=== PATIENT | female | born 1945 | race Caucasian/White ===

== ENCOUNTER 2017-12-02 12:15 | Inpatient (IN) | payer MEDICARE ==
[2017-12-02] MEDS ORDERED: Albuterol Sulfate 2.5 mg/3 ml Neb ONE ×2 (12:41→12:42)
[2017-12-02] MEDS ORDERED: methylPREDNISolone Sod Succ/PF 125 MG/2 ML VIAL ONE (13:09)
[2017-12-02] MEDS ORDERED: Water For Inject, Bacteriostat 30 ML ONE (13:09)
[2017-12-02 13:13] LABS: #Eosinphils 0.1 thou/uL (0.0-0.7); #Lymphocytes 0.6 thou/uL (1.20-3.40); #Monocytes 0.8 thou/uL (0.11-0.59); #Neutrophils 6.8 thou/uL (1.40-6.50); %Basophils 0.1 % (0.0-1.0); %Eosinophils 1.3 % (0.0-10.0); %Lymphocytes 7.5 % (21.0-51.0); %Monocytes 9.6 % (0.0-10.0); %Neutrophils 81.4 % (42.0-75.0); Hemoglobin 9.9 g/dL (12.0-16.0); Mean Corpuscular HGB CONC 31.2 g/dL (32.0-36.0); Mean Corpuscular Hemoglobin 30.4 pg (27.0-31.0); Mean Corpuscular Volume 97.5 fL (78.0-98.0); Mean Platelet Volume 8.8 fL (7.4-10.4); Platelet Count 173 thou/uL (130-400); RBC Distribution Width 14.3 % (11.5-14.5); Red Blood Cell (RBC) Count 3.25 mill/uL (4.20-5.40); White Blood Cell (WBC) Count 8.4 thou/uL (4.8-10.8)
[2017-12-02 13:26] LABS: ALT (SGPT) 21 U/L (8-55); AST (SGOT) 31 U/L (5-34); Albumin 3.8 g/dL (3.4-4.8); Alkaline Phosphatase 64 U/L (40-150); BUN (Urea Nitrogen) 66 mg/dL (9.8-20.1); Bilirubin, Total 0.5 mg/dL (0.2-1.2); CK (CPK) 42 U/L (29-168); Calc. Creatinine Clearance 0 mL/min (70-130); Calcium 9.9 mg/dL (7.8-10.44); Estimated GFR-MDRD 33; Globulin 5.1 g/dL (2.4-3.5); Glucose 171 mg/dL (80-115); Protein, Total 8.9 g/dL (6.0-8.3)
[2017-12-02 13:30] LABS: CKMB 2.4 ng/mL (0-6.6); Troponin I 0.086 ng/mL (< 0.028)
[2017-12-02] MEDS ORDERED: Magnesium 2 GM/50 ML 2 GM in Premix Bag 1 BAG IVPB SCH (13:30)
[2017-12-02 13:36] LABS: Anion Gap 22 mmol/L (10-20); Carbon Dioxide 32 mmol/L (23-31); Chloride 87 mmol/L (98-107); Potassium 5.1 mmol/L (3.5-5.1); Sodium 136 mmol/L (136-145)
[2017-12-02 13:47] LABS: Actual Bicarbonate (HCO3a) 55.2 mEq/L (22-28); Analyzer IN Cardio ER; Base Excess (BEa) 21.9 mEq/L (-2.0 to +3.0); Calcium, Ionized 1.21 mmol/L (1.12-1.30); Hemoglobin (Hb) 10.5 g/dL (12.0-16.0); O2 Tension (PaO2) 66.4 mmHg (> 70.0); Potassium - ABG Lab 4.64 mmol/L (3.70-5.30)
[2017-12-02 14:23] LABS: Lactic Acid 2.7 mmol/L (0.5-2.2)
--- NOTE | 2017-12-02 14:33 | RAD ---
CHEST 1 VIEW: Date: 12/02/17 HISTORY: 71-year-old female with history of dyspnea, history of CODP, worse today. COMPARISON: 07/29/16. FINDINGS: Cardiomegaly with bilateral vascular congestion and interstitial and alveolar parenchymal changes, wh ich appear slightly more prominent in the right upper lobe than on the most recent study of 07/29/16, although when compared to an older study of 07/26/16, the overall appearance is stable. IMPRESSION: Marked stable cardiomegaly with bilateral vascular congestion and increased linear and interstitial m arkings noted bilaterally with small pleural effusions. Slightly more focally prominent alveolar and interstitial parenchymal disease in the right upper lobe when compared to 07/29/16, raising concern f or small patchy of right upper lobe pneumonia. Correlation with clinical and laboratory findings. Tessa rt-term follow-up for complete clearing or stability is suggested. POS: [facility]
[2017-12-02] MEDS ORDERED: Cefepime 2 GM VIAL ONE (15:15)
[2017-12-02] MEDS ORDERED: ISOVUE-370 76%-LOCM 1 ML ONE (15:17)
[2017-12-02] MEDS ORDERED: CCU Electrolyte Replacement 1 EACH IVPB SCH (15:55)
[2017-12-02] MEDS ORDERED: Bisacodyl 5 MG TAB PO PRN (15:55)
[2017-12-02] MEDS ORDERED: Acetaminophen 650 MG Suppository PR PRN (15:55)
--- NOTE | 2017-12-02 16:24 | CT ---
CTA CHEST WITH CONTRAST WITH 3D VOLUME RENDERING: Indication: Chest pain. Shortness of breath. FINDINGS: There is prominence of the pulmonary arterial system which may relate to sequellae from pulmonary art tamir hypertension. There is no significant filling defect to indicate acute pulmonary embolus. Scatter ed vascular disease is present including coronary artery calcium. There is enlargement of the cardiac chambers. Several enlarged thoracic lymph nodes are present. There is a 3.8 cm transverse left poste rior apical mass with spiculated enlargement. Diffuse ground glass opacity and interstitial prominenc e of lung is present. There is bilobed nodularity of the anterior right upper lobe measuring 2.8 cm. Bilateral pleural based irregularity and thickening is seen. There is abnormal soft tissue mass like expansion with osseous destruction involving anterior right second rib indicative of a metastatic les ion. There is nonspecific mild wall prominence of the visualized esophagus with retained ingested mat erial IMPRESSION: 1. There is no evidence of pulmonary embolus. 2. Left upper lobe mass and right upper lobe nodularity indicative of malignancy. 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 3. Metastatic adenopathy of the chest. 4. Enlarged pulmonary arterial system indicating pulmonary artery hypertension. 5. Recommend pulmonary medicine consultation for further care. POS: [facility]
--- NOTE | 2017-12-02 16:59 | HP ---
DATE OF ADMISSION: 12/02/2017 PRIMARY CARE PROVIDER: Dr. Jayant Delgado in [place]. CHIEF COMPLAINT: Shortness of breath. HISTORY OF PRESENT ILLNESS: Ms. Chavez is a 71-year-old lady who was seen at [facility] on 12/02/2017. The patient is currently lethargic, unable to provide any significant histor y. History was obtained from her daughter and granddaughter by the bedside, review of medical record s and discussion with emergency room physician. Ms. Chavez has chronic obstructive pulmonary disease and is followed by Dr. Finnegan as outpatient. Two days ago, she became drowsy and lethargic. She developed shortness of breath yesterday. Family reports that she has a chronic cough with whitish sputum, which has not changed recently. There is n o history of any fevers, chest pain, nausea, vomiting or diarrhea. No sick contacts at home. She agosto s not received the influenza vaccine this year. Today, she went into the bathroom and fell, injuring her mid back. No history of head trauma or loss of consciousness. REVIEW OF SYSTEMS: Could not be completed secondary to the patient's noncooperation. PAST MEDICAL HISTORY: Chronic obstructive pulmonary disease, diabetes mellitus, atrial fibrillation, hypertension, congestive heart failure and intubation in the past for respiratory failure. PAST SURGICAL HISTORY: Right breast lumpectomy and tonsillectomy. SOCIAL HISTORY: The patient is an ex-smoker. No alcohol use or recreational drug use. ALLERGIES: She is allergic to ASPIRIN and ERYTHROMYCIN and CODEINE. In our electronic system, she a lso lists RIVAROXABAN, WARFARIN and DABIGATRAN as allergies. Family reports that this is not true al romulo, but she is afraid that she will bruise excessively, which has happened in the past when she wa s on blood thinners and she therefore lists them as allergies. CURRENT MEDICATIONS: Advair Diskus 500/50 mcg 1 puff every 12 hours, metformin 500 mg 2 times a day, diltiazem 90 mg 2 times a day, digoxin 125 mcg daily, anastrozole 1 mg daily, torsemide 20 mg daily, levalbuterol inhalation 4 times a day, ipratropium inhalation 4 times a day, Plavix 75 mg daily, Joseph iresp 500 mcg daily, metolazone as needed, Claritin D 24 hours as needed. CODE STATUS: I discussed her code status with her family members. She is full code. FAMILY HISTORY: No family history of premature coronary artery disease. PHYSICAL EXAMINATION: GENERAL: Ms. Chavez is sleepy, but arousable, not in acute distress. VITAL SIGNS: Blood pressure is 146/73, pulse 76, respiratory rate is 28 and oxygen saturation 96% on bilevel positive airway pressure machine. She is afebrile. EYES: No scleral icterus. No conjunctival pallor. ENT: Difficult to assess because she is still on BiPAP. Mucosal membranes appear moist. NECK: Supple. No lymphadenopathy. Difficult to assess jugular veins. RESPIRATORY: Accessory muscles of breathing are active. Chest wall movements are symmetric bilatera lly. LUNGS: Reveals right upper lobe crackles. CARDIOVASCULAR: S1 and S2 are heard, regular. Peripheral pulses palpable. ABDOMEN: Soft, nontender, bowel sounds are heard, no hepatomegaly. MUSCULOSKELETAL: The patient is moving all four extremities. NEUROLOGIC: Full neurologic examination not possible secondary to the patient's noncooperation. No facial droop. Deep tendon reflexes are 2+. SKIN: No rashes or subcutaneous nodules. She has bilateral lower extremity edema. LYMPHATIC: No cervical lymphadenopathy. PSYCHIATRIC: Unable to assess mood, affect or orientation to person, place or time. LABORATORY DATA: Ms. Chavez's labs and investigations were reviewed. I reviewed her electrocardiogram , which shows right bundle branch block, the patient is in sinus rhythm, no ST changes to suggest an acute coronary syndrome. I also reviewed her chest x-ray, which shows right upper lobe infiltrates. She has normal white count, normocytic anemia with hemoglobin 9.9, normal platelet count, elevated D -dimer of 1.98, normal sodium, normal potassium, elevated blood urea nitrogen of 66, elevated creatin ine of 1.57, last known creatinine 1.08 on 11/22/2017, elevated lactic acid level of 2.7, normal tota l bilirubin, normal AST, normal ALT, indeterminate troponin I of 0.086, elevated BNP of 446.9 and nor mal albumin. Her total protein and globulin levels are elevated. ASSESSMENT AND PLAN: Ms. Chavez is a pleasant 71-year-old lady who was seen at [facility] on 12/02/2017. Her problem list includes: 1. Acute on chronic hypercapnic and hypoxic respiratory failure: Ms. Chavez was saturating low when s he was initially seen. She is now on supplemental oxygen. She does use oxygen at 3 liters per minut e at home. Blood gases have also been done and the emergency room physician reports that she has hyp ercapnia. The official report is not yet available in the computer system. The most likely explanat ion for her respiratory failure is a chronic obstructive pulmonary disease exacerbation, although pne umonia cannot be ruled out at this time given the chest x-ray finding. 2. Congestive heart failure is possible as well, but appears less likely. She will be admitted to [facility] for further management. We will continue her on bilevel positive airway pressure for now . If she continues to be lethargic and does not improve, she may need intubation. 3. Acute on chronic kidney disease stage 3: Ms. Chavez is in acute renal insufficiency, most likely s econdary to poor oral intake. She does have pulmonary vascular congestion and holding off on fluids until the clinical scenarios clear. 4. Chronic obstructive pulmonary disease exacerbation: She has received oxygen, steroids, bronchodi lators, cefepime and levofloxacin. I will continue the same. Pulmonology Service has been consulted by emergency room physician. 5. Diabetes mellitus type 2: We will start Accu-Cheks and insulin sliding scale. 6. Elevated D-dimer: Please note that the patient had CT angiogram of the chest, report is pending. If it is positive for pulmonary embolism, we will start her on heparin drip. 7. Hypertension: Monitor vital signs, titrate antihypertensives as needed. Many thanks for allowing me to participate in your patient's care. Please feel free to contact me wi th any questions or concerns. LEVEL OF RISK: High. LEVEL OF COMPLEXITY: High.
[2017-12-02 17:29] LABS: pH, Arterial 7.19 (7.35-7.45)
[2017-12-02 17:30] LABS: ALV-art Gradient 249.325 (0-20); CO2 Tension 146.7 mmHg (35.0-45.0); Puncture Site RBA
[2017-12-02] MEDS ORDERED: CCU ELECTROLYTE REPLACEMENT PROTOCOL FS PRN (18:23)
[2017-12-02] MEDS ORDERED: Magnesium Oxide 400 MG TAB PO PRN ×2 (18:23)
[2017-12-02] MEDS ORDERED: Potassium Chloride 40 MEQ in Premix Bag 1 BAG IVPB PRN (18:23)
[2017-12-02] MEDS ORDERED: Potassium Phosphate 12 MMOL in Sodium Chloride 0.9% 250 ML 250 ML IV PRN (18:23)
[2017-12-02] MEDS ORDERED: Potassium Phosphate 15 MMOL in Sodium Chloride 0.9% 250 ML 250 ML IV PRN (18:23)
[2017-12-02] MEDS ORDERED: Potassium Phosphate 9 MMOL in Sodium Chloride 0.9% 100 ML IVPB PRN (18:23)
[2017-12-02] MEDS ORDERED: Potassium Chloride 20 MEQ TAB PO PRN (18:23)
[2017-12-02] MEDS ORDERED: Magnesium 2 GM/NS 0.9% 100 ML 2 GM in Premix Bag 1 BAG IVPB PRN (18:23)
[2017-12-02] MEDS ORDERED: Potassium Chloride 40 MEQ in Sodium Chloride 0.9% 250 ML 250 ML IVPB PRN (18:23)
[2017-12-02 19:49] LABS: Troponin I 0.088 ng/mL (< 0.028)
[2017-12-02] MEDS ORDERED: hydrALAZINE 20 MG/ML VIAL SLOW IVP SCH (20:30)
[2017-12-02] MEDS: Heparin 5,000 UNITS/ML VIAL SC SCH (21:02)
[2017-12-03 04:26] LABS: #Lymphocytes 0.4 thou/uL (1.20-3.40); #Monocytes 0.4 thou/uL (0.11-0.59); #Neutrophils 4.3 thou/uL (1.40-6.50); %Basophils 0.1 % (0.0-1.0); %Eosinophils 0.9 % (0.0-10.0); %Lymphocytes 7.3 % (21.0-51.0); %Monocytes 7.4 % (0.0-10.0); %Neutrophils 84.4 % (42.0-75.0); Hemoglobin 9.5 g/dL (12.0-16.0); Mean Corpuscular HGB CONC 30.2 g/dL (32.0-36.0); Mean Corpuscular Hemoglobin 29.4 pg (27.0-31.0); Mean Corpuscular Volume 97.4 fL (78.0-98.0); Mean Platelet Volume 8.8 fL (7.4-10.4); Platelet Count 164 thou/uL (130-400); RBC Distribution Width 14.1 % (11.5-14.5); Red Blood Cell (RBC) Count 3.24 mill/uL (4.20-5.40); White Blood Cell (WBC) Count 5.1 thou/uL (4.8-10.8)
[2017-12-03 04:43] LABS: BUN (Urea Nitrogen) 69 mg/dL (9.8-20.1); Calc. Creatinine Clearance 40 mL/min (70-130); Calcium 9.5 mg/dL (7.8-10.44); Estimated GFR-MDRD 33; Glucose 195 mg/dL (80-115)
[2017-12-03 04:52] LABS: Anion Gap 16 mmol/L (10-20); Carbon Dioxide 36 mmol/L (23-31); Chloride 87 mmol/L (98-107); Potassium 5.3 mmol/L (3.5-5.1); Sodium 134 mmol/L (136-145)
[2017-12-03] MEDS ORDERED: hydrALAZINE 20 MG/ML VIAL SLOW IVP PRN (05:11)
[2017-12-03] MEDS: Heparin 5,000 UNITS/ML VIAL SC SCH ×3 (09:42→20:31)
--- NOTE | 2017-12-03 12:10 | CON ---
DATE OF CONSULTATION: 12/03/2017 SERVICE: Pulmonary Medicine. REASON FOR CONSULTATION: Respiratory failure. HISTORY OF PRESENT ILLNESS: The patient is a 71-year-old white female with past medical history significant for very severe COPD. She was in her usual state of health until about 2 days prior to admission when she started having increasing shortness of breath, lower extremity swelling, cough and orthopnea. Ultimately, she was so weak and short of breath that she fell. She was brought to the Emergency Department where she was found to be profoundly hypoxemic and hypercapnic. Her mentation, however, was actually pretty good. They put her on BiPAP and she responded to therapy pretty quickly. She denies any current fevers or chills. She has been coughing up copious amounts of phlegm. It slimy and white. It did not have any color to it. She denies having hemoptysis. She has not been having significant changes to her weight or night sweats. She does get hot and cold fairly easily, but this is a lifelong thing and there has not been any change to that recently. Overnight, she was placed on BiPAP. She is talking in full sentences with BiPAP, but without it, she decompensates fairly quickly. PAST MEDICAL HISTORY: 1. COPD, very severe. 2. Chronic hypoxic respiratory failure. 3. Type 2 diabetes mellitus. 4. Atrial fibrillation. 5. Hypertension. 6. Chronic diastolic heart failure. 7. Mitral regurgitation. 8. Pulmonary hypertension. PAST SURGICAL HISTORY: 1. Lumpectomy of the right breast. 2. Tonsillectomy. SOCIAL HISTORY: She has a former history of smoking. She had a greater than 50 -pack-year history, but quit within the last 10 years. She denies any alcohol or illicit drug use. She has no exposure to chemicals, dust, asbestos or tuberculosis. FAMILY HISTORY: Noncontributory. ALLERGIES: ASPIRIN, ERYTHROMYCIN, CODEINE, XARELTO, PRADAXA, COUMADIN. REVIEW OF SYSTEMS: General, head, ears, eyes, nose, throat, cardiovascular, respiratory, GI, , musculoskeletal, neurologic and skin is negative except as mentioned in the HPI. PHYSICAL EXAMINATION: VITAL SIGNS: Afebrile. Pulse 85, blood pressure 167/95, respirations 23, saturation 95% on BiPAP. She is requiring 40% FiO2 and a PEEP of 5. GENERAL: The patient is awake and alert, in no apparent distress. LUNGS: Excellent air entry. Rhonchi are present throughout bilateral lung cloud. There are also extensive crackles. Dependent wheezing is present with a prolonged expiratory phase. HEART: Normal rate, regular. ABDOMEN: Soft, nontender, nondistended. Bowel sounds are positive. MUSCULOSKELETAL: No cyanosis or clubbing. There is diffuse 2+ to 3+ pitting throughout. GENITOURINARY: No Lyon catheter. NEUROLOGIC: Grossly nonfocal. LABORATORY DATA: WBC 5.1, hemoglobin 9.5, platelets 164,000. INR 0.9. D- dimer 1.98. PH 7.19, pCO2 150, pO2 66. Creatinine 1.57 and roughly stable. Basic metabolic profile is otherwise unremarkable. Potassium is up trending to 5.3. Chloride and sodium are both elevated. Troponin is gently up trending to 0.08. Liver function studies were previously unremarkable. Her BNP is at a historic high of 450. Urinalysis is unremarkable. Digoxin level was recently 1.12. Gram positive cocci is growing in one blood culture. The species is yet to be identified. IMAGING: CTA of the chest demonstrates a small amount of infiltrate in the right base. There is excessive interstitial fullness and ground glass opacifications scattered throughout bilateral lungs. This is in keeping with her volume overload state. She also has a left upper lobe mass, which is new. ASSESSMENT: 1. Acute on chronic hypoxic and hypercapnic respiratory failure. 2. Chronic obstructive pulmonary disease with acute exacerbation. 3. Community-acquired pneumonia, possible. 4. Pulmonary mass. 5. Acute on chronic diastolic and valvular heart failure. DISCUSSION: We will need to start to diurese this patient. She has a little bit of an acute kidney injury, but clinically she is volume overload and I think she can tolerate some Lasix. We will continue her antibiotics, nebulized medications and steroids. Once her respiratory issues are under better control , she will need a biopsy of this left upper lobe mass, but we will be able to postpone that for a couple of days if not a week to optimize her breathing. Pulmonary Critical Care will continue to follow along. She will certainly need to remain in the IMCU until she can tolerate full BiPAP breaks for 24 hours. 70 minutes have been devoted to this patient in various activities. I personally reviewed all imaging studies and laboratory data noted within this document. For fifty percent of this time, I was interacting with the patient at the bedside or coordinating care with the care team. For the remainder of the time I was immediately available to the patient in the hospital unit. MAHIN
[2017-12-03] MEDS ORDERED: Diltiazem HCl SR 90 mg Capsule PO SCH (12:15)
[2017-12-03] MEDS: Furosemide 40 MG/4 ML VIAL SLOW IVP SCH (15:39)
[2017-12-03] MEDS ORDERED: Cefepime 1 GM in Sodium Chloride 0.9% 100 ML IVPB SCH (16:00)
[2017-12-03] MEDS: Diltiazem HCl SR 90 mg Capsule PO SCH (20:30)
[2017-12-03] MEDS ORDERED: Vancomycin HCl 1 GM in Premix Bag 1 BAG IVPB SCH (21:00)
[2017-12-03] MEDS: Acetaminophen 325 MG TAB PO PRN (21:12)
[2017-12-04 04:48] LABS: #Lymphocytes 0.4 thou/uL (1.20-3.40); #Monocytes 0.7 thou/uL (0.11-0.59); #Neutrophils 5.1 thou/uL (1.40-6.50); %Basophils 0.1 % (0.0-1.0); %Eosinophils 0.3 % (0.0-10.0); %Monocytes 11.4 % (0.0-10.0); %Neutrophils 81.2 % (42.0-75.0); Hemoglobin 9.1 g/dL (12.0-16.0); Mean Corpuscular HGB CONC 30.9 g/dL (32.0-36.0); Mean Corpuscular Hemoglobin 29.8 pg (27.0-31.0); Mean Corpuscular Volume 96.3 fL (78.0-98.0); Mean Platelet Volume 8.8 fL (7.4-10.4); Platelet Count 184 thou/uL (130-400); RBC Distribution Width 13.9 % (11.5-14.5); Red Blood Cell (RBC) Count 3.06 mill/uL (4.20-5.40); White Blood Cell (WBC) Count 6.3 thou/uL (4.8-10.8)
[2017-12-04 05:08] LABS: BUN (Urea Nitrogen) 67 mg/dL (9.8-20.1); Calc. Creatinine Clearance 49 mL/min (70-130); Calcium 9.1 mg/dL (7.8-10.44); Estimated GFR-MDRD 40; Glucose 111 mg/dL (80-115); Magnesium 2.5 mg/dL (1.6-2.6); Phosphorus 2.5 mg/dL (2.3-4.7)
[2017-12-04 05:12] LABS: Digoxin 1.02 ng/mL (0.8-2.0)
[2017-12-04 05:17] LABS: Anion Gap 14 mmol/L (10-20); Carbon Dioxide 40 mmol/L (23-31); Chloride 92 mmol/L (98-107); Potassium 4.7 mmol/L (3.5-5.1); Sodium 141 mmol/L (136-145)
[2017-12-04] MEDS: Furosemide 40 MG/4 ML VIAL SLOW IVP SCH (06:11)
[2017-12-04] MEDS: Acetaminophen 325 MG TAB PO PRN (06:26)
--- NOTE | 2017-12-04 08:44 | PDOC.PN ---
- Subjective Encounter Start Date: 12/03/17 Encounter Start Time: 15:40 -: old records requested/rev Pt seen and examined, chart reviewed in its entirety, this is my first visit with this patient follow up for AECOPD, acute on chronic hypoxemic and hypercapneic resp failure No F/C, no N/V/D/C, no CP no cough or sputum production. BiPAP dependant at the moment All systems reviewed and neg except as above - Objective Resuscitation Status: Resuscitation Status FULL:Full Resuscitation MAR Reviewed: Yes Vital Signs & Weight: Vital Signs (12 hours) Temp Pulse Resp BP Pulse Ox 12/04/17 07:58 89 L 12/04/17 07:55 76 20 89 L 12/04/17 07:40 88 L 12/04/17 07:37 98.2 F 73 28 H 161/88 H 95 12/04/17 04:00 98.2 F 81 21 H 163/84 H 94 L 12/04/17 02:30 72 23 H 96 12/04/17 00:04 59 L 18 96 12/04/17 00:00 98 F 64 21 H 163/78 H 96 12/03/17 22:16 64 23 H 93 L Weight Weight 160 lb I&O: 12/03/17 12/04/17 12/05/17 06:59 06:59 06:59 Intake Total 715 1600 Output Total 0 Balance 715 1600 Result Diagrams: 12/04/17 03:39 12/04/17 03:39 Radiology Reviewed by me: Yes EKG Reviewed by me: Yes Phys Exam - Physical Examination Constitutional: NAD HEENT: PERRLA, moist MMs, sclera anicteric, oral pharynx no lesions Neck: no nodes, no JVD, supple, full ROM poor air movement, no prolonged expiration, no wheezes tachy, regular Gastrointestinal: soft, non-tender, no distention, positive bowel sounds Musculoskeletal: pulses present, edema present Neurological: non-focal, normal sensation, moves all 4 limbs Lymphatic: no nodes Psychiatric: normal affect, A&O x 3 Skin: no rash, normal turgor, cap refill <2 seconds Dx/Plan (1) THUY (acute kidney injury) Code(s): N17.9 - ACUTE KIDNEY FAILURE, UNSPECIFIED Status: Acute Comment: improving - Prob cardiorenal syndrome (2) Abnormal cardiac enzyme level Code(s): R74.8 - ABNORMAL LEVELS OF OTHER SERUM ENZYMES Status: Acute Comment: Prob due to demand ischemia (3) Acute on chronic diastolic (congestive) heart failure Code(s): I50.33 - ACUTE ON CHRONIC DIASTOLIC (CONGESTIVE) HEART FAILURE Status : Acute Comment: on Diuretics (4) Acute respiratory failure with hypoxia and hypercapnia Code(s): J96.01 - ACUTE RESPIRATORY FAILURE WITH HYPOXIA; J96.02 - ACUTE RESPIRATORY FAILURE WITH HYPERCAPNIA Status: Acute Comment: on BIPAP. Pulm following, not tolerating being off for any time at present (5) Atrial fibrillation Code(s): I48.91 - UNSPECIFIED ATRIAL FIBRILLATION Status: Chronic Qualifiers: Atrial fibrillation type: chronic Qualified Code(s): I48.2 - Chronic atrial fibrillation (6) COPD with exacerbation Code(s): J44.1 - CHRONIC OBSTRUCTIVE PULMONARY DISEASE W (ACUTE) EXACERBATION Status: Acute (7) Chronic respiratory acidosis Code(s): E87.2 - ACIDOSIS Status: Chronic (8) DM2 (diabetes mellitus, type 2) Status: Chronic Qualifiers: Diabetes mellitus halfway insulin use: without halfway use Diabetes mellitus complication status: with kidney complications Diabetes mellitus complication detail: with chronic kidney disease Chronic kidney disease stage : stage 2 (mild) Qualified Code(s): E11.22 - Type 2 diabetes mellitus with diabetic chronic kidney disease; N18.2 - Chronic kidney disease, stage 2 (mild) (9) HTN (hypertension) Code(s): I10 - ESSENTIAL (PRIMARY) HYPERTENSION Status: Chronic Qualifiers: Hypertension type: essential hypertension Qualified Code(s): I10 - Essential (primary) hypertension - Plan cont current plan of care, continue antibiotics, PT/OT, respiratory therapy, out of bed/ambulate * .
[2017-12-04] MEDS: Diltiazem HCl SR 90 mg Capsule PO SCH ×2 (09:04→20:55)
[2017-12-04] MEDS: Heparin 5,000 UNITS/ML VIAL SC SCH ×3 (09:05→20:55)
[2017-12-04] MEDS ORDERED: Acetaminophen 500 MG TAB PO PRN (10:00)
[2017-12-04] MEDS ORDERED: Ondansetron PF 4 MG/2 ML Vial IVP PRN (10:00)
[2017-12-04] MEDS ORDERED: Senokot S 8.6-50 MG TAB PO PRN (10:00)
[2017-12-04] MEDS ORDERED: Diabetic Tussin 200 MG/10 ML UDCUP PO PRN (10:00)
[2017-12-04] MEDS ORDERED: Benzonatate 100 MG CAP PO PRN (10:00)
[2017-12-04] MEDS ORDERED: cloNIDine 0.1 MG TAB PO PRN (10:00)
[2017-12-04] MEDS ORDERED: Nitroglycerin 0.4 MG TAB (25 Tab Bottle) SL PRN (10:00)
[2017-12-04] MEDS ORDERED: Clopidogrel Bisulfate 75 MG TAB PO SCH ×2 (10:58→12:45)
[2017-12-04] MEDS ORDERED: Digoxin 0.125 MG TAB PO SCH ×2 (10:58→12:45)
--- NOTE | 2017-12-04 12:48 | PRG ---
DATE OF SERVICE: 12/04/2017 SERVICE: Pulmonary Medicine. INTERVAL HISTORY: The patient is doing great from a respiratory standpoint. She is breathing comfor tably. She is back on 3 liters nasal cannula. Her saturations are holding at 90%. Whenever she eat s, she will dip into the low 80s, but this is back to baseline. She feels that she is actually much improved. She is going to work on getting onto a nocturnal ventilator. She does have horrendous hyp ercapnic respiratory failure. She previously failed attempts at getting her on BiPAP and I think a v olume ventilation method may be a better strategy for her. PHYSICAL EXAMINATION: VITAL SIGNS: Afebrile, pulse 92, blood pressure 155/80, respirations 26, saturation 95% on 4 liters nasal cannula. GENERAL: The patient is awake and alert, in no apparent distress. LUNGS: Decreased air entry. There is a prolonged expiratory phase. Crackles are much improved. Th ere are no rhonchi or wheezing today. HEART: Normal rate, regular. ABDOMEN: Soft, nontender, nondistended. Bowel sounds are positive. MUSCULOSKELETAL: No cyanosis or clubbing. There is no pitting in the bilateral lower extremities. NEUROLOGIC: Grossly nonfocal. LABORATORY DATA: WBC 6.3, hemoglobin 9.1, platelets 184,000. D-dimer 1.98. PH 7.19, pCO2 146, pO2 66. Creatinine is down trending to 1.31, BUN 67, bicarb 40, chloride 92. Basic metabolic profile, m agnesium and phosphorus are within the normal limits. TSH is normal. Digoxin 1.02. Blood cultures are growing coag negative staph. ASSESSMENT: 1. Acute on chronic hypoxic and hypercapnic respiratory failure. 2. Chronic obstructive pulmonary disease with acute exacerbation. 3. Community-acquired pneumonia, possible. 4. Pulmonary mass. 5. Acute on chronic diastolic and valvular heart failure. DISCUSSION AND PLAN: The patient has made a profound improvement over the last 24 hours in her breat soto. That being said, she is not quite back to baseline yet. We have gotten her dry fairly quickly . We will back off on her diuretics. I am going to order volume ventilation at discharge for nightt estela and as needed daytime use for treatment of her chronic respiratory failure. She has previously f vern home BiPAP and it is insufficient for this patient. We will address the pulmonary mass once sh aneta is out of the IMCU, but she will need to stay here for an additional day.
--- NOTE | 2017-12-04 14:53 | PDOC.PN ---
- Subjective Encounter Start Date: 12/04/17 Encounter Start Time: 14:48 Subjective: feels much better.off of Bipap - Objective Resuscitation Status: Resuscitation Status FULL:Full Resuscitation MAR Reviewed: Yes Vital Signs & Weight: Vital Signs (12 hours) Temp Pulse Resp BP Pulse Ox 12/04/17 12:58 79 12/04/17 12:34 79 12/04/17 12:28 79 34 H 89 L 12/04/17 12:10 76 24 H 87 L 12/04/17 11:34 98.3 F 92 26 H 155/80 H 95 12/04/17 07:58 89 L 12/04/17 07:55 76 20 89 L 12/04/17 07:40 88 L 12/04/17 07:37 98.2 F 73 28 H 161/88 H 95 12/04/17 04:00 98.2 F 81 21 H 163/84 H 94 L Weight Weight 160 lb I&O: 12/03/17 12/04/17 12/05/17 06:59 06:59 06:59 Intake Total 715 1600 600 Output Total 0 Balance 715 1600 600 Result Diagrams: 12/04/17 03:39 12/04/17 03:39 Additional Labs: Microbiology 12/02/17 12:52 Venous blood - Right Arm Blood Culture - Preliminary Coagulase Neg Staphylococcus 12/02/17 12:52 Venous blood - Left Arm Blood Culture - Preliminary NO GROWTH AT 48 HOURS Laboratory Tests 11/22/17 12/02/17 12/02/17 09:30 12:52 12:52 Creatinine 1.08 1.57 H Troponin I 0.086 H TSH 3rd Generation 12/02/17 12/02/17 12/03/17 16:27 19:13 03:59 Creatinine 1.57 H Troponin I 0.080 H 0.088 H TSH 3rd Generation 12/04/17 12/04/17 03:39 03:39 Creatinine 1.31 H Troponin I TSH 3rd Generation [id number] Phys Exam - Physical Examination mild respiratory distress HEENT: PERRLA, moist MMs, sclera anicteric, oral pharynx no lesions Neck: no nodes, no JVD, supple, full ROM Respiratory: no wheezing, no rales, no rhonchi, clear to auscultation bilateral Cardiovascular: RRR, no significant murmur, no rub Gastrointestinal: soft, non-tender, no distention, positive bowel sounds Musculoskeletal: no edema, pulses present Neurological: non-focal, normal sensation, moves all 4 limbs Psychiatric: normal affect, A&O x 3 Skin: no rash Dx/Plan (1) Acute on chronic diastolic (congestive) heart failure Code(s): I50.33 - ACUTE ON CHRONIC DIASTOLIC (CONGESTIVE) HEART FAILURE Status : Acute Comment: on Diuretics (2) Acute respiratory failure with hypoxia and hypercapnia Code(s): J96.01 - ACUTE RESPIRATORY FAILURE WITH HYPOXIA; J96.02 - ACUTE RESPIRATORY FAILURE WITH HYPERCAPNIA Status: Acute Comment: on BIPAP. Pulm following, not tolerating being off for any time at present (3) COPD with exacerbation Code(s): J44.1 - CHRONIC OBSTRUCTIVE PULMONARY DISEASE W (ACUTE) EXACERBATION Status: Acute (4) THUY (acute kidney injury) Code(s): N17.9 - ACUTE KIDNEY FAILURE, UNSPECIFIED Status: Acute Comment: improving - Prob cardiorenal syndrome (5) Hyperkalemia Code(s): E87.5 - HYPERKALEMIA Status: Resolved (6) Atrial fibrillation Code(s): I48.91 - UNSPECIFIED ATRIAL FIBRILLATION Status: Chronic Qualifiers: Atrial fibrillation type: chronic Qualified Code(s): I48.2 - Chronic atrial fibrillation (7) DM2 (diabetes mellitus, type 2) Status: Chronic Qualifiers: Diabetes mellitus group home insulin use: without group home use Diabetes mellitus complication status: with kidney complications Diabetes mellitus complication detail: with chronic kidney disease Chronic kidney disease stage : stage 2 (mild) Qualified Code(s): E11.22 - Type 2 diabetes mellitus with diabetic chronic kidney disease; N18.2 - Chronic kidney disease, stage 2 (mild) (8) HTN (hypertension) Code(s): I10 - ESSENTIAL (PRIMARY) HYPERTENSION Status: Chronic Qualifiers: Hypertension type: essential hypertension Qualified Code(s): I10 - Essential (primary) hypertension - Plan respiratory therapy, incentive spirometry, out of bed/ambulate, DVT proph w/SCDs Cont Bipap prn.cont nebs,steroids. -: restart home meds. -: Pt reports ASA allergy (can't breathe).will hold -: renal Fx and hyperkalemia better -: am labs.HD stable * . Review of Systems - Review of Systems Constitutional: negative: fever, chills, sweats, weakness, malaise, other Respiratory: SOB with Excertion. negative: Cough, Dry, Shortness of Breath, Hemoptysis, Pleuritic Pain, Sputum, Wheezing Cardiovascular: negative: chest pain, palpitations, orthopnea, paroxysmal nocturnal dyspnea, edema, light headedness, other Gastrointestinal: negative: Nausea, Vomiting, Abdominal Pain, Diarrhea, Constipation, Melena, Hematochezia, Other Genitourinary: negative: Dysuria, Frequency, Incontinence, Hematuria, Retention , Other Musculoskeletal: negative: Neck Pain, Shoulder Pain, Arm Pain, Back Pain, Hand Pain, Leg Pain, Foot Pain, Other Neurological: negative: Weakness, Numbness, Incoordination, Change in Speech, Confusion, Seizures, Other - Medications/Allergies Allergies/Adverse Reactions: Allergies Allergy/AdvReac Type Severity Reaction Status Date / Time aspirin Allergy Verified 05/23/16 02:23 erythromycin base Allergy Verified 05/23/16 02:23 codeine AdvReac Intermediate NAUSEA/VOMI Verified 06/25/15 12:20 TING rivaroxaban [From Xarelto] AdvReac Intermediate EXCESSIVE Verified 06/25/15 12: 20 BRUISING dabigatran etexilate mesylate AdvReac EXCESSIVE Verified 06/25/15 12:20 [From Pradaxa] BRUISING warfarin sodium AdvReac EXCESSIVE Verified 06/25/15 12:19 [From Coumadin] BRUISING Medications: Current Medications Acetaminophen (Tylenol) 650 mg PO Q4H PRN PRN Reason: Headache/Fever/Mild Pain (1-3) Last Admin: 12/04/17 06:26 Dose: 650 mg Acetaminophen (Tylenol) 650 mg [place] Q4H PRN PRN Reason: Headache/Fever/Mild Pain (1-3) Albuterol/Ipratropium (Duoneb) 3 ml NEB [id number] [facility] Last Admin: 12/04/17 12:10 Dose: 3 ml Albuterol/Ipratropium (Duoneb) 3 ml NEB Q6H PRN PRN Reason: SOB &/or Wheezing Anastrozole (Arimidex) 1 mg PO DAILY [facility] Benzonatate (Tessalon) 100 mg PO Q6H PRN PRN Reason: Cough Bisacodyl (Dulcolax) 10 mg PO DAILYPRN PRN PRN Reason: Constipation Clonidine (Catapres) 0.1 mg PO Q4H PRN PRN Reason: SBP > _160___ Clopidogrel Bisulfate (Plavix) 75 mg PO DAILY [facility] Digoxin (Lanoxin) 0.125 mg PO DAILY [facility] Diltiazem HCl (Cardizem Sr) 90 mg PO BID [facility] Last Admin: 12/04/17 09:04 Dose: 90 mg Furosemide (Lasix) 40 mg PO DAILY[facility] Guaifenesin (Robitussin Sf) 200 mg PO Q4H PRN PRN Reason: Cough Heparin Sodium (Porcine) (Heparin) 5,000 units SC TID [facility] Last Admin: 12/04/17 09:05 Dose: 5,000 units Hydralazine HCl (Apresoline) 10 mg SLOW IVP Q4H PRN PRN Reason: BP >160/100 Last Admin: 12/03/17 05:19 Dose: 10 mg Levofloxacin 750 mg/ Device 150 mls @ 100 mls/hr IVPB Q2D [facility] Methylprednisolone Sodium Succinate (Solu-Medrol) 40 mg IVP DAILY [facility] Last Admin: 12/04/17 09:05 Dose: 40 mg Nitroglycerin (Nitrostat) 0.4 mg SL Q5MIN PRN PRN Reason: Chest Pain Non-Formulary Medication (Roflumilast [Daliresp]) 500 mcg PO DAILY [facility] Ondansetron HCl (Zofran) 4 mg IVP Q6H PRN PRN Reason: Nausea/Vomiting Potassium Chloride (K-Dur) 20 meq PO DAILY [facility] Senna/Docusate Sodium (Senokot S) 2 tab PO BID PRN PRN Reason: Constipation
[2017-12-05 04:20] LABS: #Lymphocytes 0.5 thou/uL (1.20-3.40); #Monocytes 0.9 thou/uL (0.11-0.59); #Neutrophils 5.2 thou/uL (1.40-6.50); %Basophils 0.2 % (0.0-1.0); %Eosinophils 0.3 % (0.0-10.0); %Lymphocytes 7.3 % (21.0-51.0); %Neutrophils 78.2 % (42.0-75.0); Hemoglobin 9.4 g/dL (12.0-16.0); Mean Corpuscular HGB CONC 31.6 g/dL (32.0-36.0); Mean Corpuscular Hemoglobin 30.5 pg (27.0-31.0); Mean Corpuscular Volume 96.6 fL (78.0-98.0); Mean Platelet Volume 8.1 fL (7.4-10.4); Platelet Count 199 thou/uL (130-400); Red Blood Cell (RBC) Count 3.07 mill/uL (4.20-5.40); White Blood Cell (WBC) Count 6.6 thou/uL (4.8-10.8)
[2017-12-05 04:44] LABS: BUN (Urea Nitrogen) 52 mg/dL (9.8-20.1); Calc. Creatinine Clearance 58 mL/min (70-130); Estimated GFR-MDRD 53; Glucose 121 mg/dL (83-110)
[2017-12-05 04:53] LABS: Anion Gap 14 mmol/L (10-20); Chloride 89 mmol/L (98-107); Potassium 4.3 mmol/L (3.5-5.1); Sodium 141 mmol/L (136-145)
[2017-12-05 04:56] LABS: Carbon Dioxide 42 mmol/L (23-31)
[2017-12-05] MEDS: Acetaminophen 325 MG TAB PO PRN (05:13)
[2017-12-05] MEDS ORDERED: Clopidogrel Bisulfate 75 MG TAB PO SCH (09:00)
[2017-12-05] MEDS: Heparin 5,000 UNITS/ML VIAL SC SCH ×3 (09:04→23:08)
[2017-12-05] MEDS: Potassium Chloride 20 MEQ TAB PO SCH ×2 (09:04→09:07)
[2017-12-05] MEDS: Furosemide 40 MG TAB PO SCH (09:04)
[2017-12-05] MEDS: Anastrozole 1 MG TAB PO SCH (09:04)
[2017-12-05] MEDS: Digoxin 0.125 MG TAB PO SCH (09:04)
[2017-12-05] MEDS: Diltiazem HCl SR 90 mg Capsule PO SCH ×2 (09:13→23:07)
--- NOTE | 2017-12-05 11:48 | PRG ---
DATE OF SERVICE: 12/05/2017 SERVICE: Pulmonary Medicine. INTERVAL HISTORY: The patient is doing great from a respiratory standpoint. Denies any current ches t pain or fevers. There is no nausea or vomiting. She actually indicates that her breathing is much improved today compared to yesterday. [birth year]. Unfortunately, we had to talk about the masses in her chest. We have decided to pursue a biopsy in the inpatient setting now that her lungs are optimized. PHYSICAL EXAMINATION: VITAL SIGNS: Afebrile, pulse 65, blood pressure 158/90, respirations 20, saturation 93% on 4 liters nasal cannula. GENERAL: The patient is awake and alert, in no apparent distress. LUNGS: There are decreasing crackles. They are still present. Prolonged expiratory phase is noted. No rhonchi. HEART: Normal rate, regular. ABDOMEN: Soft, nontender, nondistended. Bowel sounds are positive. MUSCULOSKELETAL: No cyanosis or clubbing. There is still 1+ pitting in the bilateral lower extremit ies with chronic stasis changes. NEUROLOGIC: Grossly nonfocal. GENITOURINARY: No Lyon catheter. LABORATORY DATA: WBC 6.6, hemoglobin 9.4, platelets 199,000. Bicarbonate 42. Basic metabolic profi le is otherwise unremarkable. Her creatinine is down trending to 1.02. ASSESSMENT: 1. Acute on chronic hypoxic and hypercapnic respiratory failure. 2. Chronic obstructive pulmonary disease with acute exacerbation. 3. Acute on chronic diastolic and valvular heart failure. 4. Community-acquired pneumonia, unlikely. 5. Pulmonary mass. DISCUSSION AND PLAN: The patient has been optimized from a respiratory standpoint. We will proceed with an IR guided biopsy of this lesion. I gave the patient a small dose of acetazolamide as she rem ains a little volume overloaded, but has developed an alkalosis with her diuretics. Ultimately, on d ischarge from the hospital, we will set her up with home ventilator. When she goes down for her biop sy, she will need to have BiPAP available as she will have a challenging time lying down without its assistance.
--- NOTE | 2017-12-05 14:07 | EKG ---
Test Reason : Blood Pressure : / mmHG Vent. Rate : 084 BPM Atrial Rate : 084 BPM P-R Int : 000 ms QRS Dur : 182 ms QT Int : 430 ms P-R-T Axes : 000 130 -25 degrees QTc Int : 508 ms Undetermined rhythm Right bundle branch block Abnormal ECG Confirmed by LALO MCDONALD DO ([id number]), editorial cartoonist JOSE SANCHEZ ([id number]) on 12/05/2017 2:07:23 PM Referred By: Confirmed By:LALO MCDONALD DO
[2017-12-05] MEDS: AcetaZOLAMIDE 250 MG TAB PO SCH ×2 (16:10→23:07)
--- NOTE | 2017-12-05 17:57 | CT ---
CT GUIDED RIGHT ANTERIOR RIB BIOPSY: Date: 12/05/17 INDICATION: Destructive lesion of the anterior right rib, combined with bilateral pulmonary masses/nodules. PROCEDUR: Informed consent was obtained from the patient. The patient was escorted to the procedural suite and placed in the supine position. The anterior right chest wall mass of interest centered about the ante rior second right rib was localized and the ventral chest was then prepped and draped in the standard sterile fashion. Topical anesthesia was achieved utilizing 1% lidocaine. Small skin incision was mad e, through which a 17 gauge trocar and 18 gauge biopsy was advanced to the leading edge of the mass. Subsequently, three separate core specimens were acquired of the lesion, which were submitted to path ologist, Belen Cisneros, who deemed the specimen adequate for interpretation. All devices were then removed from the patient. The patient tolerated the procedure well without evidence of complication. The patient was returned the patient the hospital floor in stable condition to receive continued care . Imaging was stored for documentation. FINDINGS: 1. Destructive lesion of anterior right second rib. 2. Left upper lobe mass partially visualized. 3. Bilateral pleural effusions with adjacent consolidation. IMPRESSION: Technically successful CT guided biopsy of destructive lesion of anterior right second rib. Pathology results are pending. POS: [facility]
--- NOTE | 2017-12-05 23:10 | PDOC.PN ---
- Subjective Encounter Start Date: 12/05/17 Encounter Start Time: 11:00 Patient seen and examined for Resp failure. On intermittent NIPPV. No new complaints. No overnight events - Objective Resuscitation Status: Resuscitation Status FULL:Full Resuscitation MAR Reviewed: Yes Vital Signs & Weight: Vital Signs (12 hours) Temp Pulse Resp BP Pulse Ox 12/05/17 22:30 76 21 H 94 L 12/05/17 20:00 96 12/05/17 19:26 97.9 F 101 H 31 H 116/114 H 96 12/05/17 18:19 95 26 H 87 L 12/05/17 12:44 89 28 H 90 L Weight Weight 161 lb I&O: 12/04/17 12/05/17 12/06/17 06:59 06:59 06:59 Intake Total 1600 2069 1150 Output Total 0 Balance 1600 0 1150 Result Diagrams: 12/06/17 05:48 12/06/17 05:48 EKG Reviewed by me: Yes (Tele Afib) Phys Exam - Physical Examination Constitutional: NAD Neck: no JVD Respiratory: no wheezing, no rhonchi Bibasilar rales Cardiovascular: no rub, irregular Gastrointestinal: soft, non-tender, positive bowel sounds Musculoskeletal: no edema Neurological: moves all 4 limbs Dx/Plan - Plan DVT proph w/SCDs IMPRESSION: 1. Acute on Chronic hypoxic/hypercapnic resp failure/COPD Exacerbation/Acute on chronic diastolic HF 2. Lung mass 3. THUY on CKD 3/ Contraction alkalosis 4. Hyponatremia/hyperkalemia - resolved 5. Elevated troponins due to demand ischemia 6. Other issues per previous notes PLAN: Repea Echo per CV team Cont Atbx On Acetazolamide AM labs Biopsy today Plavix on hold Cont current meds as below Microbiology 12/02/17 12:52 Venous blood - Right Arm Blood Culture - Final Coagulase Neg Staphylococcus 12/02/17 12:52 Venous blood - Left Arm Blood Culture - Preliminary NO GROWTH AT 48 HOURS Review of Systems - Review of Systems Constitutional: negative: fever, chills, sweats, weakness, malaise, other Cardiovascular: negative: chest pain, palpitations, orthopnea, paroxysmal nocturnal dyspnea, edema, light headedness, other - Medications/Allergies Allergies/Adverse Reactions: Allergies Allergy/AdvReac Type Severity Reaction Status Date / Time aspirin Allergy Verified 05/23/16 02:23 erythromycin base Allergy Verified 05/23/16 02:23 codeine AdvReac Intermediate NAUSEA/VOMI Verified 06/25/15 12:20 TING rivaroxaban [From Xarelto] AdvReac Intermediate EXCESSIVE Verified 06/25/15 12: 20 BRUISING dabigatran etexilate mesylate AdvReac EXCESSIVE Verified 06/25/15 12:20 [From Pradaxa] BRUISING warfarin sodium AdvReac EXCESSIVE Verified 06/25/15 12:19 [From Coumadin] BRUISING Medications: Current Medications Acetaminophen (Tylenol) 650 mg PO Q4H PRN PRN Reason: Headache/Fever/Mild Pain (1-3) Last Admin: 12/05/17 05:13 Dose: 650 mg Acetaminophen (Tylenol) 650 mg [place] Q4H PRN PRN Reason: Headache/Fever/Mild Pain (1-3) Albuterol/Ipratropium (Duoneb) 3 ml NEB [id number] [facility] Last Admin: 12/05/17 18:19 Dose: 3 ml Albuterol/Ipratropium (Duoneb) 3 ml NEB Q6H PRN PRN Reason: SOB &/or Wheezing Anastrozole (Arimidex) 1 mg PO DAILY [facility] Last Admin: 12/05/17 09:04 Dose: 1 mg Benzonatate (Tessalon) 100 mg PO Q6H PRN PRN Reason: Cough Bisacodyl (Dulcolax) 10 mg PO DAILYPRN PRN PRN Reason: Constipation Clonidine (Catapres) 0.1 mg PO Q4H PRN PRN Reason: SBP > _160___ Digoxin (Lanoxin) 0.125 mg PO DAILY [facility] Last Admin: 12/05/17 09:04 Dose: 0.125 mg Diltiazem HCl (Cardizem Sr) 90 mg PO BID [facility] Last Admin: 12/05/17 09:13 Dose: 90 mg Furosemide (Lasix) 40 mg PO DAILY-AC [facility] Last Admin: 12/05/17 09:04 Dose: 40 mg Guaifenesin (Robitussin Sf) 200 mg PO Q4H PRN PRN Reason: Cough Heparin Sodium (Porcine) (Heparin) 5,000 units SC TID [facility] Last Admin: 12/05/17 16:10 Dose: 5,000 units Hydralazine HCl (Apresoline) 10 mg SLOW IVP Q4H PRN PRN Reason: BP >160/100 Last Admin: 12/03/17 05:19 Dose: 10 mg Levofloxacin 750 mg/ Device 150 mls @ 100 mls/hr IVPB Q2D [facility] Last Admin: 12/04/17 17:19 Dose: 150 mls Nitroglycerin (Nitrostat) 0.4 mg SL Q5MIN PRN PRN Reason: Chest Pain Non-Formulary Medication (Roflumilast [Daliresp]) 500 mcg PO DAILY [facility] Ondansetron HCl (Zofran) 4 mg IVP Q6H PRN PRN Reason: Nausea/Vomiting Potassium Chloride (K-Dur) 20 meq PO DAILY [facility] Last Admin: 12/05/17 09:07 Dose: Not Given Senna/Docusate Sodium (Senokot S) 2 tab PO BID PRN PRN Reason: Constipation
[2017-12-06 05:53] LABS: #Lymphocytes 0.8 thou/uL (1.20-3.40); #Monocytes 1.1 thou/uL (0.11-0.59); #Neutrophils 5.7 thou/uL (1.40-6.50); %Basophils 0.3 % (0.0-1.0); %Eosinophils 0.4 % (0.0-10.0); %Lymphocytes 10.4 % (21.0-51.0); %Monocytes 14.4 % (0.0-10.0); %Neutrophils 74.6 % (42.0-75.0); Hemoglobin 11.2 g/dL (12.0-16.0); Mean Corpuscular HGB CONC 30.6 g/dL (32.0-36.0); Mean Corpuscular Hemoglobin 29.9 pg (27.0-31.0); Mean Corpuscular Volume 97.8 fL (78.0-98.0); Platelet Count 214 thou/uL (130-400); RBC Distribution Width 14.3 % (11.5-14.5); Red Blood Cell (RBC) Count 3.75 mill/uL (4.20-5.40); White Blood Cell (WBC) Count 7.6 thou/uL (4.8-10.8)
[2017-12-06 06:17] LABS: Albumin 3.2 g/dL (3.4-4.8); BUN (Urea Nitrogen) 51 mg/dL (9.8-20.1); BUN/Creatinine Ratio 61.45; Calc. Creatinine Clearance 70 mL/min (70-130); Calcium 9.1 mg/dL (7.8-10.44); Estimated GFR-MDRD 68; Glucose 106 mg/dL (83-110); Magnesium 2.3 mg/dL (1.6-2.6); Phosphorus 2.8 mg/dL (2.3-4.7)
[2017-12-06 06:26] LABS: Anion Gap 12 mmol/L (10-20); Chloride 90 mmol/L (98-107); Potassium 4.2 mmol/L (3.5-5.1); Sodium 139 mmol/L (136-145)
[2017-12-06 06:27] LABS: Carbon Dioxide 41 mmol/L (23-31)
[2017-12-06] MEDS: Heparin 5,000 UNITS/ML VIAL SC SCH ×3 (10:45→20:24)
[2017-12-06] MEDS: Potassium Chloride 20 MEQ TAB PO SCH (10:45)
[2017-12-06] MEDS: Digoxin 0.125 MG TAB PO SCH (10:45)
[2017-12-06] MEDS: Furosemide 40 MG TAB PO SCH (10:45)
[2017-12-06] MEDS: Anastrozole 1 MG TAB PO SCH (10:45)
[2017-12-06] MEDS: Diltiazem HCl SR 90 mg Capsule PO SCH ×2 (10:50→20:24)
--- NOTE | 2017-12-06 11:20 | PRG ---
DATE OF SERVICE: 12/06/2017 SERVICE: Pulmonary Medicine. INTERVAL HISTORY: The patient is doing great from a respiratory standpoint. She is breathing comfor tably. She has no complaints of chest pain, fevers, chills, nausea or vomiting. Otherwise, there agosto s been no interval change to her condition. She got her biopsy done yesterday. We are going to give her diet and move her to the floor. She is not ready for discharge yet. We are going to focus our efforts on mobilizing her. She has no complaints overnight. PHYSICAL EXAMINATION: VITAL SIGNS: Afebrile, pulse 76, blood pressure 140/74, respirations 20, saturation 90% on 5 liters nasal cannula. GENERAL: The patient is awake, alert, no apparent distress. LUNGS: There is decreased air entry. Crackles are present. I do not hear any rhonchi or overt whee zing. HEART: Normal rate, regular. ABDOMEN: Soft, nontender, nondistended. Bowel sounds are positive. MUSCULOSKELETAL: No cyanosis or clubbing. There is trace 1+ pitting in the bilateral lower extremit ies. NEUROLOGIC: Grossly nonfocal. LABORATORY DATA: WBC 7.6, hemoglobin 11.2, platelets 214,000. Bicarbonate 41. Basic metabolic prof ile, liver function studies are otherwise unremarkable. BUN is stable at 51 with down trending, crea tinine of 0.83. Magnesium and phosphorus fall within the normal limits. IMAGING: Percutaneous biopsy of the lung was reviewed. There has been interval development in bilat eral pleural effusions. That being said, the interstitial edema and ground glass opacifications that were scattered throughout bilateral lung cloud previously have dramatically improved. There is a p ersistent left upper lobe mass. ASSESSMENT: 1. Acute on chronic hypoxic and hypercapnic respiratory failure. 2. Chronic obstructive pulmonary disease with acute exacerbation, improving. 3. Acute on chronic diastolic and valvular heart failure. 4. Community acquired pneumonia, unlikely. 5. Pulmonary mass. DISCUSSION AND PLAN: We will continue our antibiotics, nebulized medications and steroids. I will g alex the patient a diet. We are going to mobilize her. I have a work with physical therapy and we wi ll try to get her into a chair 3 times on a daily basis. She will continue using her BiPAP at night and p.r.n. for daytime use. On discharge from the hospital, we have already arranged for her to be s et up with a ventilator. I will leave her off the Plavix for the time being. If the rib biopsy is h elpful, we may not have to sample anything else. If on the other hand, it is not helpful, we will pr oceed with a biopsy of the lung mass.
[2017-12-06] MEDS: AcetaZOLAMIDE 250 MG TAB PO SCH ×2 (15:05→20:24)
--- NOTE | 2017-12-06 16:44 | PDOC.PN ---
- Subjective Encounter Start Date: 12/06/17 Encounter Start Time: 10:30 Patient seen and examined for Resp failure. Doing well. No fever/chills/AMS. No new complaints. No overnight events - Objective Resuscitation Status: Resuscitation Status FULL:Full Resuscitation MAR Reviewed: Yes Vital Signs & Weight: Vital Signs (12 hours) Pulse Pulse Pulse Resp BP BP BP 12/06/17 14:05 80 79 134/76 136/77 12/06/17 12:51 77 20 12/06/17 12:45 77 23 H 12/06/17 10:45 79 12/06/17 08:00 12/06/17 07:21 79 20 140/74 12/06/17 05:42 72 18 Pulse Ox Pulse Ox Pulse Ox 12/06/17 14:05 80 L 77 L 12/06/17 12:51 93 L 12/06/17 12:45 94 L 12/06/17 10:45 12/06/17 08:00 84 L 12/06/17 07:21 90 L 12/06/17 05:42 95 Weight Weight 158 lb I&O: 12/05/17 12/06/17 12/07/17 06:59 06:59 06:59 Intake Total 2070 1460 955 Balance 2070 1460 955 Result Diagrams: 12/06/17 05:48 12/07/17 03:28 EKG Reviewed by me: Yes (Tele Afib) Phys Exam - Physical Examination Constitutional: NAD Respiratory: no wheezing, no rhonchi Scat rales at bases Cardiovascular: RRR, no rub Gastrointestinal: soft, non-tender, positive bowel sounds Musculoskeletal: no edema Neurological: moves all 4 limbs Dx/Plan - Plan DVT proph w/SCDs IMPRESSION: 1. Acute on Chronic hypoxic/hypercapnic resp failure/COPD Exacerbation/Acute on chronic diastolic HF 2. Lung mass 3. THUY on CKD 3/ Contraction alkalosis 4. Hyponatremia/hyperkalemia - resolved 5. Elevated troponins due to demand ischemia/Par Afib 6. Other issues per previous notes PLAN: Transfer to medical Cont Atbx Cont Acetazolamide AM labs Cont current meds as below Cont Nebs PAtient refusing anticoagulants for Afib Review of Systems - Medications/Allergies Allergies/Adverse Reactions: Allergies Allergy/AdvReac Type Severity Reaction Status Date / Time aspirin Allergy Verified 04/04/17 02:23 erythromycin base Allergy Verified 05/23/16 02:23 codeine AdvReac Intermediate NAUSEA/VOMI Verified 06/25/15 12:20 TING rivaroxaban [From Xarelto] AdvReac Intermediate EXCESSIVE Verified 06/25/15 12: 20 BRUISING dabigatran etexilate mesylate AdvReac EXCESSIVE Verified 06/25/15 12:20 [From Pradaxa] BRUISING warfarin sodium AdvReac EXCESSIVE Verified 06/25/15 12:19 [From Coumadin] BRUISING Medications: Current Medications Acetaminophen (Tylenol) 650 mg PO Q4H PRN PRN Reason: Headache/Fever/Mild Pain (1-3) Last Admin: 12/05/17 05:13 Dose: 650 mg Acetaminophen (Tylenol) 650 mg [place] Q4H PRN PRN Reason: Headache/Fever/Mild Pain (1-3) Acetazolamide (Diamox) 500 mg PO TID [facility] Stop: 12/06/17 21:01 Last Admin: 12/06/17 15:05 Dose: 500 mg Albuterol/Ipratropium (Duoneb) 3 ml NEB [id number] [facility] Last Admin: 12/06/17 12:51 Dose: 3 ml Albuterol/Ipratropium (Duoneb) 3 ml NEB Q6H PRN PRN Reason: SOB &/or Wheezing Anastrozole (Arimidex) 1 mg PO DAILY [facility] Last Admin: 12/06/17 10:45 Dose: 1 mg Bisacodyl (Dulcolax) 10 mg PO DAILYPRN PRN PRN Reason: Constipation Clonidine (Catapres) 0.1 mg PO Q4H PRN PRN Reason: SBP > _160___ Digoxin (Lanoxin) 0.125 mg PO DAILY [facility] Last Admin: 12/06/17 10:45 Dose: 0.125 mg Diltiazem HCl (Cardizem Sr) 90 mg PO BID [facility] Last Admin: 12/06/17 10:50 Dose: 90 mg Furosemide (Lasix) 40 mg PO DAILY-AC [facility] Last Admin: 12/06/17 10:45 Dose: 40 mg Guaifenesin (Robitussin Sf) 200 mg PO Q4H PRN PRN Reason: Cough Heparin Sodium (Porcine) (Heparin) 5,000 units SC TID [facility] Last Admin: 12/06/17 15:05 Dose: 5,000 units Hydralazine HCl (Apresoline) 10 mg SLOW IVP Q4H PRN PRN Reason: BP >160/100 Last Admin: 12/03/17 05:19 Dose: 10 mg Levofloxacin 750 mg/ Device 150 mls @ 100 mls/hr IVPB Q2D [facility] Last Admin: 12/06/17 15:04 Dose: 150 mls Nitroglycerin (Nitrostat) 0.4 mg SL Q5MIN PRN PRN Reason: Chest Pain Non-Formulary Medication (Roflumilast [Daliresp]) 500 mcg PO DAILY [facility] Ondansetron HCl (Zofran) 4 mg IVP Q6H PRN PRN Reason: Nausea/Vomiting Potassium Chloride (K-Dur) 20 meq PO DAILY [facility] Last Admin: 12/06/17 10:45 Dose: 20 meq Senna/Docusate Sodium (Senokot S) 2 tab PO BID PRN PRN Reason: Constipation
[2017-12-07 04:11] LABS: Albumin 3.2 g/dL (3.4-4.8); BUN (Urea Nitrogen) 36 mg/dL (9.8-20.1); BUN/Creatinine Ratio 33.33; Calc. Creatinine Clearance 54 mL/min (70-130); Calcium 9.2 mg/dL (7.8-10.44); Carbon Dioxide Greater than 37 mmol/L (23-31); Chloride 89 mmol/L (98-107); Estimated GFR-MDRD 50; Glucose 119 mg/dL (83-110); Phosphorus 3.7 mg/dL (2.3-4.7); Potassium 4.1 mmol/L (3.5-5.1); Sodium 138 mmol/L (136-145)
[2017-12-07] MEDS: Digoxin 0.125 MG TAB PO SCH (09:50)
[2017-12-07] MEDS: Anastrozole 1 MG TAB PO SCH (09:50)
[2017-12-07] MEDS: Heparin 5,000 UNITS/ML VIAL SC SCH ×3 (09:50→20:51)
[2017-12-07] MEDS: Potassium Chloride 20 MEQ TAB PO SCH (09:50)
[2017-12-07] MEDS: Furosemide 40 MG TAB PO SCH (09:50)
[2017-12-07] MEDS: Diltiazem HCl SR 90 mg Capsule PO SCH (14:45)
--- NOTE | 2017-12-07 15:40 | PRG ---
DATE OF SERVICE: 12/07/2017 SERVICE: Pulmonary Medicine. INTERVAL HISTORY: The patient is doing outstanding from a respiratory standpoint. She denies any current chest pain, fevers, chills, nausea or vomiting. She is breathing fairly well this morning. She is quite fatigued. She has been working with Physical Therapy yesterday and actually stood up today. Otherwise, there has been no interval change to her condition. PHYSICAL EXAMINATION: VITAL SIGNS: Afebrile, pulse 70, blood pressure 125/75, respirations 20, saturation 99% on 4 liters nasal cannula. GENERAL: The patient is awake and alert, in no apparent distress. LUNGS: Decent air entry. Dependent crackles are present. No prolonged expiratory phase or wheezing is appreciated. HEART: Normal rate, regular. ABDOMEN: Soft, nontender, nondistended. Bowel sounds are positive. MUSCULOSKELETAL: No cyanosis or clubbing. There is no pitting in the bilateral lower extremities. NEUROLOGIC: Grossly nonfocal. LABORATORY DATA: Basic metabolic profile is essentially unremarkable/stable. Creatinine is trending back upward to 0.108. Phosphorus 3.7. Coag negative Staph is growing 1/2. Biopsy results are consistent with metastatic adenocarcinoma with breast primary. ASSESSMENT: 1. Acute on chronic hypoxic and hypercapnic respiratory failure. 2. Chronic obstructive pulmonary disease with acute exacerbation, resolving. 3. Acute on chronic diastolic and valvular heart failure. 4. Community-acquired pneumonia, unlikely. 5. Pulmonary mass and rib lesion (rib lesion, status post biopsy consistent with metastatic breast cancer). 6. Metastatic breast cancer, stage IV. DISCUSSION AND PLAN: The patient is doing fine from a respiratory standpoint. I did relay the news to her that we are dealing with a metastatic breast process. She will be expecting an Oncology opinion to come by at some point today or tomorrow. Her primary oncologist is Dr. Bosch. I have updated her daughter based on the patient's request. I will give the patient laboratory holiday tomorrow morning. Pulmonary and Critical Care will certainly continue to follow. She is set up for home ventilator as she did like BiPAP while she was in the hospital this time around. MAHIN
[2017-12-07] MEDS: Diltiazem HCl SR 60 mg Capsule PO SCH ×2 (16:08→20:51)
--- NOTE | 2017-12-07 20:05 | CON ---
DATE OF CONSULTATION: 12/07/2017 REASON FOR CONSULTATION: Metastatic breast cancer. HISTORY OF PRESENT ILLNESS: Ms. Chavez is a very pleasant 72-year-old female with severe COPD and bill st cancer who presented to the emergency room with lethargy. She was hypoxic and placed on BiPAP. C T angio was performed which was negative for PE; however, showed a mass in her left upper lobe. Biop sy returned metastatic adenocarcinoma. Biopsy returned adenocarcinoma consistent with breast cancer. The patient was originally diagnosed with a T2 n1 M0 invasive ductal carcinoma of the right breast in 2015. She underwent a lumpectomy, but refused adjuvant radiation. She was not a good candidate f or chemotherapy due to her severe COPD at that time, so she started anastrozole as she was ER positiv e 25%. She has been followed by Dr. Bosch, last seen in August. She currently remains on BiPAP for respiratory failure and hypoxia, no complaints of pain at this time. PAST MEDICAL HISTORY: 1. Invasive ductal carcinoma of the right breast, on anastrozole. 2. Severe chronic obstructive pulmonary disease. 3. Congestive heart failure. 4. Osteoporosis. 5. Hypertension. PAST SURGICAL HISTORY: Right lumpectomy 2016, tonsillectomy. ALLERGIES: CODEINE, ERYTHROMYCIN, and apparently some anticoagulation. HOME MEDICATIONS: 1. Anastrozole 1 mg daily. 2. Aspirin 81 mg daily. 3. Plavix 75 mg daily. 4. Lanoxin 0.125 mg daily. 5. Diltiazem ER 90 mg b.i.d. 6. Advair b.i.d. 7. Lasix 40 mg daily. 8. Glucophage 500 mg b.i.d. 9. Potassium daily. 10. Roflumilast daily. FAMILY HISTORY: Mother had breast cancer. SOCIAL HISTORY: Single, has 4 children, lives with her daughter, [id number] smoking. No alcohol o r illicit drug use. REVIEW OF SYSTEMS: Twelve-point review of systems is negative except for shortness of breath. PHYSICAL EXAMINATION: VITAL SIGNS: Temperature is 97.6, pulse of 70, respiratory rate is 16, BP is 125/57, she is 92% on 4 0% FiO2. GENERAL: Chronically ill-appearing female in no acute distress. HEENT: Normocephalic, atraumatic. Pupils equal and reactive to light. NECK: Supple. CARDIOVASCULAR: Regular rate and rhythm. LUNGS: Diminished throughout with scattered rhonchi. ABDOMEN: Soft, nontender, bowel sounds are positive. EXTREMITIES: No clubbing, cyanosis or edema. SKIN: No rash. HEMATOLOGIC: No petechia or purpura. NEUROLOGIC: Nonfocal. PSYCHIATRIC: The patient is alert and oriented and appropriate. PERTINENT LABORATORY AND X-RAYS: Current WBCs 7.6, hemoglobin 11.2, hematocrit 36.6, platelet count is 214,000, 75% neutrophils, 10% lymphocytes. Sodium is 138, potassium 4.1, chloride 89, CO2 is grea ter than 37. BUN is 36, creatinine 1, calcium is 9.2, phosphorus 3.7, magnesium 2.3, total bilirubin is 0.45, AST 31, ALT is 21, alkaline phosphatase is 64, creatinine kinase is 42, serum total protein 8.9, albumin 3.8, globulin 5.1. Radiology per HPI. IMPRESSION: 1. Metastatic breast cancer. 2. Severe chronic obstructive pulmonary disease with respiratory failure. DISCUSSION: Pathology results were discussed with patient and her daughter. They understand that th is is likely metastatic disease from her prior breast cancer. We discussed potential treatment opti ons; however, she will see Dr. Bosch in the outpatient setting to further discuss potential treatme nt. Will run the hormone receptor current tissue. Thank you for the consult. We will follow up with her in the outpatient clinic.
--- NOTE | 2017-12-07 22:42 | PDOC.PN ---
- Subjective Encounter Start Date: 12/07/17 Encounter Start Time: 13:00 Patient seen and examined for Resp failure. No new complaints. No overnight events - Objective Resuscitation Status: Resuscitation Status FULL:Full Resuscitation MAR Reviewed: Yes Vital Signs & Weight: Vital Signs (12 hours) Temp Pulse Resp BP Pulse Ox 12/07/17 19:35 98.5 F 78 33 H 129/55 L 95 12/07/17 19:00 88 20 12/07/17 16:09 96.8 F L 69 23 H 114/56 L 95 12/07/17 12:47 16 92 L 12/07/17 11:15 97.6 F 70 20 125/57 L 99 Weight Weight 154 lb 1.6 oz I&O: 12/06/17 12/07/17 12/08/17 06:59 06:59 06:59 Intake Total 1460 2054 Balance 1460 2054 Result Diagrams: 12/06/17 05:48 12/08/17 04:25 EKG Reviewed by me: Yes (Tele Afib) Phys Exam - Physical Examination Constitutional: NAD Respiratory: no wheezing, no rhonchi Cardiovascular: RRR, no rub Gastrointestinal: soft, non-tender, positive bowel sounds Musculoskeletal: no edema Neurological: moves all 4 limbs Dx/Plan - Plan DVT proph w/SCDs IMPRESSION: 1. Acute on Chronic hypoxic/hypercapnic resp failure/COPD Exacerbation/Acute on chronic diastolic HF 2. Lung mass/Metastatic Breast Ca 3. THUY on CKD 3/ Contraction alkalosis 4. Hyponatremia/hyperkalemia - resolved 5. Elevated troponins due to demand ischemia/Par Afib - refusing anticoag 6. Other issues per previous notes PLAN: Oncology consult Cont Atbx/Nebs and other meds as below AM labs Review of Systems - Review of Systems Respiratory: negative: Cough, Dry, Shortness of Breath, Hemoptysis, SOB with Excertion, Pleuritic Pain, Sputum, Wheezing Cardiovascular: negative: chest pain, palpitations, orthopnea, paroxysmal nocturnal dyspnea, edema, light headedness, other - Medications/Allergies Allergies/Adverse Reactions: Allergies Allergy/AdvReac Type Severity Reaction Status Date / Time aspirin Allergy Verified 05/23/16 02:23 erythromycin base Allergy Verified 05/23/16 02:23 codeine AdvReac Intermediate NAUSEA/VOMI Verified 05/06/16 12:20 TING rivaroxaban [From Xarelto] AdvReac Intermediate EXCESSIVE Verified 06/25/15 12: 20 BRUISING dabigatran etexilate mesylate AdvReac EXCESSIVE Verified 06/25/15 12:20 [From Pradaxa] BRUISING warfarin sodium AdvReac EXCESSIVE Verified 06/25/15 12:19 [From Coumadin] BRUISING Medications: Current Medications Acetaminophen (Tylenol) 650 mg PO Q4H PRN PRN Reason: Headache/Fever/Mild Pain (1-3) Last Admin: 12/05/17 05:13 Dose: 650 mg Acetaminophen (Tylenol) 650 mg ND Q4H PRN PRN Reason: Headache/Fever/Mild Pain (1-3) Albuterol/Ipratropium (Duoneb) 3 ml NEB [id number] [facility] Last Admin: 12/07/17 19:00 Dose: 3 ml Albuterol/Ipratropium (Duoneb) 3 ml NEB Q6H PRN PRN Reason: SOB &/or Wheezing Anastrozole (Arimidex) 1 mg PO DAILY [facility] Last Admin: 12/07/17 09:50 Dose: 1 mg Bisacodyl (Dulcolax) 10 mg PO DAILYPRN PRN PRN Reason: Constipation Clonidine (Catapres) 0.1 mg PO Q4H PRN PRN Reason: SBP > _160___ Digoxin (Lanoxin) 0.125 mg PO DAILY [facility] Last Admin: 12/07/17 09:50 Dose: 0.125 mg Diltiazem HCl (Cardizem Sr) 60 mg PO TID [facility] Last Admin: 12/07/17 20:51 Dose: 60 mg Furosemide (Lasix) 40 mg PO DAILY-AC [facility] Last Admin: 12/07/17 09:50 Dose: 40 mg Guaifenesin (Robitussin Sf) 200 mg PO Q4H PRN PRN Reason: Cough Heparin Sodium (Porcine) (Heparin) 5,000 units SC TID [facility] Last Admin: 12/07/17 20:51 Dose: 5,000 units Hydralazine HCl (Apresoline) 10 mg SLOW IVP Q4H PRN PRN Reason: BP >160/100 Last Admin: 12/03/17 05:19 Dose: 10 mg Levofloxacin 750 mg/ Device 150 mls @ 100 mls/hr IVPB Q2D [facility] Last Admin: 12/06/17 15:04 Dose: 150 mls Nitroglycerin (Nitrostat) 0.4 mg SL Q5MIN PRN PRN Reason: Chest Pain Non-Formulary Medication (Roflumilast [Daliresp]) 500 mcg PO DAILY [facility] Ondansetron HCl (Zofran) 4 mg IVP Q6H PRN PRN Reason: Nausea/Vomiting Potassium Chloride (K-Dur) 20 meq PO DAILY [facility] Last Admin: 12/07/17 09:50 Dose: 20 meq Senna/Docusate Sodium (Senokot S) 2 tab PO BID PRN PRN Reason: Constipation
[2017-12-08 04:52] LABS: BUN (Urea Nitrogen) 35 mg/dL (9.8-20.1); BUN/Creatinine Ratio 36.84; Calc. Creatinine Clearance 60 mL/min (70-130); Calcium 8.7 mg/dL (7.8-10.44); Estimated GFR-MDRD 58; Glucose 99 mg/dL (83-110); Phosphorus 4.3 mg/dL (2.3-4.7)
[2017-12-08 05:02] LABS: Chloride 90 mmol/L (98-107); Potassium 4.4 mmol/L (3.5-5.1); Sodium 135 mmol/L (136-145)
[2017-12-08 05:04] LABS: Anion Gap 10 mmol/L (10-20); Carbon Dioxide 39 mmol/L (23-31)
[2017-12-08] MEDS: Diltiazem HCl SR 60 mg Capsule PO SCH ×3 (09:03→20:56)
[2017-12-08] MEDS: Heparin 5,000 UNITS/ML VIAL SC SCH ×3 (09:03→20:56)
[2017-12-08] MEDS: Digoxin 0.125 MG TAB PO SCH (09:03)
[2017-12-08] MEDS: Potassium Chloride 20 MEQ TAB PO SCH (09:04)
[2017-12-08] MEDS: Anastrozole 1 MG TAB PO SCH (09:04)
[2017-12-08] MEDS: Furosemide 40 MG TAB PO SCH (09:04)
[2017-12-08] MEDS: Clopidogrel Bisulfate 75 MG TAB PO SCH (09:04)
[2017-12-08] MEDS: Non-Formulary Item 1 EACH (Roflumilast [Daliresp] 500 MCG) PO SCH ×3 (11:20→15:25)
--- NOTE | 2017-12-08 13:56 | PRG ---
DATE OF SERVICE: 12/08/2017 SUBJECTIVE: With metastatic breast cancer, she is doing better, less short of breath. PHYSICAL EXAMINATION: VITAL SIGNS: Sats are on 4 liters, temperature 97, blood pressure 102/57. CHEST: Decreased breath sounds, no wheezing. CARDIAC: Normal S1 and S2. No gallops. ABDOMEN: No masses. IMPRESSION: 1. Chronic obstructive pulmonary disease with respiratory failure. 2. Metastatic breast cancer. Awaiting input from Oncology. PLAN: Palliative Care was consulted. Otherwise, continue neb treatment, PT, and supportive care.
--- NOTE | 2017-12-08 21:37 | PDOC.PN ---
- Subjective Encounter Start Date: 12/08/17 Encounter Start Time: 14:00 Patient seen and examined for Resp failure. On BIPAP on and off. No new complaints. No overnight events - Objective Resuscitation Status: Resuscitation Status FULL:Full Resuscitation MAR Reviewed: Yes Vital Signs & Weight: Vital Signs (12 hours) Temp Pulse Resp BP Pulse Ox 12/08/17 19:43 98.8 F 68 25 H 126/48 L 83 L 12/08/17 18:44 80 20 89 L 12/08/17 15:27 98.2 F 79 25 H 130/66 85 L 12/08/17 13:33 73 20 93 L 12/08/17 13:31 73 19 92 L 12/08/17 11:52 98.6 F 68 16 120/71 90 L Weight Weight 158 lb 8 oz I&O: 12/07/17 12/08/17 12/09/17 06:59 06:59 06:59 Intake Total 2054 1180 600 Balance 2054 1180 600 Result Diagrams: 12/06/17 05:48 12/08/17 04:25 EKG Reviewed by me: Yes (Tele Afib) Phys Exam - Physical Examination Constitutional: NAD Respiratory: no wheezing Scat rhonchi and rales at bases Cardiovascular: no rub, irregular Gastrointestinal: soft, non-tender, positive bowel sounds Musculoskeletal: no edema Neurological: moves all 4 limbs Dx/Plan - Plan DVT proph w/SCDs IMPRESSION: 1. Acute on Chronic hypoxic/hypercapnic resp failure/COPD Exacerbation/Acute on chronic diastolic HF 2. Lung mass/Metastatic Breast Ca 3. THUY on CKD 3/ Contraction alkalosis - improving 4. Hyponatremia/hyperkalemia - resolved 5. Elevated troponins due to demand ischemia/Par Afib - refusing anticoag 6. Severe TR/Mod /Moderate PEM/ Physical deconditioning/ Other issues per previous notes PLAN: Await Oncology input Cont Atbx/Nebs Cont other meds as below AM labs Cont PO Lasix Refusing inpt rehab Review of Systems - Review of Systems Constitutional: negative: fever, chills, sweats, weakness, malaise, other Cardiovascular: negative: chest pain, palpitations, orthopnea, paroxysmal nocturnal dyspnea, edema, light headedness, other - Medications/Allergies Allergies/Adverse Reactions: Allergies Allergy/AdvReac Type Severity Reaction Status Date / Time aspirin Allergy Verified 05/23/16 02:23 erythromycin base Allergy Verified 05/23/16 02:23 codeine AdvReac Intermediate NAUSEA/VOMI Verified 06/25/15 12:20 TING rivaroxaban [From Xarelto] AdvReac Intermediate EXCESSIVE Verified 06/25/15 12: 20 BRUISING dabigatran etexilate mesylate AdvReac EXCESSIVE Verified 06/25/15 12:20 [From Pradaxa] BRUISING warfarin sodium AdvReac EXCESSIVE Verified 06/25/15 12:19 [From Coumadin] BRUISING Medications: Current Medications Acetaminophen (Tylenol) 650 mg PO Q4H PRN PRN Reason: Headache/Fever/Mild Pain (1-3) Last Admin: 12/05/17 05:13 Dose: 650 mg Acetaminophen (Tylenol) 650 mg MD Q4H PRN PRN Reason: Headache/Fever/Mild Pain (1-3) Albuterol/Ipratropium (Duoneb) 3 ml NEB [id number] [facility] Last Admin: 12/08/17 18:44 Dose: 3 ml Albuterol/Ipratropium (Duoneb) 3 ml NEB Q6H PRN PRN Reason: SOB &/or Wheezing Anastrozole (Arimidex) 1 mg PO DAILY [facility] Last Admin: 12/08/17 09:04 Dose: 1 mg Bisacodyl (Dulcolax) 10 mg PO DAILYPRN PRN PRN Reason: Constipation Clonidine (Catapres) 0.1 mg PO Q4H PRN PRN Reason: SBP > _160___ Clopidogrel Bisulfate (Plavix) 75 mg PO DAILY [facility] Last Admin: 12/08/17 09:04 Dose: 75 mg Digoxin (Lanoxin) 0.125 mg PO DAILY [facility] Last Admin: 12/08/17 09:03 Dose: 0.125 mg Diltiazem HCl (Cardizem Sr) 60 mg PO TID [facility] Last Admin: 12/08/17 20:56 Dose: 60 mg Furosemide (Lasix) 40 mg PO DAILY-AC [facility] Last Admin: 12/08/17 09:04 Dose: 40 mg Guaifenesin (Robitussin Sf) 200 mg PO Q4H PRN PRN Reason: Cough Heparin Sodium (Porcine) (Heparin) 5,000 units SC TID [facility] Last Admin: 12/08/17 20:56 Dose: 5,000 units Hydralazine HCl (Apresoline) 10 mg SLOW IVP Q4H PRN PRN Reason: BP >160/100 Last Admin: 12/03/17 05:19 Dose: 10 mg Levofloxacin 750 mg/ Device 150 mls @ 100 mls/hr IVPB Q2D [facility] Last Admin: 12/08/17 13:47 Dose: 150 mls Nitroglycerin (Nitrostat) 0.4 mg SL Q5MIN PRN PRN Reason: Chest Pain Ondansetron HCl (Zofran) 4 mg IVP Q6H PRN PRN Reason: Nausea/Vomiting Potassium Chloride (K-Dur) 20 meq PO DAILY [facility] Last Admin: 12/08/17 09:04 Dose: 20 meq Senna/Docusate Sodium (Senokot S) 2 tab PO BID PRN PRN Reason: Constipation
[2017-12-09] MEDS: Acetaminophen 325 MG TAB PO PRN ×3 (00:20→20:56)
[2017-12-09 05:17] LABS: #Eosinphils 0.4 thou/uL (0.0-0.7); #Lymphocytes 0.7 thou/uL (1.20-3.40); #Monocytes 0.6 thou/uL (0.11-0.59); #Neutrophils 4.7 thou/uL (1.40-6.50); %Basophils 0.4 % (0.0-1.0); %Eosinophils 6.3 % (0.0-10.0); %Lymphocytes 10.4 % (21.0-51.0); %Monocytes 8.6 % (0.0-10.0); %Neutrophils 74.2 % (42.0-75.0); Hemoglobin 10.6 g/dL (12.0-16.0); Mean Corpuscular HGB CONC 30.4 g/dL (32.0-36.0); Mean Corpuscular Hemoglobin 29.2 pg (27.0-31.0); Mean Corpuscular Volume 96.1 fL (78.0-98.0); Mean Platelet Volume 7.7 fL (7.4-10.4); Platelet Count 194 thou/uL (130-400); RBC Distribution Width 14.3 % (11.5-14.5); Red Blood Cell (RBC) Count 3.62 mill/uL (4.20-5.40); White Blood Cell (WBC) Count 6.4 thou/uL (4.8-10.8)
[2017-12-09 05:29] LABS: BUN (Urea Nitrogen) 42 mg/dL (9.8-20.1); Calc. Creatinine Clearance 56 mL/min (70-130); Calcium 9.2 mg/dL (7.8-10.44); Estimated GFR-MDRD 52; Glucose 131 mg/dL (83-110)
[2017-12-09 05:38] LABS: Anion Gap 7 mmol/L (10-20); Chloride 90 mmol/L (98-107); Potassium 4.3 mmol/L (3.5-5.1); Sodium 135 mmol/L (136-145)
[2017-12-09 05:48] LABS: Carbon Dioxide 42 mmol/L (23-31)
[2017-12-09] MEDS: Clopidogrel Bisulfate 75 MG TAB PO SCH (08:04)
[2017-12-09] MEDS: Anastrozole 1 MG TAB PO SCH (08:04)
[2017-12-09] MEDS: Digoxin 0.125 MG TAB PO SCH (08:04)
[2017-12-09] MEDS: Potassium Chloride 20 MEQ TAB PO SCH (08:04)
[2017-12-09] MEDS: Heparin 5,000 UNITS/ML VIAL SC SCH ×3 (08:04→20:51)
[2017-12-09] MEDS: Diltiazem HCl SR 60 mg Capsule PO SCH ×3 (08:04→20:51)
[2017-12-09] MEDS: Furosemide 40 MG TAB PO SCH (08:04)
--- NOTE | 2017-12-09 12:29 | PRG ---
DATE OF SERVICE: 12/09/2017 SUBJECTIVE: Kathy this morning is awake, responsive, slightly lethargic. Her total bicarbonate is 42 in the blood gas suggesting marked metabolic alkalosis, probably aggravated by the diuretics. PHYSICAL EXAMINATION: VITAL SIGNS: Sats are 98% on 4 liters, pulse 123, temperature 98, blood pressure 120/53. CHEST: Decreased breath sounds, no wheezing. CARDIAC: Normal S1 and S2. No gallops. ABDOMEN: Soft. No mass. LABORATORY DATA: White count 6,000, hemoglobin and hematocrit 10 and 30, platelet count is normal. IMPRESSION: 1. Chronic obstructive pulmonary disease with respiratory failure. 2. Marked metabolic alkalosis. 3. Right-sided breast cancer. PLAN: Lasix has been discontinued. Continue supportive care. Await input from Oncology.
--- NOTE | 2017-12-09 21:48 | PDOC.PN ---
- Subjective Encounter Start Date: 12/09/17 Encounter Start Time: 13:00 Patient seen and examined for resp failure. No new complaints. No overnight events - Objective Resuscitation Status: Resuscitation Status FULL:Full Resuscitation MAR Reviewed: Yes Vital Signs & Weight: Vital Signs (12 hours) Temp Pulse Resp BP Pulse Ox 12/09/17 18:54 62 16 95 12/09/17 16:03 65 16 12/09/17 15:54 98.0 F 66 19 149/71 H 96 12/09/17 10:59 97.9 F 75 19 130/62 90 L Weight Weight 162 lb 1.6 oz I&O: 12/08/17 12/09/17 12/10/17 06:59 06:59 06:59 Intake Total 1180 1320 1000 Balance 1180 1320 1000 Result Diagrams: 12/09/17 05:05 12/09/17 05:05 EKG Reviewed by me: Yes (Tele Afib) Phys Exam - Physical Examination Constitutional: NAD Respiratory: no wheezing, no rhonchi Cardiovascular: RRR, no rub Bibasilar rhonchi Gastrointestinal: soft, non-tender, positive bowel sounds Musculoskeletal: no edema Neurological: moves all 4 limbs Dx/Plan - Plan IMPRESSION: 1. Acute on Chronic hypoxic/hypercapnic resp failure/COPD Exacerbation/Acute on chronic diastolic HF 2. Lung mass/Metastatic Breast Ca 3. THUY on CKD 3/ Contraction alkalosis - improving 4. Hyponatremia/hyperkalemia - resolved 5. Elevated troponins due to demand ischemia/Par Afib - refusing anticoag 6. Severe TR/Mod /Moderate PEM/ Physical deconditioning/ Other issues per previous notes PLAN: Await Oncology input Lasix dced per Pulmonary Will dc PO KCL AM labs Cont Atbx/Nebs Cont other meds as below AM labs Review of Systems - Review of Systems Respiratory: negative: Cough, Dry, Shortness of Breath, Hemoptysis, SOB with Excertion, Pleuritic Pain, Sputum, Wheezing Cardiovascular: negative: chest pain, palpitations, orthopnea, paroxysmal nocturnal dyspnea, edema, light headedness, other - Medications/Allergies Allergies/Adverse Reactions: Allergies Allergy/AdvReac Type Severity Reaction Status Date / Time aspirin Allergy Verified 05/23/16 02:23 erythromycin base Allergy Verified 05/23/16 02:23 codeine AdvReac Intermediate NAUSEA/VOMI Verified 06/25/15 12:20 TING rivaroxaban [From Xarelto] AdvReac Intermediate EXCESSIVE Verified 06/25/15 12: 20 BRUISING dabigatran etexilate mesylate AdvReac EXCESSIVE Verified 06/25/15 12:20 [From Pradaxa] BRUISING warfarin sodium AdvReac EXCESSIVE Verified 06/25/15 12:19 [From Coumadin] BRUISING Medications: Current Medications Acetaminophen (Tylenol) 650 mg PO Q4H PRN PRN Reason: Headache/Fever/Mild Pain (1-3) Last Admin: 12/09/17 20:56 Dose: 650 mg Acetaminophen (Tylenol) 650 mg IN Q4H PRN PRN Reason: Headache/Fever/Mild Pain (1-3) Albuterol/Ipratropium (Duoneb) 3 ml NEB [id number] [facility] Last Admin: 12/09/17 18:54 Dose: 3 ml Albuterol/Ipratropium (Duoneb) 3 ml NEB Q6H PRN PRN Reason: SOB &/or Wheezing Anastrozole (Arimidex) 1 mg PO DAILY [facility] Last Admin: 12/09/17 08:04 Dose: 1 mg Bisacodyl (Dulcolax) 10 mg PO DAILYPRN PRN PRN Reason: Constipation Clonidine (Catapres) 0.1 mg PO Q4H PRN PRN Reason: SBP > _160___ Clopidogrel Bisulfate (Plavix) 75 mg PO DAILY [facility] Last Admin: 12/09/17 08:04 Dose: 75 mg Digoxin (Lanoxin) 0.125 mg PO DAILY [facility] Last Admin: 12/09/17 08:04 Dose: 0.125 mg Diltiazem HCl (Cardizem Sr) 60 mg PO TID [facility] Last Admin: 12/09/17 20:51 Dose: 60 mg Guaifenesin (Robitussin Sf) 200 mg PO Q4H PRN PRN Reason: Cough Heparin Sodium (Porcine) (Heparin) 5,000 units SC TID [facility] Last Admin: 12/09/17 20:51 Dose: 5,000 units Hydralazine HCl (Apresoline) 10 mg SLOW IVP Q4H PRN PRN Reason: BP >160/100 Last Admin: 12/03/17 05:19 Dose: 10 mg Levofloxacin 750 mg/ Device 150 mls @ 100 mls/hr IVPB Q2D [facility] Last Admin: 12/08/17 13:47 Dose: 150 mls Nitroglycerin (Nitrostat) 0.4 mg SL Q5MIN PRN PRN Reason: Chest Pain Ondansetron HCl (Zofran) 4 mg IVP Q6H PRN PRN Reason: Nausea/Vomiting Senna/Docusate Sodium (Senokot S) 2 tab PO BID PRN PRN Reason: Constipation
[2017-12-10 04:51] LABS: #Eosinphils 0.5 thou/uL (0.0-0.7); #Lymphocytes 0.6 thou/uL (1.20-3.40); #Monocytes 0.8 thou/uL (0.11-0.59); #Neutrophils 6.2 thou/uL (1.40-6.50); %Basophils 0.3 % (0.0-1.0); %Eosinophils 5.7 % (0.0-10.0); %Lymphocytes 7.5 % (21.0-51.0); %Monocytes 9.4 % (0.0-10.0); %Neutrophils 77.2 % (42.0-75.0); Hemoglobin 9.9 g/dL (12.0-16.0); Mean Corpuscular HGB CONC 31.2 g/dL (32.0-36.0); Mean Corpuscular Hemoglobin 30.1 pg (27.0-31.0); Mean Corpuscular Volume 96.4 fL (78.0-98.0); Platelet Count 199 thou/uL (130-400); RBC Distribution Width 14.4 % (11.5-14.5); Red Blood Cell (RBC) Count 3.27 mill/uL (4.20-5.40); White Blood Cell (WBC) Count 8.1 thou/uL (4.8-10.8)
[2017-12-10 05:03] LABS: BUN (Urea Nitrogen) 42 mg/dL (9.8-20.1); Calc. Creatinine Clearance 49 mL/min (70-130); Calcium 9.2 mg/dL (7.8-10.44); Estimated GFR-MDRD 43; Glucose 99 mg/dL (83-110)
[2017-12-10 05:12] LABS: Anion Gap 6 mmol/L (10-20); Chloride 91 mmol/L (98-107); Potassium 4.5 mmol/L (3.5-5.1); Sodium 138 mmol/L (136-145)
[2017-12-10 05:14] LABS: Carbon Dioxide 46 mmol/L (23-31)
[2017-12-10] MEDS: Clopidogrel Bisulfate 75 MG TAB PO SCH (08:58)
[2017-12-10] MEDS: Anastrozole 1 MG TAB PO SCH (08:58)
[2017-12-10] MEDS: Digoxin 0.125 MG TAB PO SCH (08:58)
[2017-12-10] MEDS: Heparin 5,000 UNITS/ML VIAL SC SCH ×3 (08:59→20:23)
[2017-12-10] MEDS: Diltiazem HCl SR 60 mg Capsule PO SCH ×3 (08:59→20:23)
--- NOTE | 2017-12-10 09:36 | PDOC.PN ---
- Subjective Encounter Start Date: 12/10/17 Encounter Start Time: 09:35 Subjective: feels very weak but no SOB at rest -: discussed DC plan & wants me to talk to daughter.advised SNIF placement but -: pt deferred decision to daughter - Objective Resuscitation Status: Resuscitation Status FULL:Full Resuscitation MAR Reviewed: Yes Vital Signs & Weight: Vital Signs (12 hours) Temp Pulse Resp BP Pulse Ox 12/10/17 08:58 76 12/10/17 08:46 90 L 12/10/17 08:44 82 16 90 L 12/10/17 08:00 90 L 12/10/17 07:32 98.4 F 67 19 128/55 L 90 L 12/10/17 04:00 97.7 F 65 14 143/65 H 85 L 12/10/17 00:07 58 L 16 93 L 12/10/17 00:00 97.7 F 66 18 123/54 L 93 L Weight Weight 159 lb 4.8 oz I&O: 12/09/17 12/10/17 12/11/17 06:59 06:59 06:59 Intake Total 1320 1480 Output Total 525 Balance 1320 955 Result Diagrams: 12/10/17 04:40 12/10/17 04:40 Phys Exam - Physical Examination weak looking.sleepy.barely awake for few seconds HEENT: PERRLA, sclera anicteric, oral pharynx no lesions mucosa slightly dry Neck: no nodes, no JVD, supple, full ROM Respiratory: no wheezing, no rales, no rhonchi Cardiovascular: RRR, no significant murmur Gastrointestinal: soft, non-tender, no distention, positive bowel sounds Musculoskeletal: no edema, pulses present Neurological: non-focal, normal sensation, moves all 4 limbs Psychiatric: normal affect, A&O x 3 Skin: no rash Dx/Plan (1) Acute respiratory failure with hypoxia and hypercapnia Code(s): J96.01 - ACUTE RESPIRATORY FAILURE WITH HYPOXIA; J96.02 - ACUTE RESPIRATORY FAILURE WITH HYPERCAPNIA Status: Acute Comment: off of Bipap. (2) COPD with exacerbation Code(s): J44.1 - CHRONIC OBSTRUCTIVE PULMONARY DISEASE W (ACUTE) EXACERBATION Status: Acute (3) Metabolic alkalosis Code(s): E87.3 - ALKALOSIS Status: Acute (4) THUY (acute kidney injury) Code(s): N17.9 - ACUTE KIDNEY FAILURE, UNSPECIFIED Status: Acute (5) Atrial fibrillation Code(s): I48.91 - UNSPECIFIED ATRIAL FIBRILLATION Status: Chronic Qualifiers: Atrial fibrillation type: chronic Qualified Code(s): I48.2 - Chronic atrial fibrillation (6) DM2 (diabetes mellitus, type 2) Status: Chronic Qualifiers: Diabetes mellitus penitentiary insulin use: without penitentiary use Diabetes mellitus complication status: with kidney complications Diabetes mellitus complication detail: with chronic kidney disease Chronic kidney disease stage : stage 2 (mild) Qualified Code(s): E11.22 - Type 2 diabetes mellitus with diabetic chronic kidney disease; N18.2 - Chronic kidney disease, stage 2 (mild) (7) HTN (hypertension) Code(s): I10 - ESSENTIAL (PRIMARY) HYPERTENSION Status: Chronic Qualifiers: Hypertension type: essential hypertension Qualified Code(s): I10 - Essential (primary) hypertension (8) Acute on chronic diastolic (congestive) heart failure Code(s): I50.33 - ACUTE ON CHRONIC DIASTOLIC (CONGESTIVE) HEART FAILURE Status : Resolved (9) breast cancer with metastasis Status: Acute (10) History of CHF (congestive heart failure) Code(s): Z86.79 - PERSONAL HISTORY OF OTHER DISEASES OF THE CIRCULATORY SYSTEM Status: Chronic (11) Hyperkalemia Code(s): E87.5 - HYPERKALEMIA Status: Resolved - Plan PT/OT, respiratory therapy, incentive spirometry, out of bed/ambulate, DVT proph w/SCDs Care discussed w Daughter Ms Curran over phone.Pt refused to go to Rehab he -: Daughter feels that she is not capable to take care of mom. -: encouraged to talk to pt again as i feel she will be re admitted if sent ho -: Check am labs for worsening alkalosis and THUY.? Hypovolemia.diuretics off -: cont supportive care .nebs prn.O2,Biapa set up done for home * . IMPRESSION: 1. Acute on Chronic hypoxic/hypercapnic resp failure/COPD Exacerbation/Acute on chronic diastolic HF 2. Lung mass/Metastatic Breast Ca 3. THUY on CKD 3/ Contraction alkalosis - improving 4. Hyponatremia/hyperkalemia - resolved 5. Elevated troponins due to demand ischemia/Par Afib - refusing anticoag 6. Severe TR/Mod /Moderate PEM/ Physical deconditioning/ Other issues per previous notes PLAN: Await Oncology input Lasix dced per Pulmonary Will dc PO KCL AM labs Cont Atbx/Nebs Cont other meds as below AM labs Review of Systems - Review of Systems Constitutional: weakness, malaise Respiratory: SOB with Excertion Other: limited ROS due to somnolence - Medications/Allergies Allergies/Adverse Reactions: Allergies Allergy/AdvReac Type Severity Reaction Status Date / Time aspirin Allergy Verified 05/23/16 02:23 erythromycin base Allergy Verified 05/23/16 02:23 codeine AdvReac Intermediate NAUSEA/VOMI Verified 06/25/15 12:20 TING rivaroxaban [From Xarelto] AdvReac Intermediate EXCESSIVE Verified 06/25/15 12: 20 BRUISING dabigatran etexilate mesylate AdvReac EXCESSIVE Verified 06/25/15 12:20 [From Pradaxa] BRUISING warfarin sodium AdvReac EXCESSIVE Verified 06/25/15 12:19 [From Coumadin] BRUISING Medications: Current Medications Acetaminophen (Tylenol) 650 mg PO Q4H PRN PRN Reason: Headache/Fever/Mild Pain (1-3) Last Admin: 12/09/17 20:56 Dose: 650 mg Acetaminophen (Tylenol) 650 mg MA Q4H PRN PRN Reason: Headache/Fever/Mild Pain (1-3) Albuterol/Ipratropium (Duoneb) 3 ml NEB [id number] [facility] Last Admin: 12/10/17 08:44 Dose: 3 ml Albuterol/Ipratropium (Duoneb) 3 ml NEB Q6H PRN PRN Reason: SOB &/or Wheezing Anastrozole (Arimidex) 1 mg PO DAILY [facility] Last Admin: 12/10/17 08:58 Dose: 1 mg Bisacodyl (Dulcolax) 10 mg PO DAILYPRN PRN PRN Reason: Constipation Clonidine (Catapres) 0.1 mg PO Q4H PRN PRN Reason: SBP > _160___ Clopidogrel Bisulfate (Plavix) 75 mg PO DAILY [facility] Last Admin: 12/10/17 08:58 Dose: 75 mg Digoxin (Lanoxin) 0.125 mg PO DAILY [facility] Last Admin: 12/10/17 08:58 Dose: 0.125 mg Diltiazem HCl (Cardizem Sr) 60 mg PO TID [facility] Last Admin: 12/10/17 08:59 Dose: 60 mg Guaifenesin (Robitussin Sf) 200 mg PO Q4H PRN PRN Reason: Cough Heparin Sodium (Porcine) (Heparin) 5,000 units SC TID [facility] Last Admin: 12/10/17 08:59 Dose: 5,000 units Hydralazine HCl (Apresoline) 10 mg SLOW IVP Q4H PRN PRN Reason: BP >160/100 Last Admin: 12/03/17 05:19 Dose: 10 mg Levofloxacin 750 mg/ Device 150 mls @ 100 mls/hr IVPB Q2D [facility] Last Admin: 12/08/17 13:47 Dose: 150 mls Nitroglycerin (Nitrostat) 0.4 mg SL Q5MIN PRN PRN Reason: Chest Pain Ondansetron HCl (Zofran) 4 mg IVP Q6H PRN PRN Reason: Nausea/Vomiting Senna/Docusate Sodium (Senokot S) 2 tab PO BID PRN PRN Reason: Constipation
--- NOTE | 2017-12-10 14:21 | PRG ---
DATE OF SERVICE: 12/10/2017 SERVICE: Pulmonary Medicine. INTERVAL HISTORY: The patient is doing great from a respiratory standpoint. Denies any current ches t pain, fevers, chills, nausea, or vomiting. Her breathing is much improved, but she continues to be quite weak. She has been able to walk with physical therapy on 2 or 3 separate occasions, but she n eeds some assistance in getting out of bed and standing. We talked about options moving forward. I did discuss with her that I think it would be in her best interest to go to a long-term facilit y to get stronger before transitioning home. I do not think she will do well in that environment. PHYSICAL EXAMINATION: VITAL SIGNS: Afebrile, pulse 71, blood pressure 127/72, respirations 20, saturation 97% on 4 liters nasal cannula. GENERAL: The patient is awake, alert, in no apparent distress. LUNGS: Reduced air entry. There is a prolonged expiratory phase. I do not hear any wheezing, rhonc hi, or crackles today. HEART: Normal rate, regular. ABDOMEN: Soft, nontender, nondistended. Bowel sounds are positive. MUSCULOSKELETAL: No cyanosis or clubbing. There is trace pitting in the bilateral lower extremities with chronic stasis changes. NEUROLOGIC: Grossly nonfocal. LABORATORY DATA: WBC 8.1, hemoglobin 9.9, platelets 199,000. Bicarbonate 46. Basic metabolic profi le is, otherwise, unremarkable. Creatinine 1.22 and gently up-trending. IMAGING: Ejection fraction is normal. There is a small pleural effusion. There is diastolic heart dysfunction. Moderate aortic stenosis is noted. Pulmonary regurgitation is identified. Left atrium is severely dilated. ASSESSMENT: 1. Acute on chronic hypoxic and hypercapnic respiratory failure. 2. Chronic obstructive pulmonary disease with acute exacerbation, resolved. 3. Acute on chronic diastolic and valvular heart failure. 4. Pulmonary mass and rib lesion, biopsy proven to represent metastatic breast cancer. 5. Deconditioning. DISCUSSION AND PLAN: The patient is stable for transition out of the hospital. She has completed he r steroid and antibiotic course. From my perspective, she can transition to the next location. That being said, we need to come up with a plan with Oncology. I believe the patient is too weak to thri ve at home and would recommend that she go to a long-term facility for a couple of weeks to reg ain strength before that transition occurs. Ultimately, however, it will be up to the family to decmina prieto on this. As long as she remains in the hospital, I will continue to follow.
[2017-12-11] MEDS: Anastrozole 1 MG TAB PO SCH (09:23)
[2017-12-11] MEDS: Digoxin 0.125 MG TAB PO SCH (09:23)
[2017-12-11] MEDS: Clopidogrel Bisulfate 75 MG TAB PO SCH (09:23)
[2017-12-11] MEDS: Heparin 5,000 UNITS/ML VIAL SC SCH ×3 (09:24→20:53)
[2017-12-11] MEDS: Diltiazem HCl SR 60 mg Capsule PO SCH ×3 (09:26→20:53)
--- NOTE | 2017-12-11 10:53 | PRG ---
DATE OF SERVICE: 12/11/2017 SERVICE: Pulmonary Medicine. INTERVAL HISTORY: The patient is doing great from a respiratory standpoint. She is sleeping comfort ably on BiPAP. I will correct very comfortably. She had no conversational dyspnea. Otherwise, ther e has been no interval change to her condition. She has decided to proceed with moving to a alf facility before transitioning home. PHYSICAL EXAMINATION: VITAL SIGNS: Afebrile, pulse 72, blood pressure 157/66, respirations 22, saturation 95% on 4 liters nasal cannula. GENERAL: The patient is awake, alert, no apparent distress. LUNGS: There is reduced air entry with a prolonged expiratory phase. No wheezing is present. There are no crackles or rhonchi today. HEART: Normal rate, regular. ABDOMEN: Soft, nontender, nondistended. Bowel sounds are positive. MUSCULOSKELETAL: No cyanosis or clubbing. Trace 1+ pitting is present with chronic stasis changes i n the bilateral lower extremities. NEUROLOGIC: Grossly nonfocal. : No [place]. LABORATORY DATA: WBC 8.1, hemoglobin 9.9 and platelets 199,000. Bicarbonate 46. Creatinine up tren ding to 1.22. ASSESSMENT: 1. Acute on chronic hypoxic and hypercapnic respiratory failure. 2. Chronic obstructive pulmonary disease with acute exacerbation, resolved. 3. Acute on chronic diastolic and valvular heart failure. 4. Breast cancer, widely metastatic. 5. Deconditioning. DISCUSSION AND PLAN: The patient is stable for transition out of the hospital. If she is still here by tomorrow morning, we will repeat some electrolytes including base met, magnesium, and phosphorus. She has completed her antibiotics and steroids. On discharge from the hospital, she will be set up with a volume ventilation device. If she goes to alf facility, I would like for her to continue using the BiPAP as needed during the day and at night. She will follow up with me in the ou tpatient setting.
--- NOTE | 2017-12-11 15:39 | PDOC.PN ---
- Subjective Encounter Start Date: 12/11/17 Encounter Start Time: 15:37 Subjective: was hypoxic so started on bipap -: sleepy butwakes up easily & reports that she feels fine - Objective Resuscitation Status: Resuscitation Status FULL:Full Resuscitation MAR Reviewed: Yes Vital Signs & Weight: Vital Signs (12 hours) Temp Pulse Resp BP Pulse Ox 12/11/17 13:34 60 23 H 12/11/17 12:00 86 L 12/11/17 11:10 97.0 F L 80 26 H 154/75 H 87 L 12/11/17 10:17 61 22 H 88 L 12/11/17 08:16 72 32 H 95 12/11/17 07:25 97.3 F L 68 24 H 157/66 H 82 L 12/11/17 06:57 74 16 12/11/17 04:00 97.6 F 67 20 147/71 H 92 L Weight Weight 156 lb 3.2 oz I&O: 12/10/17 12/11/17 12/12/17 06:59 06:59 06:59 Intake Total 1480 1490 Output Total 525 Balance 955 1490 Result Diagrams: 12/10/17 04:40 12/10/17 04:40 Phys Exam - Physical Examination Constitutional: NAD slumped in bed,somnolent,lethargic HEENT: PERRLA, moist MMs, sclera anicteric, oral pharynx no lesions Neck: no nodes, no JVD, supple, full ROM Respiratory: no wheezing, no rales, no rhonchi, clear to auscultation bilateral Cardiovascular: RRR, no significant murmur, no rub Gastrointestinal: soft, non-tender, no distention, positive bowel sounds Musculoskeletal: no edema, pulses present Neurological: non-focal, normal sensation, moves all 4 limbs Psychiatric: normal affect, A&O x 3 Skin: no rash Dx/Plan (1) Acute respiratory failure with hypoxia and hypercapnia Code(s): J96.01 - ACUTE RESPIRATORY FAILURE WITH HYPOXIA; J96.02 - ACUTE RESPIRATORY FAILURE WITH HYPERCAPNIA Status: Acute Comment: off of Bipap. (2) COPD with exacerbation Code(s): J44.1 - CHRONIC OBSTRUCTIVE PULMONARY DISEASE W (ACUTE) EXACERBATION Status: Acute (3) Metabolic alkalosis Code(s): E87.3 - ALKALOSIS Status: Acute Comment: suspect volume depletion. (4) THUY (acute kidney injury) Code(s): N17.9 - ACUTE KIDNEY FAILURE, UNSPECIFIED Status: Acute (5) Atrial fibrillation Code(s): I48.91 - UNSPECIFIED ATRIAL FIBRILLATION Status: Chronic Qualifiers: Atrial fibrillation type: chronic Qualified Code(s): I48.2 - Chronic atrial fibrillation (6) DM2 (diabetes mellitus, type 2) Status: Chronic Qualifiers: Diabetes mellitus fdc insulin use: without terminal operations manager use Diabetes mellitus complication status: with kidney complications Diabetes mellitus complication detail: with chronic kidney disease Chronic kidney disease stage : stage 2 (mild) Qualified Code(s): E11.22 - Type 2 diabetes mellitus with diabetic chronic kidney disease; N18.2 - Chronic kidney disease, stage 2 (mild) (7) HTN (hypertension) Code(s): I10 - ESSENTIAL (PRIMARY) HYPERTENSION Status: Chronic Qualifiers: Hypertension type: essential hypertension Qualified Code(s): I10 - Essential (primary) hypertension (8) Acute on chronic diastolic (congestive) heart failure Code(s): I50.33 - ACUTE ON CHRONIC DIASTOLIC (CONGESTIVE) HEART FAILURE Status : Resolved (9) breast cancer with metastasis Status: Acute (10) History of CHF (congestive heart failure) Code(s): Z86.79 - PERSONAL HISTORY OF OTHER DISEASES OF THE CIRCULATORY SYSTEM Status: Chronic (11) Hyperkalemia Code(s): E87.5 - HYPERKALEMIA Status: Resolved - Plan PT/OT, respiratory therapy, incentive spirometry, out of bed/ambulate, DVT proph w/SCDs family & pt agreeable for SNIF.Dc when stable -: Biapa prn and hs. -: cont rest as below -: not stable for Dc today given somnolence.will try tomorrow -: am labs * . Review of Systems - Review of Systems Constitutional: weakness, malaise. negative: fever, chills, sweats, other Respiratory: Shortness of Breath, SOB with Excertion. negative: Cough, Dry, Hemoptysis, Pleuritic Pain, Sputum, Wheezing Cardiovascular: negative: chest pain, palpitations, orthopnea, paroxysmal nocturnal dyspnea, edema, light headedness, other Gastrointestinal: negative: Nausea, Vomiting, Abdominal Pain, Diarrhea, Constipation, Melena, Hematochezia, Other Genitourinary: negative: Dysuria, Frequency, Incontinence, Hematuria, Retention , Other Musculoskeletal: negative: Neck Pain, Shoulder Pain, Arm Pain, Back Pain, Hand Pain, Leg Pain, Foot Pain, Other Neurological: negative: Weakness, Numbness, Incoordination, Change in Speech, Confusion, Seizures, Other - Medications/Allergies Allergies/Adverse Reactions: Allergies Allergy/AdvReac Type Severity Reaction Status Date / Time aspirin Allergy Verified 05/23/16 02:23 erythromycin base Allergy Verified 05/23/16 02:23 codeine AdvReac Intermediate NAUSEA/VOMI Verified 06/25/15 12:20 TING rivaroxaban [From Xarelto] AdvReac Intermediate EXCESSIVE Verified 06/25/15 12: 20 BRUISING dabigatran etexilate mesylate AdvReac EXCESSIVE Verified 06/25/15 12:20 [From Pradaxa] BRUISING warfarin sodium AdvReac EXCESSIVE Verified 06/25/15 12:19 [From Coumadin] BRUISING Medications: Current Medications Acetaminophen (Tylenol) 650 mg PO Q4H PRN PRN Reason: Headache/Fever/Mild Pain (1-3) Last Admin: 12/09/17 20:56 Dose: 650 mg Acetaminophen (Tylenol) 650 mg RI Q4H PRN PRN Reason: Headache/Fever/Mild Pain (1-3) Albuterol/Ipratropium (Duoneb) 3 ml NEB [id number] [facility] Last Admin: 12/11/17 13:34 Dose: 3 ml Albuterol/Ipratropium (Duoneb) 3 ml NEB Q6H PRN PRN Reason: SOB &/or Wheezing Anastrozole (Arimidex) 1 mg PO DAILY [facility] Last Admin: 12/11/17 09:23 Dose: 1 mg Bisacodyl (Dulcolax) 10 mg PO DAILYPRN PRN PRN Reason: Constipation Clonidine (Catapres) 0.1 mg PO Q4H PRN PRN Reason: SBP > _160___ Clopidogrel Bisulfate (Plavix) 75 mg PO DAILY [facility] Last Admin: 12/11/17 09:23 Dose: 75 mg Digoxin (Lanoxin) 0.125 mg PO DAILY [facility] Last Admin: 12/11/17 09:23 Dose: 0.125 mg Diltiazem HCl (Cardizem Sr) 60 mg PO TID [facility] Last Admin: 12/11/17 09:26 Dose: 60 mg Guaifenesin (Robitussin Sf) 200 mg PO Q4H PRN PRN Reason: Cough Heparin Sodium (Porcine) (Heparin) 5,000 units SC TID [facility] Last Admin: 12/11/17 09:24 Dose: 5,000 units Hydralazine HCl (Apresoline) 10 mg SLOW IVP Q4H PRN PRN Reason: BP >160/100 Last Admin: 12/03/17 05:19 Dose: 10 mg Nitroglycerin (Nitrostat) 0.4 mg SL Q5MIN PRN PRN Reason: Chest Pain Ondansetron HCl (Zofran) 4 mg IVP Q6H PRN PRN Reason: Nausea/Vomiting Senna/Docusate Sodium (Senokot S) 2 tab PO BID PRN PRN Reason: Constipation
--- NOTE | 2017-12-11 22:06 | RAD ---
PORTABLE AP CHEST X-RAY 12/11/17 HISTORY: Possible aspiration. COMPARISON: 12/02/17. FINDINGS: The cardiac silhouette remains enlarged. Again noted are increased interstitial opacities bilaterally , greater in the right upper lung zone which is stable from prior exam. Mass-like opacity in the left upper lobe is again present. There are pleural and parenchymal changes of the left lung base which m ay represent left pleural effusion and atelectasis although pneumonia at the left lung base versus as piration cannot be excluded. Vascular calcifications seen in the thoracic aorta. There is osteopenia present. No other interval change. IMPRESSION: 1. Stable cardiomegaly. 2. Stable interstitial opacities bilaterally, greater in the right upper lung zone. These findin gs could be related to related to chronic lung changes or interstitial edema. 3. Pleural and parenchymal changes left lung base which may represent left pleural effusion and atelectasis. However, parenchymal changes left lung base could potentially be related to either pneum onia or aspiration pneumonitis. 4. Stable ill-defined mass-like density in the left upper lobe. POS: [facility]
[2017-12-11] MEDS ORDERED: Acetaminophen 1,000 MG in Premix Bag 1 BAG IVPB PRN (23:51)
[2017-12-12 06:19] LABS: BUN (Urea Nitrogen) 39 mg/dL (9.8-20.1); Calc. Creatinine Clearance 68 mL/min (70-130); Calcium 10.2 mg/dL (7.8-10.44); Estimated GFR-MDRD 65; Glucose 81 mg/dL (83-110); Phosphorus 3.7 mg/dL (2.3-4.7)
[2017-12-12 06:28] LABS: Anion Gap 11 mmol/L (10-20); Chloride 91 mmol/L (98-107); Potassium 4.9 mmol/L (3.5-5.1); Sodium 139 mmol/L (136-145)
[2017-12-12 06:31] LABS: Carbon Dioxide 42 mmol/L (23-31)
--- NOTE | 2017-12-12 10:26 | PRG ---
DATE OF SERVICE: 12/12/2017 SERVICE: Pulmonary Medicine INTERVAL HISTORY: The patient is doing okay right now from a respiratory standpoint. She is on 35% Ventimask. Her sats are in the mid 80s. She is breathing comfortably and has no conversational dysp luiz. She has minimal accessory muscle use. Last night; however, she had an aspiration event associa mick with taking some pills and medication. She was coughing and choking and required significant omi unts of BiPAP support. She is currently n.p.o. awaiting a speech evaluation. Otherwise, there has b een no interval change to her condition. PHYSICAL EXAMINATION: VITAL SIGNS: Afebrile, pulse 67, blood pressure 161/84, respirations 22, saturation 95% on 35% FiO2. GENERAL: The patient is awake and alert, in no apparent distress. LUNGS: Decent air entry. Rhonchi. There is a prolonged expiratory phase with the expiratory wheezi ng. Dependent crackles are also noted. HEART: Normal rate, regular. ABDOMEN: Soft, nontender, nondistended. Bowel sounds are positive. MUSCULOSKELETAL: No cyanosis or clubbing. There is trace pitting in the bilateral lower extremities with chronic stasis changes. NEUROLOGIC: Grossly nonfocal. LABORATORY DATA: Basic metabolic profile is significant unremarkable magnesium, phosphorus and potas sium. Her bicarbonate has improved to 42. IMAGING: Chest x-ray demonstrates left pleural parenchymal abnormality. Otherwise it is stable. ASSESSMENT: 1. Acute on chronic hypoxic and hypercapnic respiratory failure. 2. Chronic obstructive pulmonary disease with acute exacerbation, resolved. 3. Acute on chronic diastolic and valvular heart failure. 4. Breast cancer, metastatic. 5. Deconditioning, severe. DISCUSSION AND PLAN: We will continue our mobilization efforts. We will wean oxygen through time as tolerated. Hopefully, we will be able to have her back on nasal cannula by the end of the day. We will restart our diuretics as the patient's contraction alkalosis is significantly improved. Pulmona ry Critical Care will continue to follow along. I would hold off on her discharge from the hospital at this time.
[2017-12-12] MEDS: Anastrozole 1 MG TAB PO SCH (10:42)
[2017-12-12] MEDS: Clopidogrel Bisulfate 75 MG TAB PO SCH (10:42)
[2017-12-12] MEDS: Diltiazem HCl SR 60 mg Capsule PO SCH ×3 (10:42→21:10)
[2017-12-12] MEDS: Digoxin 0.125 MG TAB PO SCH (10:42)
[2017-12-12] MEDS: Heparin 5,000 UNITS/ML VIAL SC SCH ×3 (10:42→21:10)
--- NOTE | 2017-12-12 13:39 | PDOC.PN ---
- Subjective Encounter Start Date: 12/12/17 Encounter Start Time: 13:35 Subjective: upset when i ask her about breathing,says she is fine -: hypoxic episodes on and off w Q of aspiration last night - Objective Resuscitation Status: Resuscitation Status FULL:Full Resuscitation MAR Reviewed: Yes Vital Signs & Weight: Vital Signs (12 hours) Temp Pulse Resp BP Pulse Ox 12/12/17 12:00 72 22 H 181/78 H 92 L 12/12/17 11:49 72 22 H 93 L 12/12/17 10:42 86 12/12/17 08:00 95 12/12/17 07:39 97.8 F 67 22 H 161/84 H 95 12/12/17 06:55 63 22 H 94 L 12/12/17 04:00 98.0 F 64 19 153/87 H 94 L Weight Weight 159 lb 4.8 oz I&O: 12/11/17 12/12/17 12/13/17 06:59 06:59 06:59 Intake Total 1490 1370 Output Total 0 Balance 1490 1370 Result Diagrams: 12/10/17 04:40 12/12/17 04:54 Additional Labs: Microbiology 12/02/17 12:52 Venous blood - Right Arm Blood Culture - Final Coagulase Neg Staphylococcus 12/02/17 12:52 Venous blood - Left Arm Blood Culture - Final NO GROWTH IN 5 DAYS Phys Exam - Physical Examination Constitutional: NAD HEENT: PERRLA, moist MMs, sclera anicteric, TM's clear, oral pharynx no lesions , 2+ tonsils Neck: no nodes, no JVD, supple, full ROM Respiratory: no wheezing, no rales, no rhonchi, clear to auscultation bilateral decreased at bases Cardiovascular: RRR, no significant murmur Gastrointestinal: soft, non-tender, no distention, positive bowel sounds Musculoskeletal: no edema, pulses present Neurological: non-focal, normal sensation, moves all 4 limbs Psychiatric: normal affect, A&O x 3 Skin: no rash Dx/Plan (1) Acute respiratory failure with hypoxia and hypercapnia Code(s): J96.01 - ACUTE RESPIRATORY FAILURE WITH HYPOXIA; J96.02 - ACUTE RESPIRATORY FAILURE WITH HYPERCAPNIA Status: Acute Comment: off of Bipap. (2) COPD with exacerbation Code(s): J44.1 - CHRONIC OBSTRUCTIVE PULMONARY DISEASE W (ACUTE) EXACERBATION Status: Acute (3) Metabolic alkalosis Code(s): E87.3 - ALKALOSIS Status: Acute Comment: suspect volume depletion.Improving (4) THUY (acute kidney injury) Code(s): N17.9 - ACUTE KIDNEY FAILURE, UNSPECIFIED Status: Acute Comment: Improving (5) Atrial fibrillation Code(s): I48.91 - UNSPECIFIED ATRIAL FIBRILLATION Status: Chronic Qualifiers: Atrial fibrillation type: chronic Qualified Code(s): I48.2 - Chronic atrial fibrillation (6) DM2 (diabetes mellitus, type 2) Status: Chronic Qualifiers: Diabetes mellitus senior care insulin use: without tire beader maker use Diabetes mellitus complication status: with kidney complications Diabetes mellitus complication detail: with chronic kidney disease Chronic kidney disease stage : stage 2 (mild) Qualified Code(s): E11.22 - Type 2 diabetes mellitus with diabetic chronic kidney disease; N18.2 - Chronic kidney disease, stage 2 (mild) (7) HTN (hypertension) Code(s): I10 - ESSENTIAL (PRIMARY) HYPERTENSION Status: Chronic Qualifiers: Hypertension type: essential hypertension Qualified Code(s): I10 - Essential (primary) hypertension (8) Acute on chronic diastolic (congestive) heart failure Code(s): I50.33 - ACUTE ON CHRONIC DIASTOLIC (CONGESTIVE) HEART FAILURE Status : Resolved (9) breast cancer with metastasis Status: Acute (10) History of CHF (congestive heart failure) Code(s): Z86.79 - PERSONAL HISTORY OF OTHER DISEASES OF THE CIRCULATORY SYSTEM Status: Chronic (11) Hyperkalemia Code(s): E87.5 - HYPERKALEMIA Status: Resolved - Plan PT/OT, social work professor, respiratory therapy, incentive spirometry, DVT proph w/ SCDs Hold DC for now.Cont Bipap prn. -: metabolic alkalosis improving.HD stable -: Approved for Rehab -: Op appt w Oncology for metastatic breast CA * . Review of Systems - Review of Systems Constitutional: weakness, malaise Other: limited as Pt refuses to answer and wants me to ask Dr Finnegan instead - Medications/Allergies Allergies/Adverse Reactions: Allergies Allergy/AdvReac Type Severity Reaction Status Date / Time aspirin Allergy Verified 05/23/16 02:23 erythromycin base Allergy Verified 05/23/16 02:23 codeine AdvReac Intermediate NAUSEA/VOMI Verified 06/25/15 12:20 TING rivaroxaban [From Xarelto] AdvReac Intermediate EXCESSIVE Verified 06/25/15 12: 20 BRUISING dabigatran etexilate mesylate AdvReac EXCESSIVE Verified 06/25/15 12:20 [From Pradaxa] BRUISING warfarin sodium AdvReac EXCESSIVE Verified 06/25/15 12:19 [From Coumadin] BRUISING Medications: Current Medications Acetaminophen (Tylenol) 650 mg DC Q4H PRN PRN Reason: Headache/Fever/Mild Pain (1-3) Acetaminophen (Tylenol) 650 mg PO Q4H PRN PRN Reason: Headache/Fever/Mild Pain (1-3) Albuterol/Ipratropium (Duoneb) 3 ml NEB [id number] [facility] Last Admin: 12/12/17 11:49 Dose: 3 ml Albuterol/Ipratropium (Duoneb) 3 ml NEB Q6H PRN PRN Reason: SOB &/or Wheezing Anastrozole (Arimidex) 1 mg PO DAILY [facility] Last Admin: 12/12/17 10:42 Dose: 1 mg Bisacodyl (Dulcolax) 10 mg PO DAILYPRN PRN PRN Reason: Constipation Clonidine (Catapres) 0.1 mg PO Q4H PRN PRN Reason: SBP > _160___ Clopidogrel Bisulfate (Plavix) 75 mg PO DAILY [facility] Last Admin: 12/12/17 10:42 Dose: 75 mg Digoxin (Lanoxin) 0.125 mg PO DAILY [facility] Last Admin: 12/12/17 10:42 Dose: 0.125 mg Diltiazem HCl (Cardizem Sr) 60 mg PO TID [facility] Last Admin: 12/12/17 10:42 Dose: 60 mg Guaifenesin (Robitussin Sf) 200 mg PO Q4H PRN PRN Reason: Cough Heparin Sodium (Porcine) (Heparin) 5,000 units SC TID [facility] Last Admin: 12/12/17 10:42 Dose: 5,000 units Hydralazine HCl (Apresoline) 10 mg SLOW IVP Q4H PRN PRN Reason: BP >160/100 Last Admin: 12/03/17 05:19 Dose: 10 mg Acetaminophen 1,000 mg/ Device 100 mls @ 400 mls/hr IVPB Q8H PRN PRN Reason: Mild Pain (1-3)/FEVER Stop: 12/12/17 23:52 Nitroglycerin (Nitrostat) 0.4 mg SL Q5MIN PRN PRN Reason: Chest Pain Ondansetron HCl (Zofran) 4 mg IVP Q6H PRN PRN Reason: Nausea/Vomiting Senna/Docusate Sodium (Senokot S) 2 tab PO BID PRN PRN Reason: Constipation Sodium Chloride (Flush - Normal Saline) 10 ml IVF Q12HR A[facility] Sodium Chloride (Flush - Normal Saline) 10 ml IVF PRN PRN PRN Reason: Saline Flush
[2017-12-13] MEDS: Diltiazem HCl SR 60 mg Capsule PO SCH ×3 (10:26→21:54)
[2017-12-13] MEDS: Clopidogrel Bisulfate 75 MG TAB PO SCH (10:26)
[2017-12-13] MEDS: Digoxin 0.125 MG TAB PO SCH (10:26)
[2017-12-13] MEDS: Anastrozole 1 MG TAB PO SCH (10:26)
[2017-12-13] MEDS: Heparin 5,000 UNITS/ML VIAL SC SCH ×3 (10:27→21:54)
[2017-12-13] MEDS ORDERED: Furosemide 20 MG TAB PO SCH (10:45)
--- NOTE | 2017-12-13 14:57 | PDOC.PN ---
- Subjective Encounter Start Date: 12/13/17 Encounter Start Time: 14:56 Subjective: feels better today.seen when on O2 PNC.comfortable -: denies any CP/SOB at rest - Objective Resuscitation Status: Resuscitation Status FULL:Full Resuscitation MAR Reviewed: Yes Vital Signs & Weight: Vital Signs (12 hours) Temp Pulse Pulse Resp BP BP Pulse Ox 12/13/17 13:27 71 24 H 93 L 12/13/17 11:26 97.4 F L 66 31 H 152/69 H 85 L 12/13/17 10:26 87 12/13/17 10:08 86 136/55 L 12/13/17 08:14 77 22 H 88 L 12/13/17 08:00 87 L 12/13/17 07:51 97.3 F L 65 28 H 141/58 H 87 L 12/13/17 04:00 97.5 F L 63 22 H 143/68 H 85 L Pulse Ox Pulse Ox Pulse Ox 12/13/17 13:27 12/13/17 11:26 12/13/17 10:26 12/13/17 10:08 81 L 77 L 65 L 12/13/17 08:14 12/13/17 08:00 12/13/17 07:51 12/13/17 04:00 Weight Admit Weight 167 lb Weight 155 lb 1.6 oz I&O: 12/12/17 12/13/17 12/14/17 06:59 06:59 06:59 Intake Total 1370 1295 Output Total 0 Balance 1370 1295 Result Diagrams: 12/10/17 04:40 12/12/17 04:54 Additional Labs: Microbiology 12/02/17 12:52 Venous blood - Right Arm Blood Culture - Final Coagulase Neg Staphylococcus 12/02/17 12:52 Venous blood - Left Arm Blood Culture - Final NO GROWTH IN 5 DAYS Phys Exam - Physical Examination easily winded w conversation HEENT: PERRLA, moist MMs, sclera anicteric, oral pharynx no lesions Neck: no nodes, no JVD, supple, full ROM Respiratory: no wheezing, no rales, no rhonchi, clear to auscultation bilateral Cardiovascular: RRR, no significant murmur, no rub Gastrointestinal: soft, non-tender, no distention, positive bowel sounds Musculoskeletal: no edema, pulses present Neurological: non-focal, normal sensation, moves all 4 limbs Psychiatric: normal affect, A&O x 3 Skin: no rash Dx/Plan (1) Acute respiratory failure with hypoxia and hypercapnia Code(s): J96.01 - ACUTE RESPIRATORY FAILURE WITH HYPOXIA; J96.02 - ACUTE RESPIRATORY FAILURE WITH HYPERCAPNIA Status: Acute Comment: off of Bipap. (2) COPD with exacerbation Code(s): J44.1 - CHRONIC OBSTRUCTIVE PULMONARY DISEASE W (ACUTE) EXACERBATION Status: Acute (3) Metabolic alkalosis Code(s): E87.3 - ALKALOSIS Status: Acute Comment: suspect volume depletion.Improving (4) THUY (acute kidney injury) Code(s): N17.9 - ACUTE KIDNEY FAILURE, UNSPECIFIED Status: Acute Comment: Improving (5) Atrial fibrillation Code(s): I48.91 - UNSPECIFIED ATRIAL FIBRILLATION Status: Chronic Qualifiers: Atrial fibrillation type: chronic Qualified Code(s): I48.2 - Chronic atrial fibrillation Comment: NSR.Rate controlled on digoxin and CCB (6) DM2 (diabetes mellitus, type 2) Status: Chronic Qualifiers: 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 mellitus 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 use: without intermodal truck driver use Diabetes mellitus complication status: with kidney complications Diabetes mellitus complication detail: with chronic kidney disease Chronic kidney disease stage : stage 2 (mild) Qualified Code(s): E11.22 - Type 2 diabetes mellitus with diabetic chronic kidney disease; N18.2 - Chronic kidney disease, stage 2 (mild) (7) HTN (hypertension) Code(s): I10 - ESSENTIAL (PRIMARY) HYPERTENSION Status: Chronic Qualifiers: Hypertension type: essential hypertension Qualified Code(s): I10 - Essential (primary) hypertension (8) Acute on chronic diastolic (congestive) heart failure Code(s): I50.33 - ACUTE ON CHRONIC DIASTOLIC (CONGESTIVE) HEART FAILURE Status : Resolved Comment: resume diuretics (9) breast cancer with metastasis Status: Acute Comment: OP f/u w Oncology (10) History of CHF (congestive heart failure) Code(s): Z86.79 - PERSONAL HISTORY OF OTHER DISEASES OF THE CIRCULATORY SYSTEM Status: Chronic (11) Hyperkalemia Code(s): E87.5 - HYPERKALEMIA Status: Resolved - Plan PT/OT, respiratory therapy, incentive spirometry, out of bed/ambulate, DVT proph w/SCDs Ok to DC to rehab if able to put Bipap mask on herself -: pt updated and she will try -: O/W HD stable and ready for DC. -: restart diuretics and check labs in am if still here. -: restart advair as well. nebs prn.HD stable * . Review of Systems - Review of Systems Constitutional: weakness. negative: fever, chills, sweats, malaise, other Respiratory: SOB with Excertion. negative: Cough, Dry, Shortness of Breath, Hemoptysis, Pleuritic Pain, Sputum, Wheezing Cardiovascular: negative: chest pain, palpitations, orthopnea, paroxysmal nocturnal dyspnea, edema, light headedness, other Gastrointestinal: negative: Nausea, Vomiting, Abdominal Pain, Diarrhea, Constipation, Melena, Hematochezia, Other Genitourinary: negative: Dysuria, Frequency, Incontinence, Hematuria, Retention , Other Musculoskeletal: negative: Neck Pain, Shoulder Pain, Arm Pain, Back Pain, Hand Pain, Leg Pain, Foot Pain, Other Neurological: negative: Weakness, Numbness, Incoordination, Change in Speech, Confusion, Seizures, Other - Medications/Allergies Allergies/Adverse Reactions: Allergies Allergy/AdvReac Type Severity Reaction Status Date / Time aspirin Allergy Verified 05/23/16 02:23 erythromycin base Allergy Verified 05/23/16 02:23 codeine AdvReac Intermediate NAUSEA/VOMI Verified 06/25/15 12:20 TING rivaroxaban [From Xarelto] AdvReac Intermediate EXCESSIVE Verified 06/25/15 12: 20 BRUISING dabigatran etexilate mesylate AdvReac EXCESSIVE Verified 06/25/15 12:20 [From Pradaxa] BRUISING warfarin sodium AdvReac EXCESSIVE Verified 06/25/15 12:19 [From Coumadin] BRUISING Medications: Current Medications Acetaminophen (Tylenol) 650 mg OR Q4H PRN PRN Reason: Headache/Fever/Mild Pain (1-3) Acetaminophen (Tylenol) 650 mg PO Q4H PRN PRN Reason: Headache/Fever/Mild Pain (1-3) Albuterol/Ipratropium (Duoneb) 3 ml NEB [id number] [facility] Last Admin: 12/13/17 13:27 Dose: 3 ml Albuterol/Ipratropium (Duoneb) 3 ml NEB Q6H PRN PRN Reason: SOB &/or Wheezing Anastrozole (Arimidex) 1 mg PO DAILY [facility] Last Admin: 12/13/17 10:26 Dose: 1 mg Aspirin (Aspirin Chewable) 81 mg PO DAILY [facility] Bisacodyl (Dulcolax) 10 mg PO DAILYPRN PRN PRN Reason: Constipation Clonidine (Catapres) 0.1 mg PO Q4H PRN PRN Reason: SBP > _160___ Clopidogrel Bisulfate (Plavix) 75 mg PO DAILY [facility] Last Admin: 12/13/17 10:26 Dose: 75 mg Digoxin (Lanoxin) 0.125 mg PO DAILY [facility] Last Admin: 12/13/17 10:26 Dose: 0.125 mg Diltiazem HCl (Cardizem Sr) 60 mg PO TID [facility] Last Admin: 12/13/17 10:26 Dose: 60 mg Furosemide (Lasix) 20 mg PO DAILY [facility] Guaifenesin (Robitussin Sf) 200 mg PO Q4H PRN PRN Reason: Cough Heparin Sodium (Porcine) (Heparin) 5,000 units SC TID [facility] Last Admin: 12/13/17 10:27 Dose: 5,000 units Hydralazine HCl (Apresoline) 10 mg SLOW IVP Q4H PRN PRN Reason: BP >160/100 Last Admin: 12/03/17 05:19 Dose: 10 mg Mometasone Furoate/Formoterol Fumar (Dulera 200 Mcg/5 Mcg Inhaler) 2 puff INH BID-RT [facility] Nitroglycerin (Nitrostat) 0.4 mg SL Q5MIN PRN PRN Reason: Chest Pain Ondansetron HCl (Zofran) 4 mg IVP Q6H PRN PRN Reason: Nausea/Vomiting Senna/Docusate Sodium (Senokot S) 2 tab PO BID PRN PRN Reason: Constipation Sodium Chloride (Flush - Normal Saline) 10 ml IVF Q12HR [facility] Last Admin: 12/13/17 10:34 Dose: 10 ml Sodium Chloride (Flush - Normal Saline) 10 ml IVF PRN PRN PRN Reason: Saline Flush
--- NOTE | 2017-12-13 15:28 | PRG ---
DATE OF SERVICE: 12/13/2017 SERVICE: Pulmonary Medicine. INTERVAL HISTORY: The patient is doing fine from a respiratory standpoint. She is breathing comfort ably. This morning, I found her sleeping. She was wearing her BiPAP equipment. I talked to h er about how she needs to wear BiPAP whenever she is sleeping in order to prevent toxins from buildin g up. She has a little asterixis this morning. PHYSICAL EXAMINATION: VITAL SIGNS: Afebrile, pulse 71, blood pressure 152/69, respirations 24, saturation 93% on 3 liters nasal cannula. GENERAL: The patient is awake, alert, no apparent distress. LUNGS: Decreased air entry. There is a prolonged expiratory phase. Wheezing are minimal. No rhonc hi or crackles are appreciated. HEART: Normal rate, regular. ABDOMEN: Soft, nontender, nondistended. Bowel sounds are positive. MUSCULOSKELETAL: No cyanosis or clubbing. There is 1+ pitting in the bilateral lower extremities. GENITOURINARY: No [place]. NEUROLOGIC: Grossly nonfocal. ASSESSMENT: 1. Acute on chronic hypoxic and hypercapnic respiratory failure, resolved to baseline. 2. Chronic obstructive pulmonary disease with acute exacerbation, status post full course of antibio tic and steroids. 3. Acute on chronic diastolic and valvular heart failure. 4. Breast cancer, metastatic. 5. Deconditioning, severe. DISCUSSION AND PLAN: The patient is doing fine. We need to maintain saturations between 82% and 88% through time. Giving her more oxygen will actually cause her to hypoventilate and can create more r espiratory and mentation issues. She needs to wear her BiPAP and/or volume ventilator whenever she i s sleeping and as needed during the daytime. That being said, she is going out on this piece of equi pment. From my perspective, she is at baseline and can be transitioned to her rehabilitation facilit y. Pulmonary Critical Care will continue to follow along if she remains in-house.
[2017-12-13] MEDS: Mometasone/Formoterol 120 PUFF INHALER INH SCH (18:16)
[2017-12-14] MEDS: Mometasone/Formoterol 120 PUFF INHALER INH SCH ×2 (06:00→18:36)
[2017-12-14] MEDS: Anastrozole 1 MG TAB PO SCH (08:28)
[2017-12-14] MEDS: Digoxin 0.125 MG TAB PO SCH (08:28)
[2017-12-14] MEDS: Clopidogrel Bisulfate 75 MG TAB PO SCH (08:28)
[2017-12-14] MEDS: Diltiazem HCl SR 60 mg Capsule PO SCH ×3 (08:29→20:17)
[2017-12-14] MEDS: Furosemide 20 MG TAB PO SCH (08:29)
[2017-12-14] MEDS: Heparin 5,000 UNITS/ML VIAL SC SCH ×3 (08:29→20:17)
[2017-12-14] MEDS ORDERED: Furosemide 40 MG TAB PO SCH (09:00)
--- NOTE | 2017-12-14 10:35 | PRG ---
DATE OF SERVICE: 12/14/2017 SERVICE: Pulmonary Medicine. INTERVAL HISTORY: The patient is doing outstanding from a respiratory standpoint. Denies any current chest pain or fevers or chills. She is breathing comfortably. Her sats were in the low 90s. Whenever she wakes up, she typically drops into the mid 80s, but is perfectly comfortable. This is her baseline. Otherwise, there is no interval change to her condition. PHYSICAL EXAMINATION: VITAL SIGNS: Afebrile, pulse 72, blood pressure 143/65, respirations 19, saturation 86% on 3 liters nasal cannula. GENERAL: The patient is awake and alert, in no apparent distress. LUNGS: Decreased air entry. There is a prolonged expiratory phase. No wheezing present today. Rhonchi are there, but clear with cough. No crackles. HEART: Normal rate, regular. ABDOMEN: Soft, nontender, nondistended. Bowel sounds are positive. MUSCULOSKELETAL: No cyanosis or clubbing. There is no pitting in the bilateral lower extremities. NEUROLOGIC: Grossly nonfocal. ASSESSMENT: 1. Acute on chronic hypoxic and hypercapnic respiratory failure, resolved to baseline. 2. Chronic obstructive pulmonary disease with acute exacerbation, status post full course of antibiotic and steroids. 3. Acute on chronic diastolic and valvular heart failure. 4. Breast cancer, metastatic. 5. Deconditioning, severe. DISCUSSION AND PLAN: The patient is at her baseline. She will continue to work with physical therapy and occupational therapy. From my perspective, she stable for transition out of the hospital. She is going to a rehabilitation facility. She is set up for a home ventilator when she arrives at that location. I will have her return to see me in clinic in a couple of weeks with a download off her unit. If she remains in house, Pulmonary will continue to follow. MAHIN
--- NOTE | 2017-12-14 15:50 | PDOC.PN ---
- Subjective Encounter Start Date: 12/14/17 Encounter Start Time: 15:49 Subjective: feels better.denies any SOB at rest - Objective Resuscitation Status: Resuscitation Status FULL:Full Resuscitation MAR Reviewed: Yes Vital Signs & Weight: Vital Signs (12 hours) Temp Pulse Pulse Pulse Resp BP BP 12/14/17 15:14 98.4 F 55 L 12 12/14/17 13:25 71 24 H 12/14/17 12:00 12/14/17 11:40 98.4 F 69 22 H 12/14/17 09:54 86 83 146/71 H 152/79 H 12/14/17 08:28 78 12/14/17 07:57 12/14/17 07:36 98.5 F 72 19 12/14/17 06:12 12/14/17 06:00 57 L 24 H 12/14/17 04:00 97.3 F L 64 20 BP Pulse Ox Pulse Ox Pulse Ox 12/14/17 15:14 146/69 H 94 L 12/14/17 13:25 12/14/17 12:00 86 L 12/14/17 11:40 144/89 H 83 L 12/14/17 09:54 80 L 79 L 12/14/17 08:28 12/14/17 07:57 83 L 12/14/17 07:36 143/65 H 86 L 12/14/17 06:12 97 12/14/17 06:00 97 12/14/17 04:00 141/67 H 97 Weight Admit Weight 167 lb Weight 157 lb 3.2 oz I&O: 12/13/17 12/14/17 12/15/17 06:59 06:59 06:59 Intake Total 1295 1280 Balance 1295 1280 Result Diagrams: 12/10/17 04:40 12/12/17 04:54 Phys Exam - Physical Examination Constitutional: NAD sitting up in chair eating lunch HEENT: PERRLA, moist MMs, sclera anicteric, oral pharynx no lesions Neck: no nodes, no JVD, supple, full ROM Respiratory: no wheezing, no rales, no rhonchi, clear to auscultation bilateral Cardiovascular: RRR, no significant murmur Gastrointestinal: soft, non-tender, no distention, positive bowel sounds Musculoskeletal: no edema, pulses present Neurological: non-focal, normal sensation, moves all 4 limbs Psychiatric: normal affect, A&O x 3 Skin: no rash Dx/Plan (1) Acute respiratory failure with hypoxia and hypercapnia Code(s): J96.01 - ACUTE RESPIRATORY FAILURE WITH HYPOXIA; J96.02 - ACUTE RESPIRATORY FAILURE WITH HYPERCAPNIA Status: Acute Comment: off of Bipap.using prn (2) COPD with exacerbation Code(s): J44.1 - CHRONIC OBSTRUCTIVE PULMONARY DISEASE W (ACUTE) EXACERBATION Status: Acute (3) Metabolic alkalosis Code(s): E87.3 - ALKALOSIS Status: Acute Comment: suspect volume depletion.Improving (4) THUY (acute kidney injury) Code(s): N17.9 - ACUTE KIDNEY FAILURE, UNSPECIFIED Status: Acute Comment: Improving (5) Atrial fibrillation Code(s): I48.91 - UNSPECIFIED ATRIAL FIBRILLATION Status: Chronic Qualifiers: Atrial fibrillation type: chronic Qualified Code(s): I48.2 - Chronic atrial fibrillation Comment: NSR.Rate controlled on digoxin and CCB (6) DM2 (diabetes mellitus, type 2) Status: Chronic Qualifiers: Diabetes mellitus fci insulin use: without ferry terminal supervisor use Diabetes mellitus complication status: with kidney complications Diabetes mellitus complication detail: with chronic kidney disease Chronic kidney disease stage : stage 2 (mild) Qualified Code(s): E11.22 - Type 2 diabetes mellitus with diabetic chronic kidney disease; N18.2 - Chronic kidney disease, stage 2 (mild) (7) HTN (hypertension) Code(s): I10 - ESSENTIAL (PRIMARY) HYPERTENSION Status: Chronic Qualifiers: Hypertension type: essential hypertension Qualified Code(s): I10 - Essential (primary) hypertension (8) Acute on chronic diastolic (congestive) heart failure Code(s): I50.33 - ACUTE ON CHRONIC DIASTOLIC (CONGESTIVE) HEART FAILURE Status : Resolved Comment: resume diuretics (9) breast cancer with metastasis Status: Acute Comment: OP f/u w Oncology (10) History of CHF (congestive heart failure) Code(s): Z86.79 - PERSONAL HISTORY OF OTHER DISEASES OF THE CIRCULATORY SYSTEM Status: Chronic (11) Hyperkalemia Code(s): E87.5 - HYPERKALEMIA Status: Resolved - Plan PT/OT, respiratory therapy, incentive spirometry, out of bed/ambulate, DVT proph w/SCDs awaiting placement.medically ready -: cont supportive care as above -: Hemodynamically stable -: labs in am * . Review of Systems - Review of Systems Constitutional: weakness. negative: fever, chills, sweats, malaise, other Respiratory: SOB with Excertion. negative: Cough, Dry, Shortness of Breath, Hemoptysis, Pleuritic Pain, Sputum, Wheezing Cardiovascular: negative: chest pain, palpitations, orthopnea, paroxysmal nocturnal dyspnea, edema, light headedness, other Gastrointestinal: negative: Nausea, Vomiting, Abdominal Pain, Diarrhea, Constipation, Melena, Hematochezia, Other Genitourinary: negative: Dysuria, Frequency, Incontinence, Hematuria, Retention , Other Musculoskeletal: negative: Neck Pain, Shoulder Pain, Arm Pain, Back Pain, Hand Pain, Leg Pain, Foot Pain, Other Skin: negative: Rash, Lesions, Vinayak, Bruising, Other Neurological: negative: Weakness, Numbness, Incoordination, Change in Speech, Confusion, Seizures, Other - Medications/Allergies Allergies/Adverse Reactions: Allergies Allergy/AdvReac Type Severity Reaction Status Date / Time aspirin Allergy Verified 12/14/17 09:14 erythromycin base Allergy Verified 05/23/16 02:23 codeine AdvReac Intermediate NAUSEA/VOMI Verified 06/25/15 12:20 TING rivaroxaban [From Xarelto] AdvReac Intermediate EXCESSIVE Verified 06/25/15 12: 20 BRUISING dabigatran etexilate mesylate AdvReac EXCESSIVE Verified 06/25/15 12:20 [From Pradaxa] BRUISING warfarin sodium AdvReac EXCESSIVE Verified 06/25/15 12:19 [From Coumadin] BRUISING Medications: Current Medications Acetaminophen (Tylenol) 650 mg NE Q4H PRN PRN Reason: Headache/Fever/Mild Pain (1-3) Acetaminophen (Tylenol) 650 mg PO Q4H PRN PRN Reason: Headache/Fever/Mild Pain (1-3) Albuterol/Ipratropium (Duoneb) 3 ml NEB [id number] [facility] Last Admin: 12/14/17 13:25 Dose: 3 ml Albuterol/Ipratropium (Duoneb) 3 ml NEB Q6H PRN PRN Reason: SOB &/or Wheezing Anastrozole (Arimidex) 1 mg PO DAILY [facility] Last Admin: 12/14/17 08:28 Dose: 1 mg Aspirin (Aspirin Chewable) 81 mg PO DAILY [facility] Last Admin: 12/14/17 09:10 Dose: 81 mg Bisacodyl (Dulcolax) 10 mg PO DAILYPRN PRN PRN Reason: Constipation Clonidine (Catapres) 0.1 mg PO Q4H PRN PRN Reason: SBP > _160___ Clopidogrel Bisulfate (Plavix) 75 mg PO DAILY [facility] Last Admin: 12/14/17 08:28 Dose: 75 mg Digoxin (Lanoxin) 0.125 mg PO DAILY [facility] Last Admin: 12/14/17 08:28 Dose: 0.125 mg Diltiazem HCl (Cardizem Sr) 60 mg PO TID [facility] Last Admin: 12/14/17 14:59 Dose: 60 mg Furosemide (Lasix) 20 mg PO DAILY [facility] Last Admin: 12/14/17 08:29 Dose: 20 mg Guaifenesin (Robitussin Sf) 200 mg PO Q4H PRN PRN Reason: Cough Heparin Sodium (Porcine) (Heparin) 5,000 units SC TID [facility] Last Admin: 12/14/17 14:59 Dose: 5,000 units Hydralazine HCl (Apresoline) 10 mg SLOW IVP Q4H PRN PRN Reason: BP >160/100 Last Admin: 12/03/17 05:19 Dose: 10 mg Mometasone Furoate/Formoterol Fumar (Dulera 200 Mcg/5 Mcg Inhaler) 2 puff INH BID-RT [facility] Last Admin: 12/14/17 06:00 Dose: 2 puff Nitroglycerin (Nitrostat) 0.4 mg SL Q5MIN PRN PRN Reason: Chest Pain Ondansetron HCl (Zofran) 4 mg IVP Q6H PRN PRN Reason: Nausea/Vomiting Senna/Docusate Sodium (Senokot S) 2 tab PO BID PRN PRN Reason: Constipation Sodium Chloride (Flush - Normal Saline) 10 ml IVF Q12HR [facility] Last Admin: 12/14/17 09:10 Dose: 10 ml Sodium Chloride (Flush - Normal Saline) 10 ml IVF PRN PRN PRN Reason: Saline Flush
[2017-12-15 04:17] LABS: BUN (Urea Nitrogen) 28 mg/dL (9.8-20.1); Calc. Creatinine Clearance 74 mL/min (70-130); Calcium 10.1 mg/dL (7.8-10.44); Estimated GFR-MDRD 72; Glucose 110 mg/dL (83-110)
[2017-12-15 04:27] LABS: Anion Gap 12 mmol/L (10-20); Chloride 90 mmol/L (98-107); Potassium 4.4 mmol/L (3.5-5.1); Sodium 139 mmol/L (136-145)
[2017-12-15 04:29] LABS: Carbon Dioxide 41 mmol/L (23-31)
[2017-12-15] MEDS: Mometasone/Formoterol 120 PUFF INHALER INH SCH ×2 (06:13→18:54)
[2017-12-15] MEDS: Furosemide 20 MG TAB PO SCH (08:48)
[2017-12-15] MEDS: Diltiazem HCl SR 60 mg Capsule PO SCH ×3 (08:48→20:43)
[2017-12-15] MEDS: Clopidogrel Bisulfate 75 MG TAB PO SCH (08:48)
[2017-12-15] MEDS: Heparin 5,000 UNITS/ML VIAL SC SCH ×3 (08:48→20:41)
[2017-12-15] MEDS: Anastrozole 1 MG TAB PO SCH (08:48)
[2017-12-15] MEDS: Digoxin 0.125 MG TAB PO SCH (08:48)
--- NOTE | 2017-12-15 12:11 | PRG ---
DATE OF SERVICE: 12/15/2017 SUBJECTIVE: The patient is about the same. She has no acute complaints. PHYSICAL EXAMINATION: VITAL SIGNS: Temperature 98.2, pulse 78, respirations 18, O2 sat 95% on 3 liters, blood pressure 157 /83. HEENT: Unremarkable. NECK: No JVD. CHEST: Clear, but distant breath sounds. CARDIAC: S1, S2 regular. ABDOMEN: Soft. EXTREMITIES: No edema. LABORATORY DATA: Sodium 139, potassium 4.4, BUN 28, creatinine 0.7, glucose 110. ASSESSMENT: 1. Chronic obstructive pulmonary disease with exacerbation. 2. Chronic hypoxic and hypercapnic respiratory failure. PLAN: She is probably near her baseline. She probably would benefit from use of a Trilogy ventilato r at night. I think she needs rehab.
--- NOTE | 2017-12-15 14:02 | PDOC.PN ---
- Subjective Encounter Start Date: 12/15/17 Encounter Start Time: 14:01 Subjective: feels well. needing bipap on and off per RN -: no new events ON - Objective Resuscitation Status: Resuscitation Status FULL:Full Resuscitation MAR Reviewed: Yes Vital Signs & Weight: Vital Signs (12 hours) Temp Pulse Resp BP Pulse Ox 12/15/17 12:37 77 18 92 L 12/15/17 10:52 98.2 F 78 18 157/83 H 95 12/15/17 08:48 77 12/15/17 08:00 89 L 12/15/17 07:26 97.8 F 68 20 118/97 H 90 L 12/15/17 06:11 68 18 91 L 12/15/17 04:00 98.2 F 56 L 24 H 121/80 97 Weight Admit Weight 167 lb Weight 158 lb 8 oz I&O: 12/14/17 12/15/17 12/16/17 06:59 06:59 06:59 Intake Total 1280 2480 Balance 1280 2480 Result Diagrams: 12/10/17 04:40 12/15/17 03:46 Phys Exam - Physical Examination Constitutional: NAD HEENT: PERRLA, moist MMs, sclera anicteric, oral pharynx no lesions Neck: no nodes, no JVD, supple, full ROM Respiratory: no wheezing, no rales, no rhonchi, clear to auscultation bilateral Cardiovascular: RRR, no significant murmur, no rub Gastrointestinal: soft, non-tender, no distention, positive bowel sounds Musculoskeletal: no edema, pulses present Dx/Plan (1) Acute respiratory failure with hypoxia and hypercapnia Code(s): J96.01 - ACUTE RESPIRATORY FAILURE WITH HYPOXIA; J96.02 - ACUTE RESPIRATORY FAILURE WITH HYPERCAPNIA Status: Acute Comment: off of Bipap.using prn (2) COPD with exacerbation Code(s): J44.1 - CHRONIC OBSTRUCTIVE PULMONARY DISEASE W (ACUTE) EXACERBATION Status: Acute (3) Metabolic alkalosis Code(s): E87.3 - ALKALOSIS Status: Acute Comment: suspect volume depletion.Improving (4) THUY (acute kidney injury) Code(s): N17.9 - ACUTE KIDNEY FAILURE, UNSPECIFIED Status: Acute Comment: Improving (5) Atrial fibrillation Code(s): I48.91 - UNSPECIFIED ATRIAL FIBRILLATION Status: Chronic Qualifiers: Atrial fibrillation type: chronic Qualified Code(s): I48.2 - Chronic atrial fibrillation Comment: NSR.Rate controlled on digoxin and CCB (6) DM2 (diabetes mellitus, type 2) Status: Chronic Qualifiers: Diabetes mellitus clothing room supervisor insulin use: without clothing room supervisor use Diabetes mellitus complication status: with kidney complications Diabetes mellitus complication detail: with chronic kidney disease Chronic kidney disease stage : stage 2 (mild) Qualified Code(s): E11.22 - Type 2 diabetes mellitus with diabetic chronic kidney disease; N18.2 - Chronic kidney disease, stage 2 (mild) (7) HTN (hypertension) Code(s): I10 - ESSENTIAL (PRIMARY) HYPERTENSION Status: Chronic Qualifiers: Hypertension type: essential hypertension Qualified Code(s): I10 - Essential (primary) hypertension (8) Acute on chronic diastolic (congestive) heart failure Code(s): I50.33 - ACUTE ON CHRONIC DIASTOLIC (CONGESTIVE) HEART FAILURE Status : Resolved Comment: resume diuretics (9) breast cancer with metastasis Status: Acute Comment: OP f/u w Oncology (10) History of CHF (congestive heart failure) Code(s): Z86.79 - PERSONAL HISTORY OF OTHER DISEASES OF THE CIRCULATORY SYSTEM Status: Chronic (11) Hyperkalemia Code(s): E87.5 - HYPERKALEMIA Status: Resolved - Plan 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 -: cont meds as below -: bipap prn * . Review of Systems - Review of Systems Constitutional: weakness, malaise. negative: fever, chills, sweats, other Respiratory: SOB with Excertion. negative: Cough, Dry, Shortness of Breath, Hemoptysis, Pleuritic Pain, Sputum, Wheezing Cardiovascular: negative: chest pain, palpitations, orthopnea, paroxysmal nocturnal dyspnea, edema, light headedness, other Gastrointestinal: negative: Nausea, Vomiting, Abdominal Pain, Diarrhea, Constipation, Melena, Hematochezia, Other Genitourinary: negative: Dysuria, Frequency, Incontinence, Hematuria, Retention , Other Musculoskeletal: negative: Neck Pain, Shoulder Pain, Arm Pain, Back Pain, Hand Pain, Leg Pain, Foot Pain, Other Neurological: negative: Weakness, Numbness, Incoordination, Change in Speech, Confusion, Seizures, Other - Medications/Allergies Allergies/Adverse Reactions: Allergies Allergy/AdvReac Type Severity Reaction Status Date / Time aspirin Allergy Verified 12/14/17 09:14 erythromycin base Allergy Verified 05/23/16 02:23 codeine AdvReac Intermediate NAUSEA/VOMI Verified 06/25/15 12:20 TING rivaroxaban [From Xarelto] AdvReac Intermediate EXCESSIVE Verified 06/25/15 12: 20 BRUISING dabigatran etexilate mesylate AdvReac EXCESSIVE Verified 06/25/15 12:20 [From Pradaxa] BRUISING warfarin sodium AdvReac EXCESSIVE Verified 06/25/15 12:19 [From Coumadin] BRUISING Medications: Current Medications Acetaminophen (Tylenol) 650 mg [place] Q4H PRN PRN Reason: Headache/Fever/Mild Pain (1-3) Acetaminophen (Tylenol) 650 mg PO Q4H PRN PRN Reason: Headache/Fever/Mild Pain (1-3) Albuterol/Ipratropium (Duoneb) 3 ml NEB [id number] [facility] Last Admin: 12/15/17 12:37 Dose: 3 ml Albuterol/Ipratropium (Duoneb) 3 ml NEB Q6H PRN PRN Reason: SOB &/or Wheezing Anastrozole (Arimidex) 1 mg PO DAILY [facility] Last Admin: 12/15/17 08:48 Dose: 1 mg Aspirin (Aspirin Chewable) 81 mg PO DAILY [facility] Last Admin: 12/15/17 08:48 Dose: 81 mg Bisacodyl (Dulcolax) 10 mg PO DAILYPRN PRN PRN Reason: Constipation Clonidine (Catapres) 0.1 mg PO Q4H PRN PRN Reason: SBP > _160___ Clopidogrel Bisulfate (Plavix) 75 mg PO DAILY [facility] Last Admin: 12/15/17 08:48 Dose: 75 mg Digoxin (Lanoxin) 0.125 mg PO DAILY [facility] Last Admin: 12/15/17 08:48 Dose: 0.125 mg Diltiazem HCl (Cardizem Sr) 60 mg PO TID [facility] Last Admin: 12/15/17 08:48 Dose: 60 mg Furosemide (Lasix) 20 mg PO DAILY [facility] Last Admin: 12/15/17 08:48 Dose: 20 mg Guaifenesin (Robitussin Sf) 200 mg PO Q4H PRN PRN Reason: Cough Heparin Sodium (Porcine) (Heparin) 5,000 units SC TID [facility] Last Admin: 12/15/17 08:48 Dose: 5,000 units Hydralazine HCl (Apresoline) 10 mg SLOW IVP Q4H PRN PRN Reason: BP >160/100 Last Admin: 12/03/17 05:19 Dose: 10 mg Mometasone Furoate/Formoterol Fumar (Dulera 200 Mcg/5 Mcg Inhaler) 2 puff INH BID-RT [facility] Last Admin: 12/15/17 06:13 Dose: 2 puff Nitroglycerin (Nitrostat) 0.4 mg SL Q5MIN PRN PRN Reason: Chest Pain Ondansetron HCl (Zofran) 4 mg IVP Q6H PRN PRN Reason: Nausea/Vomiting Senna/Docusate Sodium (Senokot S) 2 tab PO BID PRN PRN Reason: Constipation Sodium Chloride (Flush - Normal Saline) 10 ml IVF Q12HR [facility] Last Admin: 12/15/17 08:49 Dose: 10 ml Sodium Chloride (Flush - Normal Saline) 10 ml IVF PRN PRN PRN Reason: Saline Flush
[2017-12-16] MEDS: Mometasone/Formoterol 120 PUFF INHALER INH SCH ×2 (08:07→18:43)
[2017-12-16] MEDS: Heparin 5,000 UNITS/ML VIAL SC SCH ×3 (08:56→21:37)
[2017-12-16] MEDS: Anastrozole 1 MG TAB PO SCH (08:56)
[2017-12-16] MEDS: Digoxin 0.125 MG TAB PO SCH (08:56)
[2017-12-16] MEDS: Diltiazem HCl SR 60 mg Capsule PO SCH ×3 (08:56→21:36)
[2017-12-16] MEDS: Clopidogrel Bisulfate 75 MG TAB PO SCH (08:56)
[2017-12-16] MEDS: Furosemide 20 MG TAB PO SCH (09:00)
--- NOTE | 2017-12-16 10:03 | PDOC.PN ---
- Subjective Encounter Start Date: 12/16/17 Encounter Start Time: 10:01 Subjective: feels good. no new complaints -: didn't get much sleep last night.used Bipap on and off -: denies any chest pain. - Objective Resuscitation Status: Resuscitation Status FULL:Full Resuscitation MAR Reviewed: Yes Vital Signs & Weight: Vital Signs (12 hours) Temp Pulse Resp BP Pulse Ox 12/16/17 08:56 65 12/16/17 08:08 90 L 12/16/17 08:05 64 17 90 L 12/16/17 03:57 97.5 F L 50 L 26 H 133/57 L 94 L 12/16/17 01:09 45 L 18 99 12/16/17 01:08 46 L 18 94 L 12/16/17 00:00 97.5 F L 60 22 H 131/71 98 Weight Admit Weight 167 lb Weight 157 lb 1 oz I&O: 12/15/17 12/16/17 12/17/17 06:59 06:59 06:59 Intake Total 2480 2360 Balance 2480 2360 Result Diagrams: 12/10/17 04:40 12/15/17 03:46 Phys Exam - Physical Examination Constitutional: NAD HEENT: PERRLA, moist MMs, sclera anicteric, oral pharynx no lesions Neck: no nodes, no JVD, supple, full ROM Respiratory: no wheezing, no rales, no rhonchi, clear to auscultation bilateral very limited /reduced breath sounds b/l Cardiovascular: RRR, no significant murmur, no rub Gastrointestinal: soft, non-tender, no distention, positive bowel sounds Musculoskeletal: no edema, pulses present Neurological: non-focal, normal sensation, moves all 4 limbs Psychiatric: normal affect, A&O x 3 Dx/Plan (1) Acute respiratory failure with hypoxia and hypercapnia Code(s): J96.01 - ACUTE RESPIRATORY FAILURE WITH HYPOXIA; J96.02 - ACUTE RESPIRATORY FAILURE WITH HYPERCAPNIA Status: Acute Comment: off of Bipap.using prn (2) COPD with exacerbation Code(s): J44.1 - CHRONIC OBSTRUCTIVE PULMONARY DISEASE W (ACUTE) EXACERBATION Status: Acute (3) Metabolic alkalosis Code(s): E87.3 - ALKALOSIS Status: Acute Comment: suspect volume depletion.Improving (4) THUY (acute kidney injury) Code(s): N17.9 - ACUTE KIDNEY FAILURE, UNSPECIFIED Status: Acute Comment: Improving (5) Atrial fibrillation Code(s): I48.91 - UNSPECIFIED ATRIAL FIBRILLATION Status: Chronic Qualifiers: Atrial fibrillation type: chronic Qualified Code(s): I48.2 - Chronic atrial fibrillation Comment: NSR.Rate controlled on digoxin and CCB (6) DM2 (diabetes mellitus, type 2) Status: Chronic Qualifiers: Diabetes mellitus shelter insulin use: without emt intermediate use Diabetes mellitus complication status: with kidney complications Diabetes mellitus complication detail: with chronic kidney disease Chronic kidney disease stage : stage 2 (mild) Qualified Code(s): E11.22 - Type 2 diabetes mellitus with diabetic chronic kidney disease; N18.2 - Chronic kidney disease, stage 2 (mild) (7) HTN (hypertension) Code(s): I10 - ESSENTIAL (PRIMARY) HYPERTENSION Status: Chronic Qualifiers: Hypertension type: essential hypertension Qualified Code(s): I10 - Essential (primary) hypertension (8) Acute on chronic diastolic (congestive) heart failure Code(s): I50.33 - ACUTE ON CHRONIC DIASTOLIC (CONGESTIVE) HEART FAILURE Status : Resolved Comment: resume diuretics (9) breast cancer with metastasis Status: Acute Comment: OP f/u w Oncology (10) History of CHF (congestive heart failure) Code(s): Z86.79 - PERSONAL HISTORY OF OTHER DISEASES OF THE CIRCULATORY SYSTEM Status: Chronic (11) Hyperkalemia Code(s): E87.5 - HYPERKALEMIA Status: Resolved - Plan PT/OT, 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 DC if accepted -: cont Bipap prn.supportive care -: Op f/u w Oncology w new Dx of mets w H/O Breast CA -: check labs in am to follow on Metab Alkalosis.Pt on lasix again * . Review of Systems - Review of Systems Constitutional: negative: fever, chills, sweats, weakness, malaise, other Respiratory: Shortness of Breath, SOB with Excertion. negative: Cough, Dry, Hemoptysis, Pleuritic Pain, Sputum, Wheezing Cardiovascular: negative: chest pain, palpitations, orthopnea, paroxysmal nocturnal dyspnea, edema, light headedness, other Gastrointestinal: negative: Nausea, Vomiting, Abdominal Pain, Diarrhea, Constipation, Melena, Hematochezia, Other Genitourinary: negative: Dysuria, Frequency, Incontinence, Hematuria, Retention , Other Musculoskeletal: negative: Neck Pain, Shoulder Pain, Arm Pain, Back Pain, Hand Pain, Leg Pain, Foot Pain, Other Skin: negative: Rash, Lesions, Vinayak, Bruising, Other Neurological: negative: Weakness, Numbness, Incoordination, Change in Speech, Confusion, Seizures, Other - Medications/Allergies Allergies/Adverse Reactions: Allergies Allergy/AdvReac Type Severity Reaction Status Date / Time aspirin Allergy Verified 12/14/17 09:14 erythromycin base Allergy Verified 05/23/16 02:23 codeine AdvReac Intermediate NAUSEA/VOMI Verified 06/25/15 12:20 TING rivaroxaban [From Xarelto] AdvReac Intermediate EXCESSIVE Verified 06/25/15 12: 20 BRUISING dabigatran etexilate mesylate AdvReac EXCESSIVE Verified 06/25/15 12:20 [From Pradaxa] BRUISING warfarin sodium AdvReac EXCESSIVE Verified 06/25/15 12:19 [From Coumadin] BRUISING Medications: Current Medications Acetaminophen (Tylenol) 650 mg [place] Q4H PRN PRN Reason: Headache/Fever/Mild Pain (1-3) Acetaminophen (Tylenol) 650 mg PO Q4H PRN PRN Reason: Headache/Fever/Mild Pain (1-3) Albuterol/Ipratropium (Duoneb) 3 ml NEB [id number] [facility] Last Admin: 12/16/17 08:05 Dose: 3 ml Albuterol/Ipratropium (Duoneb) 3 ml NEB Q6H PRN PRN Reason: SOB &/or Wheezing Anastrozole (Arimidex) 1 mg PO DAILY [facility] Last Admin: 12/16/17 08:56 Dose: 1 mg Aspirin (Aspirin Chewable) 81 mg PO DAILY [facility] Last Admin: 12/16/17 08:56 Dose: 81 mg Bisacodyl (Dulcolax) 10 mg PO DAILYPRN PRN PRN Reason: Constipation Clonidine (Catapres) 0.1 mg PO Q4H PRN PRN Reason: SBP > _160___ Clopidogrel Bisulfate (Plavix) 75 mg PO DAILY [facility] Last Admin: 12/16/17 08:56 Dose: 75 mg Digoxin (Lanoxin) 0.125 mg PO DAILY [facility] Last Admin: 12/16/17 08:56 Dose: 0.125 mg Diltiazem HCl (Cardizem Sr) 60 mg PO TID [facility] Last Admin: 12/16/17 08:56 Dose: 60 mg Furosemide (Lasix) 20 mg PO DAILY [facility] Last Admin: 12/16/17 09:00 Dose: 20 mg Guaifenesin (Robitussin Sf) 200 mg PO Q4H PRN PRN Reason: Cough Heparin Sodium (Porcine) (Heparin) 5,000 units SC TID [facility] Last Admin: 12/16/17 08:56 Dose: 5,000 units Hydralazine HCl (Apresoline) 10 mg SLOW IVP Q4H PRN PRN Reason: BP >160/100 Last Admin: 12/03/17 05:19 Dose: 10 mg Mometasone Furoate/Formoterol Fumar (Dulera 200 Mcg/5 Mcg Inhaler) 2 puff INH BID-RT [facility] Last Admin: 12/16/17 08:07 Dose: 2 puff Nitroglycerin (Nitrostat) 0.4 mg SL Q5MIN PRN PRN Reason: Chest Pain Ondansetron HCl (Zofran) 4 mg IVP Q6H PRN PRN Reason: Nausea/Vomiting Senna/Docusate Sodium (Senokot S) 2 tab PO BID PRN PRN Reason: Constipation Sodium Chloride (Flush - Normal Saline) 10 ml IVF Q12HR [facility] Last Admin: 12/16/17 08:58 Dose: 10 ml Sodium Chloride (Flush - Normal Saline) 10 ml IVF PRN PRN PRN Reason: Saline Flush
--- NOTE | 2017-12-16 11:28 | PRG ---
DATE OF SERVICE: 12/16/2017 OBJECTIVE: Patient is sleeping. She was easily awakened, seem to be doing fine. She had no acute c omplaints. PHYSICAL EXAMINATION: VITAL SIGNS: Temperature is 97.8, pulse 65, blood pressure 160/70, O2 sat 90% on 3 liters. HEENT: Unremarkable. NECK: No JVD. LUNGS: Diminished, but clear breath sounds. CARDIOVASCULAR: S1, S2 regular. ABDOMEN: Soft. EXTREMITIES: Severe muscle wasting. ASSESSMENT: Chronic obstructive pulmonary disease exacerbation, chronic hypoxic and hypercapnic resp iratory failure. PLAN: She is probably about as close to baseline as she is going to be. Next step would be placemen t that may be problematic given the fact the patient will need a Trilogy noninvasive ventilator. I luda freed highly advise LTAC if the family does not want to go in the direction of hospice. We will discu ss with case management tomorrow.
[2017-12-16] MEDS: Acetaminophen 325 MG TAB PO PRN ×2 (17:44→23:40)
[2017-12-17 04:55] LABS: BUN (Urea Nitrogen) 31 mg/dL (9.8-20.1); Calc. Creatinine Clearance 68 mL/min (70-130); Calcium 10.2 mg/dL (7.8-10.44); Estimated GFR-MDRD 66; Glucose 136 mg/dL (83-110)
[2017-12-17 05:04] LABS: Anion Gap 14 mmol/L (10-20); Chloride 90 mmol/L (98-107); Sodium 140 mmol/L (136-145)
[2017-12-17 05:06] LABS: Carbon Dioxide 41 mmol/L (23-31)
[2017-12-17] MEDS: Acetaminophen 325 MG TAB PO PRN ×3 (07:10→20:44)
[2017-12-17] MEDS: Mometasone/Formoterol 120 PUFF INHALER INH SCH ×2 (07:26→18:43)
[2017-12-17] MEDS: Clopidogrel Bisulfate 75 MG TAB PO SCH (08:54)
[2017-12-17] MEDS: Digoxin 0.125 MG TAB PO SCH (08:54)
[2017-12-17] MEDS: Anastrozole 1 MG TAB PO SCH (08:54)
[2017-12-17] MEDS: Diltiazem HCl SR 60 mg Capsule PO SCH ×3 (08:54→20:37)
[2017-12-17] MEDS: Heparin 5,000 UNITS/ML VIAL SC SCH ×3 (08:55→20:37)
[2017-12-17] MEDS: Furosemide 20 MG TAB PO SCH (08:55)
--- NOTE | 2017-12-17 09:28 | PRG ---
DATE OF SERVICE: 12/17/2017 The patient is up in a chair, seems to be doing reasonably well. She is still wearing BiPAP at night . PHYSICAL EXAMINATION: VITAL SIGNS: Temperature 97.9, pulse 73, respirations 14, O2 sat 95% on 3 liters, blood pressure 152 /76. HEENT: Unremarkable. NECK: No JVD. LUNGS: Clear, but distant breath sounds. CARDIAC: S1 and S2 regular. ABDOMEN: Soft. EXTREMITIES: No edema. LABORATORY DATA: Sodium 140, potassium 5, chloride 90, CO2 41, BUN 31, creatinine 0.8, glucose 136. ASSESSMENT: End-stage chronic obstructive pulmonary disease with chronic hypoxic and hypercapnic res piratory failure. PLAN: Continue BiPAP at night. We are working on getting her Trilogy ventilator. After that point, she will probably need to be sent to either an LTAC, rehab, or a retirement.
--- NOTE | 2017-12-17 14:39 | PDOC.PN ---
- Subjective Encounter Start Date: 12/17/17 Encounter Start Time: 13:35 -: old records requested/rev Pt seen and examined, chart reviewed in its entirety, this is my first visit with this patient follow up for: No F/C, no N/V/D/C, no CP or SOB All systems reviewed and neg x as per HPI - Objective Resuscitation Status: Resuscitation Status FULL:Full Resuscitation Vital Signs & Weight: Vital Signs (12 hours) Temp Pulse Pulse Pulse Resp BP BP 12/17/17 12:57 77 24 H 12/17/17 12:23 98.6 F 65 20 12/17/17 10:10 64 66 159/70 H 155/72 H 12/17/17 08:54 69 12/17/17 07:56 12/17/17 07:50 97.9 F 73 14 12/17/17 07:25 76 22 H 12/17/17 04:00 97.6 F 55 L 19 BP Pulse Ox Pulse Ox Pulse Ox 12/17/17 12:57 82 L 12/17/17 12:23 159/78 H 93 L 12/17/17 10:10 90 L 91 L 12/17/17 08:54 12/17/17 07:56 95 12/17/17 07:50 152/76 H 95 12/17/17 07:25 85 L 12/17/17 04:00 128/58 L 97 Weight Admit Weight 167 lb Weight 157 lb 4.8 oz I&O: 12/16/17 12/17/17 12/18/17 06:59 06:59 06:59 Intake Total 2360 1840 Balance 2360 1840 Result Diagrams: 12/10/17 04:40 12/17/17 03:56 Phys Exam - Physical Examination Constitutional: NAD HEENT: PERRLA, moist MMs, sclera anicteric, oral pharynx no lesions Neck: no nodes, no JVD, supple, full ROM Respiratory: no wheezing, no rales, no rhonchi, clear to auscultation bilateral Cardiovascular: RRR, no significant murmur, no rub Gastrointestinal: soft, non-tender, no distention, positive bowel sounds Musculoskeletal: edema present Neurological: non-focal, normal sensation, moves all 4 limbs Lymphatic: no nodes Psychiatric: normal affect, A&O x 3 Skin: no rash, normal turgor, cap refill <2 seconds Dx/Plan (1) THUY (acute kidney injury) Code(s): N17.9 - ACUTE KIDNEY FAILURE, UNSPECIFIED Status: Acute Comment: Improving (2) Abnormal cardiac enzyme level Code(s): R74.8 - ABNORMAL LEVELS OF OTHER SERUM ENZYMES Status: Acute Comment: Prob due to demand ischemia (3) Acute on chronic diastolic (congestive) heart failure Code(s): I50.33 - ACUTE ON CHRONIC DIASTOLIC (CONGESTIVE) HEART FAILURE Status : Resolved Comment: resume diuretics (4) Acute respiratory failure with hypoxia and hypercapnia Code(s): J96.01 - ACUTE RESPIRATORY FAILURE WITH HYPOXIA; J96.02 - ACUTE RESPIRATORY FAILURE WITH HYPERCAPNIA Status: Acute Comment: off of Bipap.using prn (5) Atrial fibrillation Code(s): I48.91 - UNSPECIFIED ATRIAL FIBRILLATION Status: Chronic Qualifiers: Atrial fibrillation type: chronic Qualified Code(s): I48.2 - Chronic atrial fibrillation Comment: NSR.Rate controlled on digoxin and CCB (6) COPD with exacerbation Code(s): J44.1 - CHRONIC OBSTRUCTIVE PULMONARY DISEASE W (ACUTE) EXACERBATION Status: Acute (7) Chronic respiratory acidosis Code(s): E87.2 - ACIDOSIS Status: Chronic (8) DM2 (diabetes mellitus, type 2) Status: Chronic Qualifiers: Diabetes mellitus fdc insulin use: without fdc use Diabetes mellitus complication status: with kidney complications Diabetes mellitus complication detail: with chronic kidney disease Chronic kidney disease stage : stage 2 (mild) Qualified Code(s): E11.22 - Type 2 diabetes mellitus with diabetic chronic kidney disease; N18.2 - Chronic kidney disease, stage 2 (mild) (9) HTN (hypertension) Code(s): I10 - ESSENTIAL (PRIMARY) HYPERTENSION Status: Chronic Qualifiers: Hypertension type: essential hypertension Qualified Code(s): I10 - Essential (primary) hypertension - Plan cont current plan of care, PT/OT, respiratory therapy, out of bed/ambulate * . continue PRN bipap until we have approval for trilogy at [facility] or LTAC
[2017-12-18] MEDS: Acetaminophen 325 MG TAB PO PRN (07:50)
[2017-12-18] MEDS: Mometasone/Formoterol 120 PUFF INHALER INH SCH ×2 (08:19→18:43)
[2017-12-18] MEDS: Anastrozole 1 MG TAB PO SCH (10:34)
[2017-12-18] MEDS: Digoxin 0.125 MG TAB PO SCH (10:34)
[2017-12-18] MEDS: Heparin 5,000 UNITS/ML VIAL SC SCH ×3 (10:34→21:09)
[2017-12-18] MEDS: Furosemide 20 MG TAB PO SCH (10:34)
[2017-12-18] MEDS: Clopidogrel Bisulfate 75 MG TAB PO SCH (10:34)
--- NOTE | 2017-12-18 10:37 | PRG ---
DATE OF SERVICE: 12/18/2017 The patient is up in a chair, seems to be doing reasonably well. PHYSICAL EXAMINATION: VITAL SIGNS: Temperature 97.8, pulse 79, respirations 15, O2 sat 99%, blood pressure 134/88. HEENT: Unremarkable. NECK: No JVD. CHEST: Diminished breath sounds bilaterally. CARDIAC: S1 and S2 regular. ABDOMEN: Soft. EXTREMITIES: No edema. ASSESSMENT: 1. End-stage chronic obstructive pulmonary disease. 2. Chronic hypoxic and hypercapnic respiratory failure. PLAN: Continuing BiPAP therapy at night, waiting for Trilogy. Likely we will need LTAC or nursing h ome at discharge. I reviewed her medications. Nothing to change on medications at this time.
[2017-12-18] MEDS: Diltiazem HCl SR 60 mg Capsule PO SCH (10:46)
[2017-12-19 04:50] LABS: BUN (Urea Nitrogen) 35 mg/dL (9.8-20.1); Calc. Creatinine Clearance 70 mL/min (70-130); Calcium 9.8 mg/dL (7.8-10.44); Estimated GFR-MDRD 68; Glucose 90 mg/dL (83-110); Magnesium 1.8 mg/dL (1.6-2.6)
[2017-12-19 04:54] LABS: #Eosinphils 0.2 thou/uL (0.0-0.7); #Lymphocytes 0.8 thou/uL (1.20-3.40); #Monocytes 0.6 thou/uL (0.11-0.59); #Neutrophils 3.5 thou/uL (1.40-6.50); %Basophils 0.7 % (0.0-1.0); %Eosinophils 4.2 % (0.0-10.0); %Lymphocytes 15.7 % (21.0-51.0); %Neutrophils 68.3 % (42.0-75.0); Hemoglobin 9.2 g/dL (12.0-16.0); Mean Corpuscular HGB CONC 30.1 g/dL (32.0-36.0); Mean Corpuscular Hemoglobin 29.3 pg (27.0-31.0); Mean Corpuscular Volume 97.6 fL (78.0-98.0); Mean Platelet Volume 8.3 fL (7.4-10.4); Platelet Count 165 thou/uL (130-400); RBC Distribution Width 14.6 % (11.5-14.5); Red Blood Cell (RBC) Count 3.13 mill/uL (4.20-5.40); White Blood Cell (WBC) Count 5.2 thou/uL (4.8-10.8)
[2017-12-19 05:00] LABS: Anion Gap 12 mmol/L (10-20); Chloride 89 mmol/L (98-107); Potassium 4.8 mmol/L (3.5-5.1); Sodium 138 mmol/L (136-145)
[2017-12-19 05:04] LABS: Carbon Dioxide 42 mmol/L (23-31)
[2017-12-19 05:47] VITALS: BMI 28.0
[2017-12-19] MEDS: Mometasone/Formoterol 120 PUFF INHALER INH SCH (07:22)
[2017-12-19] MEDS: Clopidogrel Bisulfate 75 MG TAB PO SCH (08:24)
[2017-12-19] MEDS: Anastrozole 1 MG TAB PO SCH (08:24)
[2017-12-19] MEDS: Digoxin 0.125 MG TAB PO SCH (08:24)
[2017-12-19] MEDS: Heparin 5,000 UNITS/ML VIAL SC SCH ×2 (08:30→16:13)
--- NOTE | 2017-12-19 08:33 | PRG ---
DATE OF SERVICE: 12/19/2017 The patient is about the same. There have been no significant events overnight. PHYSICAL EXAMINATION: VITAL SIGNS: Temperature is 98.5, pulse 67, respirations 20, O2 sat 89% on 4 liters, blood pressure 158/81. HEENT: Unremarkable. NECK: No adenopathy or JVD. LUNGS: Diminished, but clear breath sounds. CARDIOVASCULAR: S1, S2 regular. ABDOMEN: Soft. EXTREMITIES: No edema. LABORATORY DATA: White blood cell count 5.2, hematocrit 30.6, platelet count 165. Sodium 138, potas sium 4.8, chloride 89, CO2 42, BUN 35, creatinine 0.8, glucose 90. ASSESSMENT: 1. End-stage chronic obstructive pulmonary disease. 2. Chronic hypoxic and hypercapnic respiratory failure. PLAN: Awaiting placement. Continue noninvasive ventilation at night. We should contemplate stoppin g the Lasix and using Diamox instead given the development of chronic metabolic alkalosis.
[2017-12-19] MEDS ORDERED: AcetaZOLAMIDE 250 MG TAB PO SCH (09:00)
[2017-12-19 16:20] VITALS: BP 123/48; TEMP 99
== END 2017-12-19 18:13 | DRG 166 ==
LOC: ERS 12:15 → IMCU/EMU 16:06
PROVIDERS: ADMIT Internal Medicine; ATTEND Internal Medicine
PROC: 5A09457 Assistance with Respiratory Ventilation, 24-96 Consecutive Hours, Continuous Positive Airway Pressure (ICD-10-PCS; 2017-12-02)
PROC: 0PB13ZX Excision of 1 to 2 Ribs, Percutaneous Approach, Diagnostic (ICD-10-PCS; principal; 2017-12-05)
DX: J96.22 Acute and chronic respiratory failure with hypercapnia (principal); I50.33 Acute on chronic diastolic (congestive) heart failure; J44.1 Chronic obstructive pulmonary disease with (acute) exacerbation; I13.0 Hypertensive heart and chronic kidney disease with heart failure and stage 1 through stage 4 chronic kidney disease, or unspecified chronic kidney disease; N17.9 Acute kidney failure, unspecified; E87.2 Acidosis; E87.3 Alkalosis; C79.51 Secondary malignant neoplasm of bone; C78.00 Secondary malignant neoplasm of unspecified lung; J96.21 Acute and chronic respiratory failure with hypoxia; Z99.81 Dependence on supplemental oxygen; E11.22 Type 2 diabetes mellitus with diabetic chronic kidney disease; N18.3 Chronic kidney disease, stage 3 (moderate); R74.8 Abnormal levels of other serum enzymes; I48.2 Chronic atrial fibrillation; E87.5 Hyperkalemia; C50.911 Malignant neoplasm of unspecified site of right female breast; M81.0 Age-related osteoporosis without current pathological fracture; Z87.891 Personal history of nicotine dependence
CPT/HCPCS: 32405; 36415; 71045; 71275; 77012; 80048; 80053; 80069; 80162; 82553; 82805; 83605; 83735; 83880; 84100; 84443; 84484; 85025; 85379; 87040; 87077; 87149; 88305; 88333; 88341; 88342; 88361; 93005; 93306; 93798; 94660; 94760; 96365; 96366; 96367; 96375; G8978-GP-CK; G8978-GP-CL; G8979-GP-CI; G8996-GN-CI; G8997-GN-CH; J0131; J0360; J0692; J1644; J1940; J1956; J2920; J2930; J3370; J7050; J7611; J7620

== ENCOUNTER 2017-12-24 12:23 | Inpatient (IN) | payer MEDICARE ==
[2017-12-24 12:52] LABS: #Eosinphils 0.1 thou/uL (0.0-0.7); #Lymphocytes 0.4 thou/uL (1.20-3.40); #Monocytes 0.4 thou/uL (0.11-0.59); %Eosinophils 2.1 % (0.0-10.0); %Lymphocytes 8.2 % (21.0-51.0); %Monocytes 8.8 % (0.0-10.0); %Neutrophils 80.9 % (42.0-75.0); Hemoglobin 8.7 g/dL (12.0-16.0); Mean Corpuscular HGB CONC 30.1 g/dL (32.0-36.0); Mean Corpuscular Hemoglobin 29.4 pg (27.0-31.0); Mean Corpuscular Volume 97.7 fL (78.0-98.0); Mean Platelet Volume 8.8 fL (7.4-10.4); Platelet Count 153 thou/uL (130-400); RBC Distribution Width 15.1 % (11.5-14.5); Red Blood Cell (RBC) Count 2.97 mill/uL (4.20-5.40); White Blood Cell (WBC) Count 4.9 thou/uL (4.8-10.8)
[2017-12-24] MEDS ORDERED: methylPREDNISolone Sod Succ/PF 125 MG/2 ML VIAL ONE (13:00)
[2017-12-24 13:14] LABS: ALT (SGPT) 10 U/L (8-55); AST (SGOT) 13 U/L (5-34); Albumin 3.3 g/dL (3.4-4.8); Alkaline Phosphatase 74 U/L (40-150); BUN (Urea Nitrogen) 39 mg/dL (9.8-20.1); Bilirubin, Total 0.2 mg/dL (0.2-1.2); Calc. Creatinine Clearance 0 mL/min (70-130); Calcium 9.8 mg/dL (7.8-10.44); Estimated GFR-MDRD 49; Globulin 3.9 g/dL (2.4-3.5); Glucose 165 mg/dL (83-110); Protein, Total 7.2 g/dL (6.0-8.3)
[2017-12-24 13:17] LABS: CKMB 2.6 ng/mL (0-6.6); Troponin I 0.082 ng/mL (< 0.028)
[2017-12-24 13:23] LABS: Base Excess-Venous 12.5 mmol/L (0 (+/- 2.5)); Bicarbonate (HCO3v) 37.8 mmol/L (1.0-85.0); CO2 Tension (PvCO2) 51.8 mmHg (41.0-51.0); Calcium, Ionized 1.12 mmol/L (1.12-1.32); Hemoglobin - Calc 10.1 g/dL (12.0-18.0); O2 Tension (PvO2) 63.3 mmHg (35.0-45.0); Potassium 5.6 mmol/L (3.4-4.7); T. Carbon Dioxide 39.4 mmol/L (1.0-85.0); pH (Venous) 7.471 (7.35-7.45); vO2 Saturation-calc 92.7 % (94-98)
[2017-12-24 13:27] LABS: Chloride 93 mmol/L (98-107); Potassium 5.1 mmol/L (3.5-5.1); Sodium 135 mmol/L (136-145)
[2017-12-24 13:30] LABS: Anion Gap 8 mmol/L (10-20); Carbon Dioxide 39 mmol/L (23-31)
--- NOTE | 2017-12-24 14:07 | RAD ---
AP CHEST: History: Bradycardia. Respiratory failure. Shortness of breath. Chest pain. Date: 12-24-17 Comparison: Earlier in the day. FINDINGS: AP chest demonstrates EKG leads seen over the chest. There is marked cardiomegaly seen. Extensive pul monary vascular congestion is seen. There are diffuse airspace opacities throughout the lungs, compatible with possible pulmonary edema o r pneumonia. There also appears to be some blunting of the left costophrenic angle compatible with po ssible small left sided pleural effusion. IMPRESSION: Cardiomegaly. Pulmonary vascular congestion and airspace opacities concerning of pulmonary edema or b ilateral pneumonia. POS: [facility]
--- NOTE | 2017-12-24 16:20 | HP ---
PRIMARY CARE PHYSICIAN: [facility] call admission. REASON FOR ADMISSION: Transfer from inpatient rehabilitation for hypoxic respiratory failure. HISTORY OF PRESENT ILLNESS: A 72-year-old female who was recently admitted in our hospital on 2017. She stayed in the hospital up until 12/19/2017 and subsequently she was discharged to rehab [facility]. During that admission, Pulmonary Group and Oncology Group were consulted. The patient does have underlying history of severe COPD as well as chronic respiratory failure with h ypoxia. [facility], [facility] was [facility]. Patient was not maintaining her oxygen saturation with nasal cannula and that is why at rehab facility they started on the CPAP. Even after that, sabra cuadra was hypoxic and that is why they sent her to the emergency room for evaluation. As per report, patient did not have any fever or chills. She does have chronic dyspnea and fatigue. When patient a rrived to emergency room, at that time, patient was a little bit lethargic, but arousable. She was n ot providing any good history. As per report, patient did not have any UTI symptoms. She was hemody namically stable other than hypoxia. Patient was relatively stable. Her routine blood tests showed hyperkalemia, indeterminant troponin, elevated BNP. This patient had echocardiography, which showed moderate aortic stenosis, severe tricuspid regurgitat ion and pulmonary regurgitation. She had a pulmonary function test which showed very severe COPD sabra salazar, very severe reduction in diffusing capacity. She had a lung biopsy which showed metastatic melani ast cancer. REVIEW OF SYSTEMS: The following complete review of systems was negative, unless otherwise mentioned in the HPI or below: Constitutional: Weight loss or gain, ability to conduct usual activities. Skin: Rash, itching. Eyes: Double vision, pain. ENT/Mouth: Nose bleeding, neck stiffness, pain, tenderness. Cardiovascular: Palpitations, dyspnea on exertion, orthopnea. Respiratory: Shortness of breath, wheezing, cough, hemoptysis, fever or night sweats. Gastrointestinal: Poor appetite, abdominal pain, heartburn, nausea, vomiting, constipation, or diarr hea. Genitourinary: Urgency, frequency, dysuria, nocturia. Musculoskeletal: Pain, swelling. Neurologic/Psychiatric: Anxiety, depression. Allergy/Immunologic: Skin rash, bleeding tendency. Please see my HPI for pertinent positive and negative. All other review of systems reviewed and nega tive except as mentioned in the HPI. PAST MEDICAL HISTORY: Invasive ductal carcinoma of right breast on anastrozole, metastatic breast ca ncer, severe COPD, chronic respiratory failure with hypoxia on oxygen, chronic diastolic heart failur e, moderate aortic stenosis, severe tricuspid regurgitation, pulmonary regurgitation, osteoporosis, h ypertension, paroxysmal atrial fibrillation, diabetes type 2, physical deconditioning. PAST SURGICAL HISTORY: Lumpectomy of the right breast, tonsillectomy. PAST PSYCHIATRIC HISTORY: Reviewed and negative. SOCIAL HISTORY: Patient currently from rehabilitation facility. No history of tobacco, alcohol or i llicit drug abuse. She is an ex-smoker. She quit smoking few years ago. She does not have any expo sure to chemicals, dust asbestos or tuberculosis. ALLERGIES: ASPIRIN, ERYTHROMYCIN, CODEINE, XARELTO, PRADAXA, COUMADIN. FAMILY HISTORY: Mother had breast cancer, no family history of coronary artery disease or stroke. CURRENT HOME MEDICATIONS: The patient was discharged on rehab on following medications; anastrozole 1 mg daily, aspirin 81 mg daily, Plavix 75 mg daily, digoxin 0.125 mg daily, Advair inhalation b.i.d. , DuoNeb q.6 hourly, metformin 500 mg p.o. b.i.d., Daliresp 500 mcg p.o. daily, nitroglycerin p.r.n. basis, acetazolamide 250 mg daily, clonidine 0.1 mg q.4 hourly p.r.n., Cardizem CD 180 mg daily. EMERGENCY ROOM COURSE: Patient is given Levaquin 750 mg, Solu-Medrol 125 mg, DuoNeb therapy, IV flui d. PHYSICAL EXAMINATION: VITAL SIGNS: Currently, blood pressure 129/48, pulse 63, respiratory rate 23, temperature 97.3, satu ration 90% on BiPAP, weight 82.9 kilograms. GENERAL: The patient is currently in mild to moderate respiratory distress. HEAD: Normocephalic, atraumatic. EYES: Pupils round, reactive to light. Extraocular muscle intact. ENT: Oropharynx within normal limits. Moist mucous membranes. No oral lesion, no pharyngeal erythe ma, no exudate. NECK: Supple. No JVD. LUNGS: Bibasilar rales noted. Reduced air entry. No accessory muscles of respiration in use. CARDIAC: S1, S2, slightly irregular. Systolic murmur noted at the lower left sternal border as well as left upper sternal border. ABDOMEN: Soft, bowel sounds present, nontender, nondistended. No organomegaly, no mass, no suprapub ic tenderness. BACK: Unremarkable, no CVA tenderness. EXTREMITIES: Upper extremity passive movements of all joints are normal. Lower extremities, bilater al lower extremity edema with chronic skin changes noted. SKIN: Chronic venous insufficiency noted on the lower extremity. NEUROLOGIC: Grossly nonfocal examination. She is arousable. Her speech is normal. She moves all 4 limbs. Plantar bilateral flexor. SIGNIFICANT LABORATORY DATA AND IMAGING DATA: CBC: WBC 4.9, hemoglobin 8.7, platelet 153. VBG: pH 7.47, CO2 51.8, O2 63.3, bicarbonate 37.8. BMP: Sodium 135, potassium 5.1, chloride 93, carbon hoa xide 39, anion gap 8, BUN 39, creatinine 1.09, glucose 165, calcium 9.8. LFT: AST 13, ALT 10, alkal ine phosphatase 74, albumin 3.3, CK-MB 2.6, troponin 0.082. BNP 260.4. Chest x-ray based on my revi ew, cardiomegaly, pulmonary vascular congestion, bibasilar infiltration. EKG showing RBBB with PVCs. ASSESSMENT AND PLAN/IMPRESSION: 1. Acute on chronic respiratory failure with hypoxia and hypercapnia. 2. Acute on chronic diastolic heart failure, stage C. 3. Chronic obstructive pulmonary disease exacerbation. 4. Bilateral pneumonia, healthcare associated suspecting gram positive cocci and gram negative doc. 5. Chronically elevated troponin. 6. Chronic atrial fibrillation. 7. Diabetes type 2. 8. Moderate aortic stenosis with severe tricuspid regurgitation and moderate pulmonary valve regurgi tation based on previous echocardiography. 9. Metastatic invasive ductal carcinoma of the breast, on hormonal therapy. 10. Physical deconditioning. PLAN: 1. Admission to [facility] mine expert will be consulted, Solu-Medrol 40 mg IV q.6 hours. Aggressive sc josh diabetes, hyperglycemia protocol treatment. Empiric antibiotic therapy with vancomycin and Levaq uin. Vancomycin dose will be adjusted by pharmacy. We will resume aspirin, anastrozole, Plavix, dig oxin as per previous medication. Continue daily wraps, metformin, Cardizem CD. This patient might h ave component of carcinoma as well as severe COPD that makes her prognosis extremely poor. 2. Deep venous thrombosis prophylaxis, Lovenox 40 mg subcu daily. 3. Gastrointestinal prophylaxis, Protonix 40 mg p.o. daily. CODE STATUS: The patient is FULL CODE. Disposition plan based on clinical course. We are expecting patient's stay in hospital more than 2 m idnights. Plan of care discussed with the patient in detail.
[2017-12-24 17:23] LABS: Troponin I 0.087 ng/mL (< 0.028)
[2017-12-24 18:15] VITALS: BMI 30.3
[2017-12-24] MEDS ORDERED: cloNIDine 0.1 MG TAB PO PRN (18:16)
[2017-12-24] MEDS ORDERED: Cepastat Lozenges 1 LOZ PO PRN (18:16)
[2017-12-24] MEDS ORDERED: Diabetic Tussin 200 MG/10 ML UDCUP PO PRN (18:16)
[2017-12-24] MEDS ORDERED: Senokot S 8.6-50 MG TAB PO PRN (18:16)
[2017-12-24] MEDS ORDERED: Loperamide HCl 2 MG CAP PO PRN (18:16)
[2017-12-24] MEDS ORDERED: Eucerin (Mineral Oil/Petrolatum,White) 30 gm Jar TOP PRN (18:16)
[2017-12-24] MEDS ORDERED: HumaLOG 300 UNITS/3 ML VIAL SC PRN (18:16)
[2017-12-24] MEDS ORDERED: Dextrose 50% Abboject 50 ML SYRINGE SLOW IVP PRN (18:16)
[2017-12-24] MEDS ORDERED: Sodium Chloride 0.65% Nasal 44 ML BOT EA NARE PRN (18:16)
[2017-12-24] MEDS ORDERED: Bisacodyl 10 MG SUPP PR PRN (18:16)
[2017-12-24] MEDS ORDERED: hydrALAZINE 20 MG/ML VIAL SLOW IVP PRN (18:16)
[2017-12-24] MEDS ORDERED: Acetaminophen 325 MG TAB PO PRN (18:16)
[2017-12-24] MEDS ORDERED: Artificial Tears 18 DROP/0.9 ML EA EYE PRN (18:16)
[2017-12-24] MEDS ORDERED: Metoclopramide HCl 10 MG/2 ML VIAL IVP PRN (18:16)
[2017-12-24] MEDS ORDERED: Bisacodyl 5 MG TAB PO PRN (18:16)
[2017-12-24] MEDS ORDERED: Loratadine 10 MG TAB PO PRN (18:16)
[2017-12-24] MEDS ORDERED: Dextrose 5% in Water 1,000 ML IV PRN (18:16)
[2017-12-24] MEDS ORDERED: Calcium Carbonate 500 MG ChewTAB PO PRN (18:16)
[2017-12-24] MEDS: Budesonide 0.5 MG/2 ML NEB INH SCH (18:39)
[2017-12-24] MEDS ORDERED: methylPREDNISolone Sod Succ/PF 125 MG/2 ML VIAL IVP SCH (18:45)
[2017-12-24] MEDS ORDERED: Vancomycin HCl 1.25 GM in Sodium Chloride 0.9% 250 ML 250 ML IVPB SCH (19:00)
[2017-12-24 19:58] LABS: Troponin I 0.098 ng/mL (< 0.028)
[2017-12-24] MEDS: guaiFENesin ER 600 MG TAB PO SCH (21:17)
[2017-12-24] MEDS ORDERED: Furosemide 40 MG/4 ML VIAL ONE (21:32)
[2017-12-24] MEDS ORDERED: Furosemide 40 MG/4 ML VIAL SLOW IVP SCH (21:45)
[2017-12-25 00:22] LABS: Bilirubin Negative (Negative); Blood, Urine Trace (Negative); Clarity CLOUDY (Clear); Glucose, Urine (Dipstick) Negative (Negative); Leukocyte Large (Negative); Nitrite Negative (Negative); Protein, Urine (Dipstick) Trace mg/dL (Neg-Trace); Specific Gravity, Urine 1.014 (1.002-1.036); Urobilinogen 0.2 mg/dL (0.2-1.0)
[2017-12-25 00:24] LABS: Bacteria/HPF 4+ HPF (None Seen); Hyaline Casts/LPF 0-3 HYALINE CAST LPF (0-3 Hyaline); Pathc Cast-AUWi Flag 0.43 (0-2.49); Squamous Epithelial 0-3 HPF (0-3)
[2017-12-25 03:47] LABS: #Basophils 0.1 thou/uL (0.0-0.2); #Lymphocytes 0.2 thou/uL (1.20-3.40); #Monocytes 0.2 thou/uL (0.11-0.59); %Basophils 1.2 % (0.0-1.0); %Eosinophils 0.5 % (0.0-10.0); %Lymphocytes 3.5 % (21.0-51.0); %Monocytes 3.2 % (0.0-10.0); %Neutrophils 91.6 % (42.0-75.0); Mean Corpuscular HGB CONC 30.6 g/dL (32.0-36.0); Mean Corpuscular Hemoglobin 30.3 pg (27.0-31.0); Mean Corpuscular Volume 98.9 fL (78.0-98.0); Platelet Count 157 thou/uL (130-400); RBC Distribution Width 15.3 % (11.5-14.5); Red Blood Cell (RBC) Count 3.29 mill/uL (4.20-5.40); White Blood Cell (WBC) Count 5.4 thou/uL (4.8-10.8)
[2017-12-25 04:06] LABS: ALT (SGPT) 12 U/L (8-55); AST (SGOT) 12 U/L (5-34); Albumin 3.7 g/dL (3.4-4.8); Alkaline Phosphatase 84 U/L (40-150); Anion Gap 11 mmol/L (10-20); BUN (Urea Nitrogen) 48 mg/dL (9.8-20.1); Bilirubin, Total 0.2 mg/dL (0.2-1.2); Calc. Creatinine Clearance 51 mL/min (70-130); Calcium 10.1 mg/dL (7.8-10.44); Carbon Dioxide 36 mmol/L (23-31); Chloride 95 mmol/L (98-107); Estimated GFR-MDRD 44; Globulin 4.4 g/dL (2.4-3.5); Glucose 178 mg/dL (83-110); Potassium 5.5 mmol/L (3.5-5.1); Protein, Total 8.1 g/dL (6.0-8.3); Sodium 136 mmol/L (136-145)
[2017-12-25] MEDS: Furosemide 20 MG/2 ML VIAL SLOW IVP SCH ×2 (05:37→15:18)
[2017-12-25] MEDS: Budesonide 0.5 MG/2 ML NEB INH SCH ×2 (07:01→18:51)
[2017-12-25] MEDS ORDERED: Vancomycin HCl 750 MG in Sodium Chloride 0.9% 250 ML 250 ML IVPB SCH (09:00)
[2017-12-25] MEDS ORDERED: AcetaZOLAMIDE 250 MG TAB PO SCH (09:00)
[2017-12-25] MEDS: Anastrozole 1 MG TAB PO SCH (09:37)
[2017-12-25] MEDS: Clopidogrel Bisulfate 75 MG TAB PO SCH (09:37)
[2017-12-25] MEDS: Digoxin 0.125 MG TAB PO SCH (09:37)
[2017-12-25] MEDS: Saccharomyces boulardii 250 MG CAP PO SCH (09:38)
[2017-12-25] MEDS: guaiFENesin ER 600 MG TAB PO SCH ×2 (09:38→20:45)
[2017-12-25] MEDS: Enoxaparin Sodium 40 MG/0.4 ML SYRINGE SC SCH (09:38)
--- NOTE | 2017-12-25 10:04 | PDOC.PN ---
- Subjective Encounter Start Date: 12/25/17 Encounter Start Time: 09:10 -: old records requested/rev Patient seen and examined. No new complaints. No overnight events pt is on bipap - Objective Resuscitation Status: Resuscitation Status FULL:Full Resuscitation MAR Reviewed: Yes Vital Signs & Weight: Vital Signs (12 hours) Temp Pulse Resp BP Pulse Ox 12/25/17 09:37 80 12/25/17 08:00 95 12/25/17 07:30 96.9 F L 57 L 35 H 126/53 L 95 12/25/17 07:03 58 L 12/25/17 07:01 57 L 24 H 96 12/25/17 04:00 96.2 F L 62 24 H 125/57 L 92 L 12/25/17 03:15 56 L 27 H 95 12/25/17 03:07 57 L 12/25/17 00:00 97.6 F 68 24 H 122/56 L 94 L Weight Weight 166 lb I&O: 12/24/17 12/25/17 12/26/17 06:59 06:59 06:59 Intake Total 410 Output Total 110 Balance 300 Result Diagrams: 12/25/17 03:34 12/25/17 03:34 Additional Labs: Accuchecks 12/25/17 12/24/17 06:11 22:52 POC Glucose 179 H 177 H EKG Reviewed by me: Yes Phys Exam - Physical Examination Constitutional: NAD on bipap HEENT: PERRLA, moist MMs, sclera anicteric Neck: no JVD, supple Respiratory: no wheezing, no rhonchi reduced air entry at base Cardiovascular: RRR, no significant murmur, no rub Gastrointestinal: soft, non-tender, no distention, positive bowel sounds Musculoskeletal: pulses present, edema present chronic skin changes Neurological: non-focal, normal sensation, moves all 4 limbs Lymphatic: no nodes Psychiatric: normal affect Skin: no rash, normal turgor Dx/Plan (1) Acute respiratory failure with hypoxia and hypercapnia Code(s): J96.01 - ACUTE RESPIRATORY FAILURE WITH HYPOXIA; J96.02 - ACUTE RESPIRATORY FAILURE WITH HYPERCAPNIA Status: Acute Comment: required bipap (2) Acute on chronic stage C diastolic heart failure Code(s): I50.33 - ACUTE ON CHRONIC DIASTOLIC (CONGESTIVE) HEART FAILURE Status : Acute Comment: on lasix IV (3) COPD exacerbation Code(s): J44.1 - CHRONIC OBSTRUCTIVE PULMONARY DISEASE W (ACUTE) EXACERBATION Status: Acute (4) Healthcare associated bacterial pneumonia Code(s): J15.9 - UNSPECIFIED BACTERIAL PNEUMONIA Status: Acute (5) Hyperkalemia Code(s): E87.5 - HYPERKALEMIA Status: Acute (6) UTI (urinary tract infection) Status: Acute (7) Atrial fibrillation Code(s): I48.91 - UNSPECIFIED ATRIAL FIBRILLATION Status: Chronic Qualifiers: Atrial fibrillation type: chronic Qualified Code(s): I48.2 - Chronic atrial fibrillation Comment: NSR.Rate controlled on digoxin and CCB (8) Chronic anticoagulation Code(s): Z79.01 - JAIL (CURRENT) USE OF ANTICOAGULANTS Status: Chronic (9) Diabetes type 2, controlled Code(s): E11.9 - TYPE 2 DIABETES MELLITUS WITHOUT COMPLICATIONS Status: Chronic (10) Elevated troponin Code(s): R79.89 - OTHER SPECIFIED ABNORMAL FINDINGS OF BLOOD CHEMISTRY Status : Chronic (11) HTN (hypertension) Code(s): I10 - ESSENTIAL (PRIMARY) HYPERTENSION Status: Chronic Qualifiers: Hypertension type: essential hypertension Qualified Code(s): I10 - Essential (primary) hypertension (12) Macrocytic anemia Code(s): D53.9 - NUTRITIONAL ANEMIA, UNSPECIFIED Status: Chronic (13) Metastatic breast cancer Code(s): C50.919 - MALIGNANT NEOPLASM OF UNSP SITE OF UNSPECIFIED FEMALE BREAST Status: Chronic (14) Obesity (BMI 30.0-34.9) Code(s): E66.9 - OBESITY, UNSPECIFIED Status: Chronic (15) Physical deconditioning Code(s): R53.81 - OTHER MALAISE Status: Chronic - Plan cont current plan of care, continue antibiotics, respiratory therapy * today will wean off bipap * continue levaquin * DC vancomycin * continue IV solumedrol * medication reviewed as below * symptomatic treatment * will consult palliative care * discussed with pulmonary. Review of Systems - Review of Systems Constitutional: weakness. negative: fever, chills, sweats, malaise, other ENT: negative: Ear Pain, Ear Discharge, Nose Pain, Nose Discharge, Nose Congestion, Mouth Pain, Mouth Swelling, Throat Pain, Throat Swelling, Other Respiratory: SOB with Excertion. negative: Cough, Dry, Shortness of Breath, Hemoptysis, Pleuritic Pain, Sputum, Wheezing Cardiovascular: negative: chest pain, palpitations, orthopnea, paroxysmal nocturnal dyspnea, edema, light headedness, other Gastrointestinal: negative: Nausea, Vomiting, Abdominal Pain, Diarrhea, Constipation, Melena, Hematochezia, Other Genitourinary: negative: Dysuria, Frequency, Incontinence, Hematuria, Retention , Other Musculoskeletal: negative: Neck Pain, Shoulder Pain, Arm Pain, Back Pain, Hand Pain, Leg Pain, Foot Pain, Other Skin: negative: Rash, Lesions, Vinayak, Bruising, Other - Medications/Allergies Allergies/Adverse Reactions: Allergies Allergy/AdvReac Type Severity Reaction Status Date / Time erythromycin base Allergy Verified 05/23/16 02:23 codeine AdvReac Intermediate NAUSEA/VOMI Verified 06/25/15 12:20 TING rivaroxaban [From Xarelto] AdvReac Intermediate EXCESSIVE Verified 06/25/15 12: 20 BRUISING aspirin AdvReac Verified 12/17/17 14:55 dabigatran etexilate mesylate AdvReac EXCESSIVE Verified 06/25/15 12:20 [From Pradaxa] BRUISING warfarin sodium AdvReac EXCESSIVE Verified 06/25/15 12:19 [From Coumadin] BRUISING Medications: Current Medications Acetaminophen (Tylenol) 650 mg PO Q4H PRN PRN Reason: Headache/Fever/Mild Pain (1-3) Acetazolamide (Diamox) 250 mg PO DAILY [facility] Last Admin: 12/25/17 09:37 Dose: 250 mg Albuterol/Ipratropium (Duoneb) 3 ml NEB [id number] [facility] Last Admin: 12/25/17 07:02 Dose: 3 ml Albuterol/Ipratropium (Duoneb) 3 ml NEB [id number] PRN PRN Reason: SOB &/or Wheezing Anastrozole (Arimidex) 1 mg PO DAILY [facility] Last Admin: 12/25/17 09:37 Dose: 1 mg Artificial Tears (Tears Naturale) 2 drop EA EYE PRN PRN PRN Reason: Dry Eyes Aspirin (Aspirin Chewable) 81 mg PO DAILY [facility] Last Admin: 12/25/17 09:37 Dose: 81 mg Bisacodyl (Dulcolax) 10 mg DC DAILYPRN PRN PRN Reason: Constipation Bisacodyl (Dulcolax) 10 mg PO DAILYPRN PRN PRN Reason: Constipation Budesonide (Pulmicort Neb Solution) 0.5 mg INH BID-RT [facility] Last Admin: 12/25/17 07:01 Dose: 0.5 mg Calcium Carbonate (Tums) 1,000 mg PO Q4H PRN PRN Reason: Heartburn or Indigestion Clonidine (Catapres) 0.1 mg PO Q4H PRN PRN Reason: SBP > ____ Clopidogrel Bisulfate (Plavix) 75 mg PO DAILY [facility] Last Admin: 12/25/17 09:37 Dose: 75 mg Dextrose/Water (Dextrose 50%) 25 gm SLOW IVP PRN PRN PRN Reason: Hypoglycemia Digoxin (Lanoxin) 0.125 mg PO DAILY [facility] Last Admin: 12/25/17 09:37 Dose: 0.125 mg Diltiazem HCl (Cardizem Cd) 180 mg PO DAILY [facility] Last Admin: 12/25/17 09:38 Dose: 180 mg Enoxaparin Sodium (Lovenox) 40 mg SC 0900 [facility] Last Admin: 12/25/17 09:38 Dose: 40 mg Furosemide (Lasix) 20 mg SLOW IVP 0600,1400 [facility] Last Admin: 12/25/17 05:37 Dose: 20 mg Glucagon (Glucagon) 1 mg IM PRN PRN PRN Reason: Hypoglycemia Guaifenesin (Mucinex) 600 mg PO Q12HR [facility] Last Admin: 12/25/17 09:38 Dose: 600 mg Guaifenesin (Robitussin Sf) 200 mg PO Q4H PRN PRN Reason: Cough Hydralazine HCl (Apresoline) 10 mg SLOW IVP Q4H PRN PRN Reason: SBP > 180 and HR < 70 Levofloxacin 750 mg/ Device 150 mls @ 100 mls/hr IVPB Q24HR [facility] Last Admin: 12/25/17 05:37 Dose: 150 mls Dextrose/Water (D5w) 1,000 mls @ 0 mls/hr IV .Q0M PRN PRN Reason: Hypoglycemia Vancomycin HCl 750 mg/ Sodium (Chloride) 250 mls @ 250 mls/hr IVPB Q12HR [facility] Last Admin: 12/25/17 09:45 Dose: 250 mls Insulin Human Lispro (Humalog) 0 units SC .AGGRESSIVE SLIDING PRN PRN Reason: Aggressive Correctional Scale Insulin Human Lispro (Humalog) 0 units SC .BEDTIME SLIDING SC PRN PRN Reason: Bedtime Correctional Scale Loperamide HCl (Imodium) 2 mg PO PRN PRN PRN Reason: Diarrhea/Loose Stools Loratadine (Claritin) 10 mg PO DAILYPRN PRN PRN Reason: Sinus Symptoms Methylprednisolone Sodium Succinate (Solu-Medrol) 40 mg IVP Q6HR [facility] Last Admin: 12/25/17 05:38 Dose: 40 mg Metoclopramide HCl (Reglan) 5 mg IVP Q4H PRN PRN Reason: Nausea Mineral Oil/White Petrolatum (Eucerin Cream) 0 gm TOP BIDPRN PRN PRN Reason: Dry Skin Miscellaneous Medication (Pharmacy To Dose) 1 each IVPB PRN PRN PRN Reason: Pharmacy to dose Pantoprazole Sodium (Protonix) 40 mg PO DAILY [facility] Last Admin: 12/25/17 09:38 Dose: 40 mg Saccharomyces Boulardii (Florastor) 250 mg PO DAILY [facility] Last Admin: 12/25/17 09:38 Dose: 250 mg Senna/Docusate Sodium (Senokot S) 2 tab PO BIDPRN PRN PRN Reason: Constipation Sodium Chloride ([place] Nasal [place] 0.65%) 0 ml EA NARE QIDPRN PRN PRN Reason: Nasal Congestion Sodium Chloride (Flush - Normal Saline) 10 ml IVF Q12HR [facility] Last Admin: 12/25/17 09:38 Dose: 10 ml Sodium Chloride (Flush - Normal Saline) 10 ml IVF PRN PRN PRN Reason: Saline Flush Last Admin: 12/25/17 05:38 Dose: 10 ml Throat Lozenges (Cepastat Lozenges) 1 karen PO Q2H PRN PRN Reason: Sore Throat
[2017-12-25] MEDS: HumaLOG 300 UNITS/3 ML VIAL SC PRN ×2 (11:45→18:25)
--- NOTE | 2017-12-25 20:38 | CON ---
DATE OF CONSULTATION: 12/25/2017 SERVICE: Pulmonary Medicine. REASON FOR CONSULTATION: Respiratory failure. HISTORY OF PRESENT ILLNESS: The patient is a 72-year-old white female with past medical history significant for advanced lung disease, deconditioning, debility, and breast cancer which is widely metastatic. She was in her usual state of health, recovering at a nursing facility. Based on her recollection, she was asked to use the restroom without any assistance. She ended up getting up and fell on two separate occasions. Her oxygen became dislodged. Ultimately , she was extremely weak, where she became a little short-winded without her oxygen. When they checked her saturations, they were in the 60s. She was placed on BiPAP, but did not recover very quickly and so, they brought her to the emergency department. Prior to this event, she reports basically being in her usual state of health. She denies any current fevers, chills, nausea, vomiting or diarrhea. She is not coughing up any new sputum. Overnight, she was placed on BiPAP. We have gotten an ABG demonstrating that we are actually over ventilating her. As such, we backed off on the pressure support, and maintained her saturations between 82 and 88%. PAST MEDICAL HISTORY: 1. Breast cancer, widely metastatic. 2. Chronic obstructive pulmonary disease, very severe. 3. Chronic hypoxic and hypercapnic respiratory failure. 4. Chronic diastolic and valvular heart failure. 5. Osteoporosis. 6. Hypertension. 7. Type 2 diabetes mellitus. 8. Atrial fibrillation, paroxysmal. 9. Severe deconditioning. PAST SURGICAL HISTORY: 1. Lumpectomy of the right breast. 2. Tonsillectomy. 3. Percutaneous lung biopsy of a pulmonary lesion. SOCIAL HISTORY: Negative for current alcohol, tobacco, or illicit drug use. She had a greater than [id number] history of smoking but quit remotely. She does not have any exposure to chemicals, dust, asbestos, or tuberculosis. FAMILY HISTORY: Noncontributory. ALLERGIES: ASPIRIN, ERYTHROMYCIN, CODEINE, XARELTO, PRADAXA, COUMADIN. MEDICATIONS: Multiple medications were reviewed. REVIEW OF SYSTEMS: General, head, ears, eyes, nose, throat, cardiovascular, respiratory, GI, , musculoskeletal, neurologic and skin is negative except as mentioned in the HPI. PHYSICAL EXAMINATION: VITAL SIGNS: Afebrile, pulse 68, blood pressure 131/64, respirations 24, saturation 86% on 4 liters nasal cannula. GENERAL: Patient is awake, alert, in no apparent distress. She does not have any accessory muscle use. HEENT: Normocephalic, atraumatic. Sclerae are white, conjunctivae pink. Oral mucosa is moist without lesions. LUNGS: Decreased air entry. There is a prolonged expiratory phase. Dependent crackles are noted. No rhonchi are appreciated. HEART: Normal rate, regular. ABDOMEN: Soft, nontender, nondistended. Bowel sounds are positive. MUSCULOSKELETAL: No cyanosis or clubbing. There is trace to 1+ pitting in the bilateral lower extremities. NEUROLOGIC: Grossly nonfocal. LABORATORY DATA: WBC 5.4, hemoglobin 10.0, platelets 157,000. PH 7.47, pCO2 of 51 on a VBG. Creatinine 1.20 and up trending. Basic metabolic profile is otherwise unremarkable except for potassium that is gently up trending to 5.5. Liver function studies are unremarkable, cardiac enzymes are gently up trending to 0.98. BNP is 260. This is actually lower than her prior hospital stay close to discharge. Urinalysis is unremarkable except for wbc's that are greater than 50 with 4+ bacteria. A gram-negative doc are growing in the urine culture. Blood culture x2 are otherwise negative. ASSESSMENT: 1. Acute on chronic hypoxic and hypercapnic respiratory failure. 2. Urinary tract infection. 3. Chronic obstructive pulmonary disease with mild exacerbation. 4. Breast cancer, widely metastatic. DISCUSSION AND PLAN: We have to once again be very careful about not providing the patient with excessive oxygen as this will cause hypoventilation. I will limit her steroids to 5 days. Antibiotics can be discontinued after total duration of 3 days. We will put her on Omnicef for the time being treating the gram-negative doc in the urine. Pulmonary Critical Care will continue to follow in the [facility] for now. 70 minutes have been devoted to this patient in various activities. I personally reviewed all imaging studies and laboratory data noted within this document. For fifty percent of this time, I was interacting with the patient at the bedside or coordinating care with the care team. For the remainder of the time I was immediately available to the patient in the hospital unit. MAHIN
[2017-12-26 04:41] LABS: BUN (Urea Nitrogen) 63 mg/dL (9.8-20.1); Calc. Creatinine Clearance 48 mL/min (70-130); Calcium 9.5 mg/dL (7.8-10.44); Estimated GFR-MDRD 41; Glucose 119 mg/dL (83-110); Magnesium 2.2 mg/dL (1.6-2.6); Phosphorus 4.3 mg/dL (2.3-4.7)
[2017-12-26 04:51] LABS: Anion Gap 14 mmol/L (10-20); Carbon Dioxide 34 mmol/L (23-31); Chloride 95 mmol/L (98-107); Sodium 138 mmol/L (136-145)
[2017-12-26] MEDS: Budesonide 0.5 MG/2 ML NEB INH SCH ×2 (07:30→18:29)
[2017-12-26] MEDS ORDERED: Furosemide 40 MG/4 ML VIAL SLOW IVP SCH (09:00)
[2017-12-26] MEDS: Clopidogrel Bisulfate 75 MG TAB PO SCH (09:20)
[2017-12-26] MEDS: Cefdinir 300 MG CAP PO SCH ×2 (09:20→20:25)
[2017-12-26] MEDS: Anastrozole 1 MG TAB PO SCH (09:20)
[2017-12-26] MEDS: Enoxaparin Sodium 40 MG/0.4 ML SYRINGE SC SCH (09:21)
[2017-12-26] MEDS: Digoxin 0.125 MG TAB PO SCH (09:21)
[2017-12-26] MEDS: predniSONE 20 MG TAB PO SCH (09:21)
[2017-12-26] MEDS: guaiFENesin ER 600 MG TAB PO SCH ×2 (09:21→20:25)
[2017-12-26] MEDS: Saccharomyces boulardii 250 MG CAP PO SCH (09:22)
--- NOTE | 2017-12-26 10:17 | PDOC.PN ---
- Subjective Encounter Start Date: 12/26/17 Encounter Start Time: 09:10 Patient seen and examined. No new complaints. No overnight events pt is now off bipap, she is feeling better - Objective Resuscitation Status: Resuscitation Status FULL:Full Resuscitation MAR Reviewed: Yes Vital Signs & Weight: Vital Signs (12 hours) Temp Pulse Resp BP Pulse Ox 12/26/17 09:21 66 12/26/17 07:55 90 L 12/26/17 07:35 97.0 F L 66 22 H 143/64 H 92 L 12/26/17 07:30 66 12/26/17 07:27 66 28 H 88 L 12/26/17 04:00 98.1 F 65 18 137/62 91 L 12/26/17 00:26 61 12/26/17 00:23 61 25 H 90 L 12/26/17 00:00 97.6 F 61 20 140/73 93 L Weight Weight 164 lb I&O: 12/25/17 12/26/17 12/27/17 06:59 06:59 06:59 Intake Total 410 940 Output Total 110 Balance 300 940 Result Diagrams: 12/25/17 03:34 12/26/17 03:39 Additional Labs: Accuchecks 12/26/17 12/25/17 12/25/17 05:32 20:12 16:25 POC Glucose 111 H 163 H 177 H 12/25/17 10:58 POC Glucose 239 H EKG Reviewed by me: Yes (nsr) Phys Exam - Physical Examination Constitutional: NAD HEENT: PERRLA, moist MMs, sclera anicteric Neck: no JVD, supple Respiratory: no wheezing, no rales, no rhonchi reduced air entry Cardiovascular: RRR, no significant murmur, no rub Gastrointestinal: soft, non-tender, no distention, positive bowel sounds Musculoskeletal: edema present chronic stasis changes Neurological: non-focal, normal sensation Lymphatic: no nodes Psychiatric: normal affect, A&O x 3 Skin: no rash, normal turgor Dx/Plan (1) Acute respiratory failure with hypoxia and hypercapnia Code(s): J96.01 - ACUTE RESPIRATORY FAILURE WITH HYPOXIA; J96.02 - ACUTE RESPIRATORY FAILURE WITH HYPERCAPNIA Status: Acute Comment: required bipap (2) Acute on chronic stage C diastolic heart failure Code(s): I50.33 - ACUTE ON CHRONIC DIASTOLIC (CONGESTIVE) HEART FAILURE Status : Acute Comment: on lasix IV (3) COPD exacerbation Code(s): J44.1 - CHRONIC OBSTRUCTIVE PULMONARY DISEASE W (ACUTE) EXACERBATION Status: Acute (4) Healthcare associated bacterial pneumonia Code(s): J15.9 - UNSPECIFIED BACTERIAL PNEUMONIA Status: Acute (5) Hyperkalemia Code(s): E87.5 - HYPERKALEMIA Status: Acute (6) UTI (urinary tract infection) Status: Acute (7) Atrial fibrillation Code(s): I48.91 - UNSPECIFIED ATRIAL FIBRILLATION Status: Chronic Qualifiers: Atrial fibrillation type: chronic Qualified Code(s): I48.2 - Chronic atrial fibrillation Comment: NSR.Rate controlled on digoxin and CCB (8) Chronic anticoagulation Code(s): Z79.01 - PRIMARY HE[employer]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 MANAGER (CURRENT) USE OF ANTICOAGULANTS Status: Chronic (9) Diabetes type 2, controlled Code(s): E11.9 - TYPE 2 DIABETES MELLITUS WITHOUT COMPLICATIONS Status: Chronic (10) Elevated troponin Code(s): R79.89 - OTHER SPECIFIED ABNORMAL FINDINGS OF BLOOD CHEMISTRY Status : Chronic (11) HTN (hypertension) Code(s): I10 - ESSENTIAL (PRIMARY) HYPERTENSION Status: Chronic Qualifiers: Hypertension type: essential hypertension Qualified Code(s): I10 - Essential (primary) hypertension (12) Macrocytic anemia Code(s): D53.9 - NUTRITIONAL ANEMIA, UNSPECIFIED Status: Chronic (13) Metastatic breast cancer Code(s): C50.919 - MALIGNANT NEOPLASM OF UNSP SITE OF UNSPECIFIED FEMALE BREAST Status: Chronic (14) Obesity (BMI 30.0-34.9) Code(s): E66.9 - OBESITY, UNSPECIFIED Status: Chronic (15) Physical deconditioning Code(s): R53.81 - OTHER MALAISE Status: Chronic - Plan cont current plan of care, continue antibiotics, PT/OT, health care social worker, respiratory therapy * based on urine culture result, will change levaquin to omnicef for UTI and possible penumonia * medication reviewed as below * symptomatic treatment * will monitor today * expecting discharge back to rehab tomorrow. * solumedrol changed to po prednisone * lasix changed to po Review of Systems - Review of Systems Constitutional: weakness. negative: fever, chills, sweats, malaise, other ENT: negative: Ear Pain, Ear Discharge, Nose Pain, Nose Discharge, Nose Congestion, Mouth Pain, Mouth Swelling, Throat Pain, Throat Swelling, Other Respiratory: negative: Cough, Dry, Shortness of Breath, Hemoptysis, SOB with Excertion, Pleuritic Pain, Sputum, Wheezing Cardiovascular: negative: chest pain, palpitations, orthopnea, paroxysmal nocturnal dyspnea, edema, light headedness, other Gastrointestinal: negative: Nausea, Vomiting, Abdominal Pain, Diarrhea, Constipation, Melena, Hematochezia, Other Genitourinary: negative: Dysuria, Frequency, Incontinence, Hematuria, Retention , Other Musculoskeletal: negative: Neck Pain, Shoulder Pain, Arm Pain, Back Pain, Hand Pain, Leg Pain, Foot Pain, Other - Medications/Allergies Allergies/Adverse Reactions: Allergies Allergy/AdvReac Type Severity Reaction Status Date / Time erythromycin base Allergy Verified 05/23/16 02:23 codeine AdvReac Intermediate NAUSEA/VOMI Verified 06/25/15 12:20 TING rivaroxaban [From Xarelto] AdvReac Intermediate EXCESSIVE Verified 06/25/15 12: 20 BRUISING aspirin AdvReac Verified 12/17/17 14:55 dabigatran etexilate mesylate AdvReac EXCESSIVE Verified 06/25/15 12:20 [From Pradaxa] BRUISING warfarin sodium AdvReac EXCESSIVE Verified 06/25/15 12:19 [From Coumadin] BRUISING Medications: Current Medications Acetaminophen (Tylenol) 650 mg PO Q4H PRN PRN Reason: Headache/Fever/Mild Pain (1-3) Albuterol/Ipratropium (Duoneb) 3 ml NEB [id number] PRN PRN Reason: SOB &/or Wheezing Albuterol/Ipratropium (Duoneb) 3 ml NEB [id number] [facility] Last Admin: 12/26/17 07:27 Dose: 3 ml Anastrozole (Arimidex) 1 mg PO DAILY [facility] Last Admin: 12/26/17 09:20 Dose: 1 mg Artificial Tears (Tears Naturale) 2 drop EA EYE PRN PRN PRN Reason: Dry Eyes Aspirin (Aspirin Chewable) 81 mg PO DAILY [facility] Last Admin: 12/26/17 09:20 Dose: 81 mg Bisacodyl (Dulcolax) 10 mg WI DAILYPRN PRN PRN Reason: Constipation Bisacodyl (Dulcolax) 10 mg PO DAILYPRN PRN PRN Reason: Constipation Budesonide (Pulmicort Neb Solution) 0.5 mg INH BID-RT [facility] Last Admin: 12/26/17 07:30 Dose: 0.5 mg Calcium Carbonate (Tums) 1,000 mg PO Q4H PRN PRN Reason: Heartburn or Indigestion Cefdinir (Omnicef) 300 mg PO BID [facility] Last Admin: 12/26/17 09:20 Dose: 300 mg Clonidine (Catapres) 0.1 mg PO Q4H PRN PRN Reason: SBP > ____ Clopidogrel Bisulfate (Plavix) 75 mg PO DAILY [facility] Last Admin: 12/26/17 09:20 Dose: 75 mg Dextrose/Water (Dextrose 50%) 25 gm SLOW IVP PRN PRN PRN Reason: Hypoglycemia Digoxin (Lanoxin) 0.125 mg PO DAILY [facility] Last Admin: 12/26/17 09:21 Dose: 0.125 mg Diltiazem HCl (Cardizem Cd) 180 mg PO DAILY [facility] Last Admin: 12/26/17 09:21 Dose: 180 mg Enoxaparin Sodium (Lovenox) 40 mg SC 0900 [facility] Last Admin: 12/26/17 09:21 Dose: 40 mg Furosemide (Lasix) 40 mg PO DAILY[facility] Glucagon (Glucagon) 1 mg IM PRN PRN PRN Reason: Hypoglycemia Guaifenesin (Mucinex) 600 mg PO Q12HR [facility] Last Admin: 12/26/17 09:21 Dose: 600 mg Guaifenesin (Robitussin Sf) 200 mg PO Q4H PRN PRN Reason: Cough Hydralazine HCl (Apresoline) 10 mg SLOW IVP Q4H PRN PRN Reason: SBP > 180 and HR < 70 Dextrose/Water (D5w) 1,000 mls @ 0 mls/hr IV .Q0M PRN PRN Reason: Hypoglycemia Insulin Human Lispro (Humalog) 0 units SC .AGGRESSIVE SLIDING PRN PRN Reason: Aggressive Correctional Scale Last Admin: 12/25/17 18:25 Dose: 3 unit Insulin Human Lispro (Humalog) 0 units SC .BEDTIME SLIDING SC PRN PRN Reason: Bedtime Correctional Scale Loperamide HCl (Imodium) 2 mg PO PRN PRN PRN Reason: Diarrhea/Loose Stools Loratadine (Claritin) 10 mg PO DAILYPRN PRN PRN Reason: Sinus Symptoms Metoclopramide HCl (Reglan) 5 mg IVP Q4H PRN PRN Reason: Nausea Mineral Oil/White Petrolatum (Eucerin Cream) 0 gm TOP BIDPRN PRN PRN Reason: Dry Skin Pantoprazole Sodium (Protonix) 40 mg PO DAILY [facility] Last Admin: 12/26/17 09:21 Dose: 40 mg Prednisone (Prednisone) 40 mg PO DAILY [facility] Stop: 12/29/17 09:01 Last Admin: 12/26/17 09:21 Dose: 40 mg Saccharomyces Boulardii (Florastor) 250 mg PO DAILY [facility] Last Admin: 12/26/17 09:22 Dose: 250 mg Senna/Docusate Sodium (Senokot S) 2 tab PO BIDPRN PRN PRN Reason: Constipation Sodium Chloride ([place]y Nasal [place] 0.65%) 0 ml EA NARE QIDPRN PRN PRN Reason: Nasal Congestion Sodium Chloride (Flush - Normal Saline) 10 ml IVF Q12HR [facility] Last Admin: 12/26/17 09:22 Dose: 10 ml Sodium Chloride (Flush - Normal Saline) 10 ml IVF PRN PRN PRN Reason: Saline Flush Last Admin: 12/25/17 05:38 Dose: 10 ml Throat Lozenges (Cepastat Lozenges) 1 karen PO Q2H PRN PRN Reason: Sore Throat
--- NOTE | 2017-12-26 14:28 | PRG ---
DATE OF SERVICE: 12/26/2017 SERVICE: Pulmonary Medicine. INTERVAL HISTORY: The patient is doing great from a respiratory standpoint. Denies any current ches t pain, fevers, chills, shortness of breath. Her asterixis is much better. Yesterday, she was dropp ing everything. Today, she is having less issues. Otherwise, there has been no interval change to h er condition. I had a chance to sit down and chat with her for a while. Ultimately, from my perspec tive, if she were to ever become intubated more than 24-48 hours, it is a very strong likelihood she would be too weak to successfully extubate. Under those circumstances, tracheostomy and PEG tube wou ld be required. That being said, the patient is not interested in ever having those procedures done. As such, it does not make sense to perform an intubation. After discussing risks and benefits of a n intubation and the fact that she would not want to make her children decide whether or not to extub ate her terminally, she has decided to transition over to being a DNI/DNR. She understands that we a re going to make every effort at recovering her. We got additional information from the nursing faci chelsey. I requested a download off her unit. She did not use her invasive ventilator for a full 48 ho urs before her respiratory failure event. PHYSICAL EXAMINATION: VITAL SIGNS: Afebrile, pulse 67, blood pressure 137/71, respirations 20, saturation 87% on 4 liters nasal cannula. GENERAL: The patient is awake and alert, in no apparent distress. LUNGS: Decent air entry. There is a prolonged expiratory phase, but no crackles appreciated. Rhonc hi are present. HEART: Normal rate, regular. ABDOMEN: Soft, nontender, nondistended. Bowel sounds are positive. MUSCULOSKELETAL: No cyanosis or clubbing. There is no pitting in the bilateral lower extremities. NEUROLOGIC: Grossly nonfocal. LABORATORY DATA: Creatinine 1.28 and up trending, BUN 63 and up trending. Basic metabolic profile i s otherwise unremarkable. Magnesium and phosphorus fall within the normal limits. E. coli is growin g in the urine and it is sensitive to third generation cephalosporins. Blood cultures are negative x 2. ASSESSMENT: 1. Acute on chronic hypoxic and hypercapnic respiratory failure secondary to ventilator noncomplianc e. 2. Urinary tract infection. 3. Chronic obstructive pulmonary disease with mild exacerbation. 4. Breast cancer, widely metastatic. DISCUSSION AND PLAN: We have transitioned the patient to a DNI/DNR as detailed above. We will toñito nue to use the BiPAP for as needed daytime use. It is imperative that she wears this thing at night. If she chooses not to wear this thing moving forward, we may need to discuss hospice with her as th at choice would be incongruent with life. Omnicef can be discontinued after a total duration of 3 da ys, treating an uncomplicated urinary tract infection.
[2017-12-27 04:58] LABS: Anion Gap 11 mmol/L (10-20); BUN (Urea Nitrogen) 64 mg/dL (9.8-20.1); Calc. Creatinine Clearance 50 mL/min (70-130); Calcium 9.2 mg/dL (7.8-10.44); Carbon Dioxide 36 mmol/L (23-31); Chloride 96 mmol/L (98-107); Estimated GFR-MDRD 43; Glucose 113 mg/dL (83-110); Potassium 5.1 mmol/L (3.5-5.1); Sodium 138 mmol/L (136-145)
[2017-12-27] MEDS: Budesonide 0.5 MG/2 ML NEB INH SCH ×2 (07:35→18:27)
[2017-12-27] MEDS: guaiFENesin ER 600 MG TAB PO SCH ×2 (09:11→20:18)
[2017-12-27] MEDS: Saccharomyces boulardii 250 MG CAP PO SCH (09:11)
[2017-12-27] MEDS: Furosemide 40 MG TAB PO SCH (09:11)
[2017-12-27] MEDS: Anastrozole 1 MG TAB PO SCH (09:11)
[2017-12-27] MEDS: Enoxaparin Sodium 40 MG/0.4 ML SYRINGE SC SCH (09:11)
[2017-12-27] MEDS: Cefdinir 300 MG CAP PO SCH ×2 (09:11→20:18)
[2017-12-27] MEDS: Digoxin 0.125 MG TAB PO SCH (09:11)
[2017-12-27] MEDS: predniSONE 20 MG TAB PO SCH (09:11)
[2017-12-27] MEDS: Clopidogrel Bisulfate 75 MG TAB PO SCH (09:11)
--- NOTE | 2017-12-27 10:19 | PDOC.PN ---
- Subjective Encounter Start Date: 12/27/17 Encounter Start Time: 09:20 pt was on bipap this morning, she is otherwise feeling ok - Objective Resuscitation Status: Resuscitation Status DNR:Do Not Resuscitate MAR Reviewed: Yes Vital Signs & Weight: Vital Signs (12 hours) Temp Pulse Resp BP Pulse Ox 12/27/17 09:11 71 12/27/17 07:33 71 27 H 90 L 12/27/17 07:32 90 L 12/27/17 07:30 72 12/27/17 07:26 97.4 F L 91 28 H 113/64 85 L 12/27/17 04:00 70 24 H 120/66 82 L 12/27/17 00:21 74 20 92 L 12/27/17 00:00 96.8 F L 74 22 H 140/60 92 L Weight Weight 162 lb 4.8 oz I&O: 12/26/17 12/27/17 12/28/17 06:59 06:59 06:59 Intake Total 940 940 Balance 940 940 Result Diagrams: 12/25/17 03:34 12/27/17 03:56 Additional Labs: Accuchecks 12/26/17 12/26/17 12/26/17 19:59 16:27 10:32 POC Glucose 209 H 147 H 121 H EKG Reviewed by me: Yes Phys Exam - Physical Examination Constitutional: NAD HEENT: PERRLA, moist MMs, sclera anicteric Neck: no JVD, supple Respiratory: no wheezing, no rales, no rhonchi Cardiovascular: RRR, no significant murmur, no rub Gastrointestinal: soft, non-tender, no distention, positive bowel sounds Musculoskeletal: pulses present, edema present chronic skin changes Neurological: non-focal, normal sensation Lymphatic: no nodes Psychiatric: normal affect Skin: no rash, normal turgor Dx/Plan (1) Acute respiratory failure with hypoxia and hypercapnia Code(s): J96.01 - ACUTE RESPIRATORY FAILURE WITH HYPOXIA; J96.02 - ACUTE RESPIRATORY FAILURE WITH HYPERCAPNIA Status: Acute Comment: required bipap (2) Acute on chronic stage C diastolic heart failure Code(s): I50.33 - ACUTE ON CHRONIC DIASTOLIC (CONGESTIVE) HEART FAILURE Status : Acute Comment: on lasix IV (3) COPD exacerbation Code(s): J44.1 - CHRONIC OBSTRUCTIVE PULMONARY DISEASE W (ACUTE) EXACERBATION Status: Acute (4) Healthcare associated bacterial pneumonia Code(s): J15.9 - UNSPECIFIED BACTERIAL PNEUMONIA Status: Acute (5) Hyperkalemia Code(s): E87.5 - HYPERKALEMIA Status: Acute (6) UTI (urinary tract infection) Status: Acute (7) Atrial fibrillation Code(s): I48.91 - UNSPECIFIED ATRIAL FIBRILLATION Status: Chronic Qualifiers: Atrial fibrillation type: chronic Qualified Code(s): I48.2 - Chronic atrial fibrillation Comment: NSR.Rate controlled on digoxin and CCB (8) Chronic anticoagulation Code(s): Z79.01 - [employer] (CURRENT) USE OF ANTICOAGULANTS Status: Chronic (9) Diabetes type 2, controlled Code(s): E11.9 - TYPE 2 DIABETES MELLITUS WITHOUT COMPLICATIONS Status: Chronic (10) Elevated troponin Code(s): R79.89 - OTHER SPECIFIED ABNORMAL FINDINGS OF BLOOD CHEMISTRY Status : Chronic (11) HTN (hypertension) Code(s): I10 - ESSENTIAL (PRIMARY) HYPERTENSION Status: Chronic Qualifiers: Hypertension type: essential hypertension Qualified Code(s): I10 - Essential (primary) hypertension (12) Macrocytic anemia Code(s): D53.9 - NUTRITIONAL ANEMIA, UNSPECIFIED Status: Chronic (13) Metastatic breast cancer Code(s): C50.919 - MALIGNANT NEOPLASM OF UNSP SITE OF UNSPECIFIED FEMALE BREAST Status: Chronic (14) Obesity (BMI 30.0-34.9) Code(s): E66.9 - OBESITY, UNSPECIFIED Status: Chronic (15) Physical deconditioning Code(s): R53.81 - OTHER MALAISE Status: Chronic - Plan cont current plan of care, continue antibiotics, PT/OT, social director * pt is now DNR, * she will need bipap/cpap during night and as needed for hypoxia * medication reviewed as below * symptomatic treatment * will consider discharge to rehab if pulmonary OK * she may need outpt hospice * high risk for readmission. Review of Systems - Review of Systems Eyes: negative: Pain, Vision Change, Conjunctivae Inflammation, Eyelid Inflammation, Redness, Other ENT: negative: Ear Pain, Ear Discharge, Nose Pain, Nose Discharge, Nose Congestion, Mouth Pain, Mouth Swelling, Throat Pain, Throat Swelling, Other Respiratory: SOB with Excertion. negative: Cough, Dry, Shortness of Breath, Hemoptysis, Pleuritic Pain, Sputum, Wheezing Cardiovascular: negative: chest pain, palpitations, orthopnea, paroxysmal nocturnal dyspnea, edema, light headedness, other Gastrointestinal: negative: Nausea, Vomiting, Abdominal Pain, Diarrhea, Constipation, Melena, Hematochezia, Other Genitourinary: negative: Dysuria, Frequency, Incontinence, Hematuria, Retention , Other Musculoskeletal: negative: Neck Pain, Shoulder Pain, Arm Pain, Back Pain, Hand Pain, Leg Pain, Foot Pain, Other - Medications/Allergies Allergies/Adverse Reactions: Allergies Allergy/AdvReac Type Severity Reaction Status Date / Time erythromycin base Allergy Verified 05/23/16 02:23 codeine AdvReac Intermediate NAUSEA/VOMI Verified 06/25/15 12:20 TING rivaroxaban [From Xarelto] AdvReac Intermediate EXCESSIVE Verified 06/25/15 12: 20 BRUISING aspirin AdvReac Verified 12/17/17 14:55 dabigatran etexilate mesylate AdvReac EXCESSIVE Verified 06/25/15 12:20 [From Pradaxa] BRUISING warfarin sodium AdvReac EXCESSIVE Verified 06/25/15 12:19 [From Coumadin] BRUISING Medications: Current Medications Acetaminophen (Tylenol) 650 mg PO Q4H PRN PRN Reason: Headache/Fever/Mild Pain (1-3) Albuterol/Ipratropium (Duoneb) 3 ml NEB [id number] PRN PRN Reason: SOB &/or Wheezing Albuterol/Ipratropium (Duoneb) 3 ml NEB [id number] [facility] Last Admin: 12/27/17 07:33 Dose: 3 ml Anastrozole (Arimidex) 1 mg PO DAILY [facility] Last Admin: 12/27/17 09:11 Dose: 1 mg Artificial Tears (Tears Naturale) 2 drop EA EYE PRN PRN PRN Reason: Dry Eyes Aspirin (Aspirin Chewable) 81 mg PO DAILY [facility] Last Admin: 12/27/17 09:11 Dose: 81 mg Bisacodyl (Dulcolax) 10 mg [place] DAILYPRN PRN PRN Reason: Constipation Bisacodyl (Dulcolax) 10 mg PO DAILYPRN PRN PRN Reason: Constipation Budesonide (Pulmicort Neb Solution) 0.5 mg INH BID-RT [facility] Last Admin: 12/27/17 07:35 Dose: 0.5 mg Calcium Carbonate (Tums) 1,000 mg PO Q4H PRN PRN Reason: Heartburn or Indigestion Cefdinir (Omnicef) 300 mg PO BID [facility] Last Admin: 12/27/17 09:11 Dose: 300 mg Clonidine (Catapres) 0.1 mg PO Q4H PRN PRN Reason: SBP > ____ Clopidogrel Bisulfate (Plavix) 75 mg PO DAILY [facility] Last Admin: 12/27/17 09:11 Dose: 75 mg Dextrose/Water (Dextrose 50%) 25 gm SLOW IVP PRN PRN PRN Reason: Hypoglycemia Digoxin (Lanoxin) 0.125 mg PO DAILY [facility] Last Admin: 12/27/17 09:11 Dose: 0.125 mg Diltiazem HCl (Cardizem Cd) 180 mg PO DAILY [facility] Last Admin: 12/27/17 09:11 Dose: 180 mg Enoxaparin Sodium (Lovenox) 40 mg SC 0900 [facility] Last Admin: 12/27/17 09:11 Dose: 40 mg Furosemide (Lasix) 40 mg PO DAILY-AC [facility] Last Admin: 12/27/17 09:11 Dose: 40 mg Glucagon (Glucagon) 1 mg IM PRN PRN PRN Reason: Hypoglycemia Guaifenesin (Mucinex) 600 mg PO Q12HR [facility] Last Admin: 12/27/17 09:11 Dose: 600 mg Guaifenesin (Robitussin Sf) 200 mg PO Q4H PRN PRN Reason: Cough Hydralazine HCl (Apresoline) 10 mg SLOW IVP Q4H PRN PRN Reason: SBP > 180 and HR < 70 Dextrose/Water (D5w) 1,000 mls @ 0 mls/hr IV .Q0M PRN PRN Reason: Hypoglycemia Insulin Human Lispro (Humalog) 0 units SC .AGGRESSIVE SLIDING PRN PRN Reason: Aggressive Correctional Scale Last Admin: 12/25/17 18:25 Dose: 3 unit Insulin Human Lispro (Humalog) 0 units SC .BEDTIME SLIDING SC PRN PRN Reason: Bedtime Correctional Scale Last Admin: 12/26/17 20:26 Dose: 2 unit Loperamide HCl (Imodium) 2 mg PO PRN PRN PRN Reason: Diarrhea/Loose Stools Loratadine (Claritin) 10 mg PO DAILYPRN PRN PRN Reason: Sinus Symptoms Metoclopramide HCl (Reglan) 5 mg IVP Q4H PRN PRN Reason: Nausea Mineral Oil/White Petrolatum (Eucerin Cream) 0 gm TOP BIDPRN PRN PRN Reason: Dry Skin Pantoprazole Sodium (Protonix) 40 mg PO DAILY [facility] Last Admin: 12/27/17 09:12 Dose: 40 mg Prednisone (Prednisone) 40 mg PO DAILY [facility] Stop: 12/29/17 09:01 Last Admin: 12/27/17 09:11 Dose: 40 mg Saccharomyces Boulardii (Florastor) 250 mg PO DAILY [facility] Last Admin: 12/27/17 09:11 Dose: 250 mg Senna/Docusate Sodium (Senokot S) 2 tab PO BIDPRN PRN PRN Reason: Constipation Sodium Chloride ([place] Nasal [place] 0.65%) 0 ml EA NARE QIDPRN PRN PRN Reason: Nasal Congestion Sodium Chloride (Flush - Normal Saline) 10 ml IVF Q12HR [facility] Last Admin: 12/27/17 09:12 Dose: 10 ml Sodium Chloride (Flush - Normal Saline) 10 ml IVF PRN PRN PRN Reason: Saline Flush Last Admin: 12/25/17 05:38 Dose: 10 ml Throat Lozenges (Cepastat Lozenges) 1 karen PO Q2H PRN PRN Reason: Sore Throat
--- NOTE | 2017-12-27 11:25 | DIS ---
DATE OF ADMISSION: 12/24/2017 DATE OF DISCHARGE: 12/27/2017 PRIMARY CARE PHYSICIAN: Francisca call admission. DISCHARGE DISPOSITION: Rehabilitation. PRIMARY DISCHARGE DIAGNOSES: 1. Acute on chronic respiratory failure with hypoxia and hypercapnia. 2. Chronic obstructive pulmonary disease exacerbation. 3. Acute on chronic stage C diastolic heart failure. 4. Urinary tract infection. 5. Suspected healthcare associated pneumonia. 6. Hyperkalemia on admission. SECONDARY DISCHARGE DIAGNOSES: Diabetes type 2, macrocytic anemia, chronic anticoagulation, physical reconditioning, metastatic breast cancer, obesity, chronic diastolic heart failure, chronic obstructive pulmonary disease, chronic respiratory failure with hypoxia and hypercapnia requiring CPAP, atrial fibrillation, hypertension. PRIMARY PROCEDURE/OPERATION: BiPAP support. RADIOLOGICAL INVESTIGATION: Chest x-ray on admission showed cardiomegaly, pulmonary vascular congestion, airspace opacity consistent with pulmonary edema versus bilateral pneumonia. SIGNIFICANT LABORATORY DATA: WBC 5.4, hemoglobin 10.0, platelet 157,000. Sodium 138, potassium 5.1, BUN 64, creatinine 1.22, calcium 9.2. Urinalysis suggestive of UTI. Urine culture grew E. coli. Blood culture negative. DISCHARGE MEDICATIONS: Anastrozole 1 mg p.o. daily, aspirin 81 mg daily, Plavix 75 mg daily, digoxin 0.125 mg p.o. daily, Advair inhalation b.i.d., metformin 500 mg p.o. b.i.d., Daliresp 500 mcg p.o. daily, Mucinex 600 mg twice daily, Diamox 250 mg daily, Omnicef 300 mg p.o. b.i.d. for 5 days, Cardizem CD 180 mg p.o. daily, Lasix 40 mg daily, DuoNeb q.6 hourly, prednisone 40 mg p.o. daily for 5 days, Florastor 250 mg p.o. daily for 5 days, nitroglycerin and clonidine p.r.n. basis. CONTRAINDICATIONS: None. CODE STATUS: DNR. This was discussed during this admission. INPATIENT CONSULTANTS: Dr. Finnegan was following while in hospital. TEST RESULTS PENDING ON DISCHARGE: None. ALLERGIES: ERYTHROMYCIN, CODEINE, XARELTO, ASPIRIN. DISCHARGE PLAN: Post hospital, the patient is discharged to rehabilitation. HOSPITAL COURSE: A 72-year-old female who was admitted by me. Please see my HPI for further detail. This patient was at rehab. She was requesting to go to restroom and she did not have any assistance at that time and she ended up with the shortness of breath and her oxygen saturation dropped and she was not using oxygen at that time as well. They tried only a short period of time BiPAP at rehab and her oxygen saturation was in the 60s and that is why she was sent to emergency room for evaluation and subsequently the patient was admitted. The patient was treated with DuoNeb, Pulmicort, Solu-Medrol and Lasix. She had elevated BNP and her chest x-ray showed pulmonary vascular congestion and suspected bilateral pulmonary edema versus pneumonia and that is why she was empirically treated with antibiotic as well. Initially, we provided Rocephin and Levaquin. Subsequently, Levaquin was only continued, but the patient also had urinalysis, which was consistent with UTI and urine culture grew E. coli and based on culture and sensitivity result, we changed to Omnicef. During this admission, the patient had palliative care consultation and the patient's code status was changed to DNR. This patient will need BiPAP versus CPAP during night time as well as on an as needed basis. She will need continuous oxygen. This patient is given antibiotic and prednisone for 5 days. She will continue above-mentioned medication as ordered. This patient's long-term prognosis is very poor. She has end-stage COPD and advanced diastolic heart failure. This patient is at high risk for recurrent admission. Paper work for discharge done. Discharge medication reconciliation done. Out of hospital paperwork done. MAHIN
--- NOTE | 2017-12-27 12:42 | PRG ---
DATE OF SERVICE: 12/27/2017 SERVICE: Pulmonary Medicine. INTERVAL HISTORY: The patient is doing fine from a respiratory standpoint. Denies any current chest pain, fevers, chills, nausea or vomiting. Otherwise, there has been no interval change to her condi tion. She is breathing fairly comfortably. She has no specific complaints currently. She is on BiP AP. She was able to tolerate a short break from her CPAP yesterday. She has yet to be too terribly mobile and has not even been up today yet. PHYSICAL EXAMINATION: VITAL SIGNS: Afebrile, pulse 80, blood pressure 124/69, respirations 27, saturation 92% on BiPAP. GENERAL: The patient is awake and alert, in no apparent distress. LUNGS: Decent air entry. There is a prolonged expiratory phase with wheezing, crackles and rhonchi present. HEART: Normal rate, regular. ABDOMEN: Soft, nontender, nondistended. Bowel sounds are positive. MUSCULOSKELETAL: No cyanosis or clubbing. There is no pitting in the bilateral lower extremities. NEUROLOGIC: Grossly nonfocal. LABORATORY DATA: Creatinine 1.22. Basic metabolic profile is otherwise unremarkable. E. coli is gr owing in the urine. ASSESSMENT: 1. Acute on chronic hypoxic and hypercapnic respiratory failure. 2. Urinary tract infection. 3. Chronic obstructive pulmonary disease with acute exacerbation. 4. Breast cancer, widely metastatic. DISCUSSION AND PLAN: We will continue her BiPAP support. When she is discharged from the hospital, it is imperative that she wears her noninvasive ventilator at night, while sleeping and as needed dur ing the daytime. If she fails to do this in the future, we will need to transition her over to comfo rt care only. Omnicef can be discontinued after a total duration of 3 days, treating her uncomplicat ed urinary tract infection. If she remains in house, Pulmonary will continue to follow. I will rein troduce a small dose of Lasix starting tomorrow morning.
[2017-12-28 04:59] LABS: Anion Gap 14 mmol/L (10-20); BUN (Urea Nitrogen) 70 mg/dL (9.8-20.1); Calc. Creatinine Clearance 45 mL/min (70-130); Calcium 9.1 mg/dL (7.8-10.44); Carbon Dioxide 35 mmol/L (23-31); Chloride 96 mmol/L (98-107); Estimated GFR-MDRD 39; Glucose 139 mg/dL (83-110); Potassium 5.1 mmol/L (3.5-5.1); Sodium 140 mmol/L (136-145)
[2017-12-28] MEDS: Budesonide 0.5 MG/2 ML NEB INH SCH ×2 (06:58→18:20)
[2017-12-28] MEDS: Enoxaparin Sodium 40 MG/0.4 ML SYRINGE SC SCH (08:51)
--- NOTE | 2017-12-28 08:52 | PDOC.PN ---
- Subjective Encounter Start Date: 12/28/17 Encounter Start Time: 08:40 pt desaturates very quickly and takes time to go back to level up, she is very weak - Objective Resuscitation Status: Resuscitation Status DNR:Do Not Resuscitate MAR Reviewed: Yes Vital Signs & Weight: Vital Signs (12 hours) Temp Pulse Resp BP Pulse Ox 12/28/17 07:26 96.6 F L 64 32 H 132/73 99 12/28/17 06:58 68 30 H 86 L 12/28/17 06:57 72 30 H 86 L 12/28/17 06:54 78 88 L 12/28/17 04:23 96.8 F L 75 22 H 113/54 L 86 L 12/28/17 02:41 74 12/28/17 00:24 24 H 12/28/17 00:20 97.2 F L 71 24 H 119/79 82 L 12/27/17 23:11 70 32 H Weight Weight 162 lb 4.8 oz I&O: 12/27/17 12/28/17 12/29/17 06:59 06:59 06:59 Intake Total 940 270 Balance 940 270 Result Diagrams: 12/25/17 03:34 12/28/17 04:17 Additional Labs: Accuchecks 12/28/17 12/27/17 12/27/17 06:06 21:26 17:15 POC Glucose 136 H 215 H 234 H 12/27/17 10:34 POC Glucose 154 H EKG Reviewed by me: Yes Phys Exam - Physical Examination respi distress HEENT: PERRLA, sclera anicteric Neck: no JVD, supple coarse breath sound, few scattered rales Cardiovascular: RRR, no significant murmur, no rub Gastrointestinal: soft, non-tender, no distention, positive bowel sounds Musculoskeletal: pulses present, edema present chronic skin changes Neurological: moves all 4 limbs Psychiatric: normal affect Skin: no rash, normal turgor Dx/Plan (1) Acute respiratory failure with hypoxia and hypercapnia Code(s): J96.01 - ACUTE RESPIRATORY FAILURE WITH HYPOXIA; J96.02 - ACUTE RESPIRATORY FAILURE WITH HYPERCAPNIA Status: Acute Comment: required bipap (2) Acute on chronic stage C diastolic heart failure Code(s): I50.33 - ACUTE ON CHRONIC DIASTOLIC (CONGESTIVE) HEART FAILURE Status : Acute Comment: on lasix IV (3) COPD exacerbation Code(s): J44.1 - CHRONIC OBSTRUCTIVE PULMONARY DISEASE W (ACUTE) EXACERBATION Status: Acute (4) Healthcare associated bacterial pneumonia Code(s): J15.9 - UNSPECIFIED BACTERIAL PNEUMONIA Status: Acute (5) Hyperkalemia Code(s): E87.5 - HYPERKALEMIA Status: Acute (6) UTI (urinary tract infection) Status: Acute (7) Atrial fibrillation Code(s): I48.91 - UNSPECIFIED ATRIAL FIBRILLATION Status: Chronic Qualifiers: Atrial fibrillation type: chronic Qualified Code(s): I48.2 - Chronic atrial fibrillation Comment: NSR.Rate controlled on digoxin and CCB (8) Chronic anticoagulation Code(s): Z79.01 - [place] (CURRENT) USE OF ANTICOAGULANTS Status: Chronic (9) Diabetes type 2, controlled Code(s): E11.9 - TYPE 2 DIABETES MELLITUS WITHOUT COMPLICATIONS Status: Chronic (10) Elevated troponin Code(s): R79.89 - OTHER SPECIFIED ABNORMAL FINDINGS OF BLOOD CHEMISTRY Status : Chronic (11) HTN (hypertension) Code(s): I10 - ESSENTIAL (PRIMARY) HYPERTENSION Status: Chronic Qualifiers: Hypertension type: essential hypertension Qualified Code(s): I10 - Essential (primary) hypertension (12) Macrocytic anemia Code(s): D53.9 - NUTRITIONAL ANEMIA, UNSPECIFIED Status: Chronic (13) Metastatic breast cancer Code(s): C50.919 - MALIGNANT NEOPLASM OF UNSP SITE OF UNSPECIFIED FEMALE BREAST Status: Chronic (14) Obesity (BMI 30.0-34.9) Code(s): E66.9 - OBESITY, UNSPECIFIED Status: Chronic (15) Physical deconditioning Code(s): R53.81 - OTHER MALAISE Status: Chronic - Plan cont current plan of care, continue antibiotics, PT/OT, social group worker, respiratory therapy * this pt I think not stable for discharge as worried about her bounceback, given her level of hypoxia * palliative care on case * eventually she will need bipap at home, as she is dependant on that * prognosis is very poor * will update family. Review of Systems - Review of Systems Other: not reliable due to her level of cognitive status - Medications/Allergies Allergies/Adverse Reactions: Allergies Allergy/AdvReac Type Severity Reaction Status Date / Time erythromycin base Allergy Verified 05/23/16 02:23 codeine AdvReac Intermediate NAUSEA/VOMI Verified 06/25/15 12:20 TING rivaroxaban [From Xarelto] AdvReac Intermediate EXCESSIVE Verified 06/25/15 12: 20 BRUISING aspirin AdvReac Verified 12/17/17 14:55 dabigatran etexilate mesylate AdvReac EXCESSIVE Verified 06/25/15 12:20 [From Pradaxa] BRUISING warfarin sodium AdvReac EXCESSIVE Verified 06/25/15 12:19 [From Coumadin] BRUISING Medications: Current Medications Acetaminophen (Tylenol) 650 mg PO Q4H PRN PRN Reason: Headache/Fever/Mild Pain (1-3) Albuterol/Ipratropium (Duoneb) 3 ml NEB [id number] PRN PRN Reason: SOB &/or Wheezing Albuterol/Ipratropium (Duoneb) 3 ml NEB [id number] [facility] Last Admin: 12/28/17 06:57 Dose: 3 ml Anastrozole (Arimidex) 1 mg PO DAILY [facility] Last Admin: 12/27/17 09:11 Dose: 1 mg Artificial Tears (Tears Naturale) 2 drop EA EYE PRN PRN PRN Reason: Dry Eyes Aspirin (Aspirin Chewable) 81 mg PO DAILY [facility] Last Admin: 12/27/17 09:11 Dose: 81 mg Bisacodyl (Dulcolax) 10 mg [place] DAILYPRN PRN PRN Reason: Constipation Bisacodyl (Dulcolax) 10 mg PO DAILYPRN PRN PRN Reason: Constipation Budesonide (Pulmicort Neb Solution) 0.5 mg INH BID-RT [facility] Last Admin: 12/28/17 06:58 Dose: 0.5 mg Calcium Carbonate (Tums) 1,000 mg PO Q4H PRN PRN Reason: Heartburn or Indigestion Cefdinir (Omnicef) 300 mg PO BID [facility] Last Admin: 12/27/17 20:18 Dose: 300 mg Clonidine (Catapres) 0.1 mg PO Q4H PRN PRN Reason: SBP > ____ Clopidogrel Bisulfate (Plavix) 75 mg PO DAILY [facility] Last Admin: 12/27/17 09:11 Dose: 75 mg Dextrose/Water (Dextrose 50%) 25 gm SLOW IVP PRN PRN PRN Reason: Hypoglycemia Digoxin (Lanoxin) 0.125 mg PO DAILY [facility] Last Admin: 12/27/17 09:11 Dose: 0.125 mg Diltiazem HCl (Cardizem Cd) 180 mg PO DAILY [facility] Last Admin: 12/27/17 09:11 Dose: 180 mg Enoxaparin Sodium (Lovenox) 40 mg SC 0900 [facility] Last Admin: 12/27/17 09:11 Dose: 40 mg Furosemide (Lasix) 40 mg PO DAILY-[facility] Last Admin: 12/27/17 09:11 Dose: 40 mg Glucagon (Glucagon) 1 mg IM PRN PRN PRN Reason: Hypoglycemia Guaifenesin (Mucinex) 600 mg PO Q12HR [facility] Last Admin: 12/27/17 20:18 Dose: 600 mg Guaifenesin (Robitussin Sf) 200 mg PO Q4H PRN PRN Reason: Cough Hydralazine HCl (Apresoline) 10 mg SLOW IVP Q4H PRN PRN Reason: SBP > 180 and HR < 70 Dextrose/Water (D5w) 1,000 mls @ 0 mls/hr IV .Q0M PRN PRN Reason: Hypoglycemia Insulin Human Lispro (Humalog) 0 units SC .AGGRESSIVE SLIDING PRN PRN Reason: Aggressive Correctional Scale Last Admin: 12/25/17 18:25 Dose: 3 unit Insulin Human Lispro (Humalog) 0 units SC .BEDTIME SLIDING SC PRN PRN Reason: Bedtime Correctional Scale Last Admin: 12/26/17 20:26 Dose: 2 unit Loperamide HCl (Imodium) 2 mg PO PRN PRN PRN Reason: Diarrhea/Loose Stools Loratadine (Claritin) 10 mg PO DAILYPRN PRN PRN Reason: Sinus Symptoms Metoclopramide HCl (Reglan) 5 mg IVP Q4H PRN PRN Reason: Nausea Mineral Oil/White Petrolatum (Eucerin Cream) 0 gm TOP BIDPRN PRN PRN Reason: Dry Skin Pantoprazole Sodium (Protonix) 40 mg PO DAILY [facility] Last Admin: 12/27/17 09:12 Dose: 40 mg Prednisone (Prednisone) 40 mg PO DAILY [facility] Stop: 12/29/17 09:01 Last Admin: 12/27/17 09:11 Dose: 40 mg Saccharomyces Boulardii (Florastor) 250 mg PO DAILY [facility] Last Admin: 12/27/17 09:11 Dose: 250 mg Senna/Docusate Sodium (Senokot S) 2 tab PO BIDPRN PRN PRN Reason: Constipation Sodium Chloride ([place] Nasal [place] 0.65%) 0 ml EA NARE QIDPRN PRN PRN Reason: Nasal Congestion Sodium Chloride (Flush - Normal Saline) 10 ml IVF Q12HR [facility] Last Admin: 12/27/17 20:18 Dose: 10 ml Sodium Chloride (Flush - Normal Saline) 10 ml IVF PRN PRN PRN Reason: Saline Flush Last Admin: 12/25/17 05:38 Dose: 10 ml Throat Lozenges (Cepastat Lozenges) 1 karen PO Q2H PRN PRN Reason: Sore Throat
[2017-12-28] MEDS: predniSONE 20 MG TAB PO SCH (08:53)
[2017-12-28] MEDS: Clopidogrel Bisulfate 75 MG TAB PO SCH (08:53)
[2017-12-28] MEDS: guaiFENesin ER 600 MG TAB PO SCH ×2 (08:53→22:09)
[2017-12-28] MEDS: Cefdinir 300 MG CAP PO SCH ×2 (08:53→22:09)
[2017-12-28] MEDS: Saccharomyces boulardii 250 MG CAP PO SCH (08:53)
[2017-12-28] MEDS: Furosemide 40 MG TAB PO SCH (08:53)
[2017-12-28] MEDS: Anastrozole 1 MG TAB PO SCH (08:53)
[2017-12-28] MEDS: Digoxin 0.125 MG TAB PO SCH (08:53)
--- NOTE | 2017-12-28 12:18 | PRG ---
DATE OF SERVICE: 12/28/2017 SERVICE: Pulmonary Medicine. INTERVAL HISTORY: Once again, the patient has encephalopathy which is quite severe. We have been ti trating up her oxygen all night long, which has extinguished her respiratory drive. Currently, she h as total body asterixis. She is somnolent. She is sitting in a chair. She will wake up but is grog gy. Without stimulation, she will fall back to sleep within 10 seconds. HEENT: Normocephalic, atraumatic. Sclerae are white, conjunctivae pink. Oral mucosa is moist witho ut lesions. LUNGS: Excellent air entry. There is a prolonged expiratory phase. Rhonchi and independent crackle s are minimal. HEART: Normal rate, regular. ABDOMEN: Soft, nontender, nondistended. Bowel sounds are positive. MUSCULOSKELETAL: No cyanosis or clubbing. There is 1+ pitting in the bilateral lower extremities wi th chronic stasis changes. LABORATORY DATA: WBC 5.4, hemoglobin 10.0, platelets 157,000. Creatinine 1.34, BUN 70. Basic metab olic profile is otherwise unremarkable. Urine culture is growing E. coli. Blood cultures x2 are unr emarkable. ASSESSMENT: 1. Acute on chronic hypoxic and hypercapnic respiratory failure. 2. Urinary tract infection. 3. Chronic obstructive pulmonary disease with acute exacerbation. 4. Metabolic encephalopathy. 5. Breast cancer, widely metastatic. DISCUSSION AND PLAN: We will switch over to [facility]. We are going to talk to the patient's daughter a bout what a long-term picture looks like here. The patient has previously said that she would not wa nt to live permanently with a long-term facility, but truth be told, there is absolutely no way that this patient is ultimately going to get back to her home without significant assistance. The p raymond has previously told me that if she cannot live at home or get back home that she may not want aggressive maneuvers moving forward. As such, if the is appropriate, we may be transitioning t he patient over to hospice. I have changed her over to AVAPS and decreased her FIO2. I am going to tolerate saturations down to 82% and hopefully this will cause the patient to steel pickler touch. S he will remain in the IMCU.
[2017-12-28] MEDS ORDERED: Lorazepam 2 MG/ML VIAL SLOW IVP SCH (18:00)
[2017-12-28] MEDS ORDERED: Morphine 2 MG/ML SYRINGE SLOW IVP SCH (18:00)
[2017-12-28 19:56] VITALS: BP 138/94; TEMP 98.8
--- NOTE | 2017-12-29 15:28 | DIS ---
PRIMARY CARE PHYSICIAN: [facility] call admission DATE OF ADMISSION: 12/24/2017 DATE OF DISCHARGE: 12/28/2017 DISCHARGE DISPOSITION: Inpatient hospice facility for comfort care. 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 SECONDARY DISCHARGE DIAGNOSES: Physical deconditioning, opacity, metastatic breast cancer, macrocyti c anemia, hypertension, chronically elevated troponin, diabetes type 2, chronic anticoagulation, atri al fibrillation, chronic obstructive pulmonary disease, chronic diastolic heart failure, chronic resp iratory failure. PRIMARY PROCEDURE/OPERATION: None. RADIOLOGICAL INVESTIGATION: Chest x-ray showed bilateral infiltration as well as bibasilar pneumonia /pulmonary edema. SIGNIFICANT LABORATORY DATA: WBC 5.4, hemoglobin 10.0, platelets 157. Sodium 140, potassium 5.1, BU N 70, creatinine 1.34, calcium 9.1. Urinalysis suggestive of UTI. Urine culture grew E. coli. Bloo d culture negative. DISCHARGE MEDICATIONS: Patient is discharged to inpatient hospice for comfort care. Hospice team wi ll decide about comfort care medicine at hospice facility. CONTRAINDICATIONS: None. CODE STATUS: DNR. INPATIENT CONSULTANTS: Dr. Finnegan was following while in hospital. TEST RESULTS PENDING ON DISCHARGE: None. ALLERGIES: ERYTHROMYCIN, CODEINE, XARELTO and ASPIRIN. DISCHARGE PLAN: Post hospital, the patient is discharged to inpatient hospice for comfort care. HOSPITAL COURSE: A 72-year-old female who was recently admitted in our hospital for respiratory fail ure. She was having hard time to maintain oxygen saturations without BiPAP. She had physical recond itioning and she was recently discharged to inpatient rehab facility where patient had minor exertion and her oxygen saturation dropped and it was not coming up and that is why she was sent to ER. This patient was suffering from acute on chronic diastolic heart failure as well as COPD exacerbation with pneumonia and she had acute on chronic respiratory failure. She was required IMCU admission. She was treated with BiPAP. She was given broad spectrum antibiotic therapy and diuretic therapy. S he also had a UTI and her urine culture grew E. coli. We noted that during this admission without BiPAP, patient's saturation was dropping to 60s and she w as having significant physical deconditioning. We discussed with the patient about goal of care and she wanted to be a DNR. Family member was notified about patient's condition and after a lengthy dis cussion with the patient and family member, patient decided to go for comfort care only. At that point, we consulted palliative care and palliative care also discussed with the family member , patient was evaluated by inpatient hospice team and she was approved for inpatient hospice care. Paperwork for discharge done and is out of hospital DNR paper work done. Total time spent on discharge day 32 minutes. Please see my progress note from that day as well. This is late dictation but on the day of discharge, we spent almost more than 30 minutes.
== END 2017-12-28 22:54 | disposition hospice, inpatient (51) | DRG 177 ==
LOC: ERS 12:23 → IMCU/EMU 16:15
PROVIDERS: ADMIT Internal Medicine; ATTEND Internal Medicine
PROC: 5A09557 Assistance with Respiratory Ventilation, Greater than 96 Consecutive Hours, Continuous Positive Airway Pressure (ICD-10-PCS; principal; 2017-12-24)
DX: J15.6 Pneumonia due to other Gram-negative bacteria (principal); J96.21 Acute and chronic respiratory failure with hypoxia; I50.33 Acute on chronic diastolic (congestive) heart failure; J96.22 Acute and chronic respiratory failure with hypercapnia; G93.41 Metabolic encephalopathy; N39.0 Urinary tract infection, site not specified; J44.0 Chronic obstructive pulmonary disease with (acute) lower respiratory infection; J44.1 Chronic obstructive pulmonary disease with (acute) exacerbation; J15.9 Unspecified bacterial pneumonia; I11.0 Hypertensive heart disease with heart failure; E87.5 Hyperkalemia; I35.0 Nonrheumatic aortic (valve) stenosis; I36.1 Nonrheumatic tricuspid (valve) insufficiency; I37.1 Nonrheumatic pulmonary valve insufficiency; F41.9 Anxiety disorder, unspecified; F32.9 Major depressive disorder, single episode, unspecified; C50.911 Malignant neoplasm of unspecified site of right female breast; Z99.81 Dependence on supplemental oxygen; M81.0 Age-related osteoporosis without current pathological fracture; I48.0 Paroxysmal atrial fibrillation; E11.9 Type 2 diabetes mellitus without complications; Z79.84 Long term (current) use of oral hypoglycemic drugs; Z87.891 Personal history of nicotine dependence; Z88.8 Allergy status to other drugs, medicaments and biological substances; Y95 Nosocomial condition; Z51.5 Encounter for palliative care; D63.0 Anemia in neoplastic disease; Z79.01 Long term (current) use of anticoagulants; B96.20 Unspecified Escherichia coli [E. coli] as the cause of diseases classified elsewhere; Z66 Do not resuscitate; E66.9 Obesity, unspecified; Z68.29 Body mass index [BMI] 29.0-29.9, adult; D53.9 Nutritional anemia, unspecified; Z91.19 Patient's noncompliance with other medical treatment and regimen
CPT/HCPCS: 36415; 36416; 71045; 80048; 80053; 81001; 82330; 82553; 82803; 83605; 83735; 83880; 84100; 84484; 85025; 87040; 87077; 87086; 87186; 93005; 94640; 94660; 94760; 96361; 96374; G8978-GP-CM; G8979-GP-CK; G8987-GO-CM; G8988-GO-CK; J1650; J1940; J1956; J2060; J2270; J2920; J2930; J3370; J7050; J7506; J7620; J7626